=== PATIENT | male | born 1940 | race Caucasian/White ===

== ENCOUNTER → 2017-02-08 | Outpatient (CLI) | payer MEDICARE, OTHER | LOC: OD 08:33 | PROVIDERS: ATTEND Preventive Medicine Undersea and Hyperbaric Medicine | DX: L97.522 Non-pressure chronic ulcer of other part of left foot with fat layer exposed (principal) ==

== ENCOUNTER → 2017-03-15 | Outpatient (CLI) | payer MEDICARE, OTHER ==
--- NOTE | 2017-03-15 12:30 | RADIOLOGY REPORT (SQ) ---
EXAM DESCRIPTION: FOOT LEFT COMPLETE COMPLETED DATE/TIME: 03/15/2017 9:17 am REASON FOR STUDY: NON PRESSURE ULCER LT FOOT; FAT LAYER EXPOSED L97.522 NON-PRS CHRONIC ULCER OTH P RT LEFT FOOT W FAT LAYER COMPARISON: Foot films 05/09/2016, 07/12/2016, 07/26/2016, 08/10/2016, 09/12/2016, 02/08/2017 NUMBER OF VIEWS: Three views. TECHNIQUE: AP, lateral and oblique radiographic images acquired of the left foot. LIMITATIONS: Fiberglass boot artifact FINDINGS: MINERALIZATION: Normal. BONES: Old nonunited fracture distal left 5th metatarsal and the distal metaphysis. Demineralized 5t h toe phalanges. Stable bony resorption along the plantar aspect of 1st metatarsophalangeal joint adjacent to the ulce r. JOINTS: Fusion across the 1st MTP joint with K-wires unchanged. Advanced arthritis at the 1st TMT golden int with bony spurring. Advanced arthritis at the 2nd 3rd and 4th MTP joints with bony remodeling of the metatarsal heads. SOFT TISSUES: Plantar ulcer over the chest metatarsophalangeal joint region is not well seen. OTHER: No other significant finding. IMPRESSION: Stable appearance of the left foot compared to 02/08/2017. TECHNICAL DOCUMENTATION: JOB ID: [id number] [employer]- All Rights Reserved
== END ==
LOC: OD 08:18
PROVIDERS: ATTEND Preventive Medicine Undersea and Hyperbaric Medicine
DX: L97.522 Non-pressure chronic ulcer of other part of left foot with fat layer exposed (principal)

== ENCOUNTER → 2017-04-15 | Outpatient (CLI) | payer MEDICARE, OTHER ==
[2017-04-15 09:32] LABS: APPEARANCE,URINE CLEAR; BILIRUBIN,URINE NEGATIVE (NEGATIVE); GLUCOSE, URINE NEGATIVE (NEGATIVE); KETONES,URINE NEGATIVE (NEGATIVE); LEUKOCYTE ESTERASE,URINE NEGATIVE (NEGATIVE); NITRITE,URINE NEGATIVE (NEGATIVE); PROTEIN,URINE NEGATIVE (NEGATIVE); URINE SPECIFIC GRAVITY 1.006; UROBILINOGEN,URINE NEGATIVE mg/dL (<2.0)
--- NOTE | 2017-04-15 09:33 | RADIOLOGY REPORT (SQ) ---
EXAM DESCRIPTION: CHEST PA/LATERAL COMPLETED DATE/TIME: 04/15/2017 9:17 am REASON FOR STUDY: PRE OP COMPARISON: 08/16/2016 NUMBER OF VIEWS: Two view. TECHNIQUE: Frontal and lateral radiographic views of the chest acquired. LIMITATIONS: None. FINDINGS: LUNGS AND PLEURA: No opacities, masses or pneumothorax. No pleural effusion. MEDIASTINUM AND HILAR STRUCTURES: No masses or contour abnormalities. HEART AND VASCULATURE: Heart normal size. No evidence for failure. BONY STRUCTURES: No acute findings. HARDWARE: None. OTHER: No other significant finding. IMPRESSION: NO SIGNIFICANT RADIOGRAPHIC FINDING IN THE CHEST. TECHNICAL DOCUMENTATION: JOB ID: [id number] [employer]- All Rights Reserved
[2017-04-15 09:39] LABS: ABSOLUTE BASOPHILS # (AUTO) 0.1 10^3/uL (0.0-0.2); ABSOLUTE EOSINOPHILS # (AUTO) 0.2 10^3/uL (0.0-0.6); ABSOLUTE LYMPHOCYTES (AUTO) 1.4 10^3/uL (0.5-4.7); ABSOLUTE MONOCYTES (AUTO) 0.7 10^3/uL (0.1-1.4); ABSOLUTE NEUT (AUTO) 4.3 10^3/uL (1.7-8.2); BASOPHILS % (AUTO) 0.8 % (0-2); EOSINOPHILS % (AUTO) 3.5 % (0-6); HEMATOCRIT 37.2 % (37.9-51.0); HEMOGLOBIN 12.8 g/dL (13.5-17.0); HGB HCT DIFFERENCE 1.2; MEAN CORPUSCULAR HEMOGLOBIN 32.3 pg (27.0-33.4); MEAN CORPUSCULAR HGB CONC 34.3 g/dL (32.0-36.0); MEAN CORPUSCULAR VOLUME 94 fl (80-97); MONOCYTES % (AUTO) 10.4 % (3-13); RED BLOOD COUNT 3.95 10^6/uL (4.35-5.55); RED CELL DISTRIBUTION WIDTH 13.5 % (11.5-14.0); SEGMENTED NEUTROPHILS % (AUTO) 64.3 % (42-78); WHITE BLOOD COUNT 6.7 10^3/uL (4.0-10.5)
[2017-04-15 10:09] LABS: ANION GAP 9 (5-19); BLOOD UREA NITROGEN 11 mg/dL (7-20); CALCIUM 9.1 mg/dL (8.4-10.2); CARBON DIOXIDE 27 mmol/L (22-30); CHLORIDE 98 mmol/L (98-107); CREATININE RESULT 0.83 mg/dL (0.52-1.25); GLUCOSE 86 mg/dL (75-110); POTASSIUM 4.5 mmol/L (3.6-5.0); SODIUM 134.2 mmol/L (137-145)
--- NOTE | 2017-04-15 12:21 | EKG REPORT ---
SEVERITY:- OTHERWISE NORMAL ECG - SINUS RHYTHM BORDERLINE LEFT AXIS DEVIATION : Confirmed by: Jake Lopez 15-Apr-2017 12:19:55
== END ==
LOC: OD 07:57
PROVIDERS: ATTEND Orthopaedic Surgery
DX: Z01.810 Encounter for preprocedural cardiovascular examination (principal); Z01.812 Encounter for preprocedural laboratory examination; Z01.818 Encounter for other preprocedural examination; E11.9 Type 2 diabetes mellitus without complications
CPT/HCPCS: 36415; 71020; 80048; 81001; 83036; 85025; 93005; 93010

== ENCOUNTER 2017-05-13 09:12 | Inpatient (IN) | payer MEDICARE, OTHER ==
[~2017-05-13 09:12] MED LIST: BUPIVACAINE INJ/PF LIPOSOME/PF 266 MG/20 ML SDV IJ PRN; BUPIVACAINE INJ/PF LIPOSOME/PF 266 MG/20 ML SDV ONE; CEFAZOLIN INJ 1 GM VIAL IV PRN; IBUPROFEN 800 MG/NS 250 ML IV PRN; LACTATED RINGERS 1000 ML IV PRN; LANSOPRAZOLE 15 MG TAB.RAP.DR PO PRN; LIDOCAINE 0.5% INJ-PF (5 MG/ML) 50 ML SDV SUBCUT PRN; OXYCODONE HCL SR 10 MG TABLET PO PRN; SCOPOLAMINE HYDROBROMIDE 1.5 MG PATCH.TD72 TOP PRN; THROMBIN (BOVINE) 5000 UNIT EPITAXIS KIT ONE; THROMBIN (BOVINE) TOPICAL 20000 UNIT VIAL ONE; VANCOMYCIN HCL 1,000 MG in DEXTROSE 5%-WATER 250 ML IV SCH
[2017-05-13 10:23] LABS: PROTHROMBIN TIME 14.2 SEC (11.4-15.4)
[2017-05-13 10:24] LABS: PARTIAL THROMBOPLASTIN TIME 40.5 SEC (23.5-35.8)
[2017-05-13] MEDS ORDERED: PROPOFOL INJ 200 MG/20 ML VIAL IV ONE (10:48)
[2017-05-13] MEDS ORDERED: TRANEXAMIC ACID INJ/PF 1,000 MG/10 ML SDV IV ONE ×3 (10:48→17:00)
[2017-05-13] MEDS ORDERED: ONDANSETRON HCL INJ/PF 4 MG/2 ML SDV ONE (10:48)
[2017-05-13] MEDS ORDERED: MIDAZOLAM 2 MG/2 ML INJ ONE (10:48)
[2017-05-13] MEDS ORDERED: DIPHENHYDRAMINE HCL 50 MG/ML VIAL IV PRN ×2 (11:47→12:46)
[2017-05-13] MEDS ORDERED: MORPHINE SULFATE 10 MG/ML INJ IV PRN ×3 (11:47→12:46)
[2017-05-13] MEDS ORDERED: FENTANYL CITRATE INJ/PF 100 MCG/2 ML AMPUL IV PRN ×3 (11:47)
[2017-05-13] MEDS ORDERED: MEPERIDINE HCL/PF INJ 25 MG/1 ML DISP.SYRIN IV PRN (11:47)
[2017-05-13] MEDS ORDERED: VANCOMYCIN HCL INJ 1000 MG VIAL ONE (11:50)
[2017-05-13] MEDS ORDERED: ONDANSETRON 4 MG TAB.RAPDIS PO PRN ×2 (12:46→14:13)
[2017-05-13] MEDS ORDERED: RINGERS SOLUTION,LACTATED 1,000 ML IV PRN (12:46)
[2017-05-13] MEDS ORDERED: ZOLPIDEM TARTRATE 5 MG TABLET PO PRN (12:46)
[2017-05-13] MEDS ORDERED: ACETAMINOPHEN 325 MG TABLET PO PRN (12:46)
[2017-05-13] MEDS ORDERED: ONDANSETRON HCL INJ/PF 4 MG/2 ML SDV IV PRN (12:46)
[2017-05-13] MEDS ORDERED: OXYCODONE HCL IR 5 MG TABLET PO PRN (12:46)
[2017-05-13] MEDS ORDERED: (PENDING PHARMACY ID) (Ketotifen Fumarate [Refresh] 5 ML) OP PRN (12:46)
[2017-05-13] MEDS ORDERED: MAG HYDROX/AL HYDROX/SIMETH SUSP 30 ML UDCUP PO PRN (12:46)
[2017-05-13] MEDS ORDERED: MORPHINE SULFATE 10 MG/ML INJ IM PRN (12:46)
--- NOTE | 2017-05-13 12:46 | Operative Report ---
Operative Report DATE OF SURGERY: 05/13/17 PREOPERATIVE DIAGNOSIS: Left knee arthritis OPERATION: Knee arthroplasty left SURGEON: COLT MARK ANESTHESIA: Spinal TISSUE REMOVED OR ALTERED: Bone to pathology ESTIMATED BLOOD LOSS: 100 PROCEDURE: Implants used: Femur: Bryson triathlon #8 CR femur Tibia: 7 tibia Tibial liner: 9 mm CS insert Patella: 38 mm oval patella Procedure with the patient supine on the operating table the left the limb is prepped and draped in a sterile fashion. The limb was elevated for exsanguination and the tourniquet inflated to 280 torr. A standard midline median parapatellar approach the knee is taken. Access is gained to the femoral canal through the intercondylar notch. Intramedullary alignment instrumentation used to resect 10 mm of distal femur in 5 of valgus. Sizing guide indicated a size 8 femur. Appropriate cutting jig is then used to fashion anterior posterior and chamfer cuts. A trial reduction femurs performed and this is judged to be adequate. Attention was next turned to the tibia. Using an extra medullary alignment system 13 millimeters was resected off the lateral tibial plateau for medial bone loss. This is sized to a size 7 tibia. A trial reduction was now performed with a 8 femur and a 7 tibia using a 9 millimeters spacer. It is full extension and central patellofemoral tracking. The articular surface the patella was next resected using an oscillating saw. All trial implants were removed. Polymethylmethacrylate is mixed and used to cement the above implants in place. On adequate curing the cement excess cement was removed the tourniquet was deflated hemostasis obtained the wound is then closed in layers using interrupted Vicryl followed by brendan. A sterile compressive dressing was applied and the patient returned to recovery room in satisfactory condition.
[2017-05-13] MEDS ORDERED: DEXTROSE 40% GEL 15 GM TUBE X 2 PO PRN (13:41)
[2017-05-13] MEDS ORDERED: DEXTROSE 50%-WATER SYRINGE 25 GM/50 ML DOSE IV PRN (13:41)
[2017-05-13] MEDS ORDERED: DEXTROSE 50%-WATER SYRINGE 12.5 GM/25 ML DOSE IV PRN (13:41)
[2017-05-13] MEDS ORDERED: DEXTROSE 40% GEL 15 GM TUBE PO PRN (13:41)
[2017-05-13] MEDS ORDERED: GLUCAGON,HUMAN RECOMB 1 MG INJ IM PRN (13:41)
[2017-05-13] MEDS ORDERED: POLYVINYL ALCOHOL 1.4% OPH SOLN 15 ML OU PRN (14:31)
--- NOTE | 2017-05-13 14:42 | RADIOLOGY REPORT (SQ) ---
EXAM DESCRIPTION: KNEE LEFT 2 VIEWS COMPLETED DATE/TIME: 05/13/2017 2:15 pm REASON FOR STUDY: Post OP -Long Cassette in PACU M17.12 UNILATERAL PRIMARY OSTEOARTHRITIS, LEFT KNE E COMPARISON: None. NUMBER OF VIEWS: Two view(s). TECHNIQUE: Digital radiographic images of the left knee post-procedure. LIMITATIONS: None. FINDINGS: BONES: No worrisome or unexpected findings post-procedure. DEVICE: Total knee arthroplasty. SOFT TISSUES: No worrisome findings. Expected postoperative soft tissue changes. IMPRESSION: SATISFACTORY POSTOPERATIVE LEFT KNEE. TECHNICAL DOCUMENTATION: JOB ID: [id number] [employer]- All Rights Reserved
[2017-05-13] MEDS: MORPHINE SULFATE 10 MG/ML INJ IV PRN ×2 (17:17→21:00)
[2017-05-13] MEDS: SENNOSIDES/DOCUSATE 8.6-50 MG 1 EACH TABLET PO SCH (17:32)
[2017-05-13] MEDS ORDERED: IBUPROFEN 800 MG in NORMAL SALINE 250 ML IV SCH (18:00)
--- NOTE | 2017-05-13 19:22 | EKG REPORT ---
SEVERITY:- ABNORMAL ECG - ATRIAL FIBRILLATION BORDERLINE LEFT AXIS DEVIATION : Confirmed by: Carlitos Ferreira MD 13-May-2017 19:21:53
[2017-05-13] MEDS ORDERED: OXYCODONE HCL SR 10 MG TABLET PO SCH (22:00)
[2017-05-13] MEDS ORDERED: INSULIN LISPRO 100 UNIT/ML 3 ML VIAL SUBCUT SCH (22:00)
[2017-05-13] MEDS: GABAPENTIN 400 MG CAPSULE PO SCH (22:10)
[2017-05-13] MEDS: IBUPROFEN 800 MG in NORMAL SALINE 250 ML IV SCH (22:11)
[2017-05-13] MEDS: DABIGATRAN ETEXILATE 150 MG CAPSULE PO SCH (22:12)
[2017-05-14] MEDS ORDERED: VANCOMYCIN HCL INJ 1000 MG VIAL ONE (00:54)
[2017-05-14] MEDS ORDERED: VANCOMYCIN HCL 1,000 MG in DEXTROSE 5%-WATER 250 ML IV ONE (01:00)
[2017-05-14 06:05] LABS: HEMATOCRIT 34.6 % (37.9-51.0); HEMOGLOBIN 12.2 g/dL (13.5-17.0); MEAN CORPUSCULAR HEMOGLOBIN 34.3 pg (27.0-33.4); MEAN CORPUSCULAR HGB CONC 35.3 g/dL (32.0-36.0); MEAN CORPUSCULAR VOLUME 97 fl (80-97); RED BLOOD COUNT 3.56 10^6/uL (4.35-5.55); RED CELL DISTRIBUTION WIDTH 13.4 % (11.5-14.0); WHITE BLOOD COUNT 9.4 10^3/uL (4.0-10.5)
[2017-05-14 06:19] LABS: ANION GAP 11 (5-19); BLOOD UREA NITROGEN 15 mg/dL (7-20); CARBON DIOXIDE 26 mmol/L (22-30); CHLORIDE 95 mmol/L (98-107); CREATININE RESULT 0.82 mg/dL (0.52-1.25); GLUCOSE 139 mg/dL (75-110); POTASSIUM 4.6 mmol/L (3.6-5.0); SODIUM 131.6 mmol/L (137-145)
[2017-05-14] MEDS: IBUPROFEN 800 MG in NORMAL SALINE 250 ML IV SCH ×3 (06:36→22:41)
[2017-05-14] MEDS: GABAPENTIN 400 MG CAPSULE PO SCH ×3 (06:39→22:42)
[2017-05-14] MEDS: LANSOPRAZOLE 30 MG TAB.RAP.DR PO SCH (06:40)
--- NOTE | 2017-05-14 07:11 | PDOC PROGRESS REPORT ---
Subjective Progress Note for:: 05/14/17 Subjective:: Patient agitated and confused. The patient recognizes his own confusion. Physical Exam Vital Signs: Temp Pulse Resp BP Pulse Ox 36.5 C 60 16 141/55 H 91 L 05/14/17 03:32 05/14/17 03:32 05/14/17 03:32 05/14/17 03:32 05/14/17 03:32 Intake & Output 05/13/17 05/14/17 05/15/17 06:59 06:59 06:59 Intake Total 2358 Output Total 1125 Balance 1233 Weight 96.62 kg General appearance: PRESENT: disheveled, mild distress Head exam: PRESENT: normocephalic Respiratory exam: PRESENT: unlabored Cardiovascular exam: PRESENT: bradycardia, irregular rhythm Pulses: PRESENT: +1 pedal pulses bilateral Vascular exam: PRESENT: normal capillary refill GI/Abdominal exam: PRESENT: soft Rectal exam: PRESENT: deferred Extremities exam: PRESENT: other - Left knee picot dressing is clean dry and intact. Neurological exam: PRESENT: altered, awake. ABSENT: motor sensory deficit Psychiatric exam: PRESENT: agitated Skin exam: PRESENT: dry, intact, warm. ABSENT: cyanosis, rash Results Laboratory Results: 05/14/17 05:00 05/14/17 05:00 05/13/17 05/13/17 05/14/17 09:57 09:57 05:00 WBC 9.4 RBC 3.56 L Hgb 12.2 L Hct 34.6 L MCV 97 MCH 34.3 H MCHC 35.3 RDW 13.4 Plt Count 193 Sodium Potassium Chloride Carbon Dioxide Anion Gap BUN Creatinine Est GFR ( Amer) Est GFR (Non-Af Amer) Glucose 111 H Calcium Blood Type A NEGATIVE Antibody Screen NEGATIVE 05/14/17 05:00 WBC RBC Hgb Hct MCV MCH MCHC RDW Plt Count Sodium 131.6 L Potassium 4.6 Chloride 95 L Carbon Dioxide 26 Anion Gap 11 BUN 15 Creatinine 0.82 Est GFR ( Amer) > 60 Est GFR (Non-Af Amer) > 60 Glucose 139 H Calcium 9.0 Blood Type Antibody Screen Impressions: Knee X-Ray 05/13/17 12:47 IMPRESSION: SATISFACTORY POSTOPERATIVE LEFT KNEE. Status: Imported from PACS Assessment & Plan - Diagnosis (1) Arthritis of knee, left Is this a current diagnosis for this admission?: YesPlan: 76-year-old white male postop day 1 from a left knee arthroplasty with postoperative confusion and agitation which was presumably related to pharmaceutical effects and metabolic encephalopathy. Both morphine and OxyContin have been discontinued. The patient also has had decreased urine output but both BUN and creatinine remained on elevated. The for ongoing physical therapy today with anticipated discharge either home or to a senior care facility depending on his functional recovery - Time Time Spent with patient: 15-24 minutes Anticipated discharge: Other Within: Other
[2017-05-14] MEDS: EZETIMIBE 10 MG TABLET PO SCH (09:29)
[2017-05-14] MEDS: GLIPIZIDE XL 5 MG TAB.ER.24 PO SCH (09:29)
[2017-05-14] MEDS: LISINOPRIL 10 MG TABLET PO SCH (09:30)
[2017-05-14] MEDS: PRENATAL VITAMIN W-O CA NO5/FE FUMARATE/FA CAPSULE PO SCH (09:31)
[2017-05-14] MEDS: SITAGLIPTIN PHOSPHATE 50 MG TABLET PO SCH (09:32)
[2017-05-14] MEDS: SENNOSIDES/DOCUSATE 8.6-50 MG 1 EACH TABLET PO SCH ×2 (09:34→17:07)
[2017-05-14] MEDS: DABIGATRAN ETEXILATE 150 MG CAPSULE PO SCH ×2 (10:26→22:42)
[2017-05-14] MEDS: METOPROLOL SUCCINATE 50 MG TAB.SR.24H PO SCH (10:26)
[2017-05-14] MEDS: INSULIN LISPRO 100 UNIT/ML 3 ML VIAL SUBCUT PRN ×2 (12:54→17:05)
[2017-05-15] MEDS: LANSOPRAZOLE 30 MG TAB.RAP.DR PO SCH (06:42)
[2017-05-15] MEDS: GABAPENTIN 400 MG CAPSULE PO SCH ×3 (06:43→21:03)
[2017-05-15] MEDS: IBUPROFEN 800 MG in NORMAL SALINE 250 ML IV SCH ×2 (06:43→13:21)
[2017-05-15 07:47] LABS: HEMATOCRIT 32.4 % (37.9-51.0); HEMOGLOBIN 11.5 g/dL (13.5-17.0); HGB HCT DIFFERENCE 2.1; MEAN CORPUSCULAR HEMOGLOBIN 34.3 pg (27.0-33.4); MEAN CORPUSCULAR HGB CONC 35.4 g/dL (32.0-36.0); MEAN CORPUSCULAR VOLUME 97 fl (80-97); RED BLOOD COUNT 3.34 10^6/uL (4.35-5.55); WHITE BLOOD COUNT 12.3 10^3/uL (4.0-10.5)
[2017-05-15] MEDS: GLIPIZIDE XL 5 MG TAB.ER.24 PO SCH (08:45)
[2017-05-15] MEDS: PRENATAL VITAMIN W-O CA NO5/FE FUMARATE/FA CAPSULE PO SCH (10:26)
[2017-05-15] MEDS: LISINOPRIL 10 MG TABLET PO SCH (10:26)
[2017-05-15] MEDS: EZETIMIBE 10 MG TABLET PO SCH (10:26)
[2017-05-15] MEDS: SENNOSIDES/DOCUSATE 8.6-50 MG 1 EACH TABLET PO SCH ×2 (10:26→17:46)
[2017-05-15] MEDS: SITAGLIPTIN PHOSPHATE 50 MG TABLET PO SCH (10:26)
[2017-05-15] MEDS: METOPROLOL SUCCINATE 50 MG TAB.SR.24H PO SCH (10:26)
[2017-05-15] MEDS: DABIGATRAN ETEXILATE 150 MG CAPSULE PO SCH ×2 (10:26→21:01)
[2017-05-15] MEDS: INSULIN LISPRO 100 UNIT/ML 3 ML VIAL SUBCUT PRN (12:27)
[2017-05-15] MEDS ORDERED: HALOPERIDOL LACTATE INJ 5 MG/1 ML VIAL IV PRN (22:21)
[2017-05-16] MEDS: GABAPENTIN 400 MG CAPSULE PO SCH ×3 (05:06→21:56)
[2017-05-16] MEDS: LANSOPRAZOLE 30 MG TAB.RAP.DR PO SCH (05:06)
[2017-05-16 05:56] LABS: HEMATOCRIT 31.4 % (37.9-51.0); HGB HCT DIFFERENCE 1.6; MEAN CORPUSCULAR HEMOGLOBIN 33.8 pg (27.0-33.4); MEAN CORPUSCULAR VOLUME 97 fl (80-97); RED BLOOD COUNT 3.26 10^6/uL (4.35-5.55); RED CELL DISTRIBUTION WIDTH 13.3 % (11.5-14.0); WHITE BLOOD COUNT 12.1 10^3/uL (4.0-10.5)
[2017-05-16] MEDS ORDERED: TRAMADOL HCL 50 MG TABLET PO PRN (06:52)
--- NOTE | 2017-05-16 07:09 | PDOC PROGRESS REPORT ---
Subjective Progress Note for:: 05/16/17 Subjective:: Altered mental status last night leading to the need to institute Haldol for behavior control Physical Exam Vital Signs: Temp Pulse Resp BP Pulse Ox 37.9 C 79 20 135/79 H 95 05/16/17 04:17 05/16/17 04:17 05/16/17 04:17 05/16/17 04:17 05/16/17 04:17 Intake & Output 05/15/17 05/16/17 05/17/17 06:59 06:59 06:59 Intake Total 1696 1095 Output Total 1135 1310 Balance 561 -215 Weight 102.6 kg General appearance: PRESENT: mild distress Head exam: PRESENT: normocephalic Respiratory exam: PRESENT: unlabored Pulses: PRESENT: +1 pedal pulses bilateral Vascular exam: PRESENT: normal capillary refill GI/Abdominal exam: PRESENT: soft Rectal exam: PRESENT: deferred Extremities exam: PRESENT: other - Left knee picot dressing remains unchanged Neurological exam: PRESENT: alert Psychiatric exam: PRESENT: agitated Skin exam: PRESENT: dry, intact, warm. ABSENT: cyanosis, rash Results Laboratory Results: 05/16/17 05:04 05/14/17 05:00 05/15/17 05/16/17 04:26 05:04 WBC 12.3 H 12.1 H RBC 3.34 L 3.26 L Hgb 11.5 L 11.0 L Hct 32.4 L 31.4 L MCV 97 97 MCH 34.3 H 33.8 H MCHC 35.4 35.0 RDW 13.0 13.3 Plt Count 158 169 Impressions: Knee X-Ray 05/13/17 12:47 IMPRESSION: SATISFACTORY POSTOPERATIVE LEFT KNEE. Status: Imported from PACS Assessment & Plan - Diagnosis (1) Arthritis of knee, left Is this a current diagnosis for this admission?: Yes Plan: 76-year-old white male status post left knee arthroplasty with ongoing mental status changes. Medications have again been altered. Oxycodone and Ambien have been discontinued. Tramadol has been inserted as analgesic. Haldol has been inserted for behavioral control. Limited progress with physical therapy presumably because of limited cooperation. Anticipate the need for intermediate facility placement. - Time Time Spent with patient: 15-24 minutes Anticipated discharge: SNF Within: Other
[2017-05-16] MEDS: PRENATAL VITAMIN W-O CA NO5/FE FUMARATE/FA CAPSULE PO SCH (09:56)
[2017-05-16] MEDS: METOPROLOL SUCCINATE 50 MG TAB.SR.24H PO SCH (09:56)
[2017-05-16] MEDS: LISINOPRIL 10 MG TABLET PO SCH (09:59)
[2017-05-16] MEDS: SITAGLIPTIN PHOSPHATE 50 MG TABLET PO SCH (09:59)
[2017-05-16] MEDS: GLIPIZIDE XL 5 MG TAB.ER.24 PO SCH (10:00)
[2017-05-16] MEDS: SENNOSIDES/DOCUSATE 8.6-50 MG 1 EACH TABLET PO SCH ×2 (10:01→17:08)
[2017-05-16] MEDS: EZETIMIBE 10 MG TABLET PO SCH (10:02)
[2017-05-16] MEDS: DABIGATRAN ETEXILATE 150 MG CAPSULE PO SCH ×2 (10:03→21:53)
[2017-05-16 14:14] LABS: APPEARANCE,URINE CLEAR; BILIRUBIN,URINE NEGATIVE (NEGATIVE); GLUCOSE, URINE NEGATIVE (NEGATIVE); KETONES,URINE TRACE mg/dL (NEGATIVE); LEUKOCYTE ESTERASE,URINE NEGATIVE (NEGATIVE); NITRITE,URINE NEGATIVE (NEGATIVE); PROTEIN,URINE 30 mg/dL (NEGATIVE); URINE SPECIFIC GRAVITY 1.011; UROBILINOGEN,URINE NEGATIVE mg/dL (<2.0)
[2017-05-16] MEDS ORDERED: ONDANSETRON HCL INJ/PF 4 MG/2 ML SDV IV PRN (15:00)
[2017-05-16] MEDS: INSULIN LISPRO 100 UNIT/ML 3 ML VIAL SUBCUT PRN (21:50)
[2017-05-17] MEDS: GABAPENTIN 400 MG CAPSULE PO SCH ×2 (06:12→13:45)
[2017-05-17] MEDS: LANSOPRAZOLE 30 MG TAB.RAP.DR PO SCH (06:12)
--- NOTE | 2017-05-17 06:41 | PDOC DISCHARGE SUMMARY ---
General - Admit/Disc Date/PCP Admission Date/Primary Care Provider: 05/13/17 19:38 AZAEL SNELL MD Discharge Date: 05/17/17 - Discharge Diagnosis (1) Arthritis of knee, left Is this a current diagnosis for this admission?: Yes - Additional Information Resuscitation Status: Full Code Discharge Diet: As Tolerated, Regular Discharge Activity: Balance Activity w/Rest, No Driving, No tub bath Home Medications: Dabigatran Etexilate Mesylate [Pradaxa 150 mg Capsule] 150 mg PO Q12 04/16/14 Ezetimibe [Zetia 10 mg Tablet] 10 mg PO DAILY 04/16/14 Gabapentin [Neurontin 400 mg Capsule] 400 mg PO TID 04/16/14 Glipizide [Glipizide Xl] 5 mg PO DAILY 04/16/14 Lisinopril [Prinivil 40 mg Tablet] 40 mg PO DAILY 04/16/14 Multivitamin [Tab-A-Liseth] 1 each PO DAILY 04/16/14 Metoprolol Succinate [Toprol Xl 50 mg Tab.sr] 100 mg PO DAILY 04/22/14 Acetaminophen 2 tab PO QID 08/10/16 Ketotifen Fumarate [Refresh] 5 ml OP QID PRN 08/10/16 Sitagliptin Phosphate [Januvia 50 mg Tablet] 100 mg PO DAILY 08/10/16 Tramadol HCl [Ultram 50 mg Tablet] 50 mg PO Q6HP PRN tablet 05/17/17 History of Present Illness History of Present Illness: HAYDEE KHAN is a 76 year old male with progressive left knee pain and functional disability secondary osteoarthritis. Patient is admitted for elective left knee arthroplasty. Hospital Course Hospital Course: Patient is admitted through the operating room where he undergoes uncomplicated left knee arthroplasty. Is returned to the floor in satisfactory condition. He gradually developed mental status changes which are thought to be metabolic encephalopathy. All opioids and Ambien are discontinued. Tramadol was instituted for pain control. Mental status clears. The patient makes excellent progress with physical therapy and subsequently for discharge home with home health nursing Physical Exam Vital Signs: Temp Pulse Resp BP Pulse Ox 36.9 C 66 18 134/57 H 96 05/17/17 00:41 05/17/17 02:00 05/17/17 00:41 05/17/17 00:41 05/17/17 00:41 Intake & Output 05/15/17 05/16/17 05/17/17 06:59 06:59 06:59 Intake Total 1696 1095 570 Output Total 1135 1310 1425 Balance 568 -158 -302 Weight 102.6 kg General appearance: PRESENT: no acute distress Head exam: PRESENT: normocephalic Eye exam: PRESENT: EOMI Respiratory exam: PRESENT: unlabored Pulses: PRESENT: +1 pedal pulses bilateral Vascular exam: PRESENT: normal capillary refill GI/Abdominal exam: PRESENT: soft Rectal exam: PRESENT: deferred Extremities exam: PRESENT: other - Left lower extremity picot dressing is clean dry and intact. There is minimal pedal edema. Distal neurovascular examination is intact. Neurological exam: PRESENT: alert, awake, oriented to person, oriented to place , oriented to time, oriented to situation. ABSENT: motor sensory deficit Psychiatric exam: PRESENT: appropriate affect, normal mood. ABSENT: homicidal ideation, suicidal ideation Skin exam: PRESENT: dry, intact, warm. ABSENT: cyanosis, rash Results Laboratory Results: 05/16/17 05:04 05/14/17 05:00 05/16/17 01:38 Urine Color YELLOW Urine Appearance CLEAR Urine pH 6.0 Ur Specific [place] 1.011 Urine Protein 30 H Urine Glucose (UA) NEGATIVE Urine Ketones TRACE H Urine Blood MODERATE H Urine Nitrite NEGATIVE Ur Leukocyte Esterase NEGATIVE Urine WBC (Auto) 6 Urine RBC (Auto) 9 Impressions: Knee X-Ray 05/13/17 12:47 IMPRESSION: SATISFACTORY POSTOPERATIVE LEFT KNEE. Status: Imported from PACS Plan Discharge Plan: Patient to be discharged home with home health nursing, home health physical therapy, wheeled walker, bedside commode. Visiting nurse service to change left knee picot dressing on postop day 7 and replaced with an OpSite. Follow- up will be with Dr. Gaffney and [facility] for surgery in 2 weeks for staple removal.
[2017-05-17] MEDS: GLIPIZIDE XL 5 MG TAB.ER.24 PO SCH (08:56)
[2017-05-17] MEDS: DABIGATRAN ETEXILATE 150 MG CAPSULE PO SCH (08:56)
[2017-05-17] MEDS: LISINOPRIL 10 MG TABLET PO SCH (08:57)
[2017-05-17] MEDS: METOPROLOL SUCCINATE 50 MG TAB.SR.24H PO SCH (08:59)
[2017-05-17] MEDS: EZETIMIBE 10 MG TABLET PO SCH (08:59)
[2017-05-17] MEDS: SITAGLIPTIN PHOSPHATE 50 MG TABLET PO SCH (09:00)
[2017-05-17] MEDS: PRENATAL VITAMIN W-O CA NO5/FE FUMARATE/FA CAPSULE PO SCH (09:00)
[2017-05-17] MEDS: SENNOSIDES/DOCUSATE 8.6-50 MG 1 EACH TABLET PO SCH (09:00)
[2017-05-17] MEDS ORDERED: NYSTATIN/DEXAMETH/DIPHEN SUSP 120 ML PO SCH (10:00)
[2017-05-17 11:55] VITALS: BP 131/60
== END 2017-05-17 13:45 | disposition home health service (06) | DRG 469 ==
LOC: UNDOADMIN 09:12 → INOR 09:12 → 3S 14:51 → 3W 18:22 → 3S 19:38 → 3W 19:38
PROVIDERS: ADMIT Orthopaedic Surgery; ATTEND Orthopaedic Surgery
PROC: 0SRD0J9 Replacement of Left Knee Joint with Synthetic Substitute, Cemented, Open Approach (ICD-10-PCS; principal; 2017-05-13 11:30)
DX: M17.12 Unilateral primary osteoarthritis, left knee (principal); G92 Toxic encephalopathy; E78.5 Hyperlipidemia, unspecified; I48.0 Paroxysmal atrial fibrillation; E11.319 Type 2 diabetes mellitus with unspecified diabetic retinopathy without macular edema; E11.40 Type 2 diabetes mellitus with diabetic neuropathy, unspecified; G25.81 Restless legs syndrome; T40.2X5A Adverse effect of other opioids, initial encounter; Y92.230 Patient room in hospital as the place of occurrence of the external cause
CPT/HCPCS: 01402; 36415; 80048; 81001; 82947; 82962; 85027; 85610; 85730; 86850; 86900; 86901; 88305; 88311; 93005; 93010; 94799; C2625; C9290; G8978-GP; G8979-GP; G8987-GO; G8988-GO; J0690; J1630; J1741; J1815; J2250; J2270; J2405; J2704; J3370; J3490; J7050; J7060

== ENCOUNTER → 2018-08-10 | Outpatient (CLI) | payer MEDICARE, OTHER ==
--- NOTE | 2018-08-11 11:06 | RADIOLOGY REPORT (SQ) ---
EXAM DESCRIPTION: PET CT SKULL/THIGH COMPLETED DATE/TIME: 08/10/2018 9:44 pm REASON FOR STUDY: LOCALIZED SWELLING, MASS AND LUMP OF NECK R22.1 LOCALIZED SWELLING, MASS AND LUMP , NECK COMPARISON: None. RADIONUCLIDE AND DOSE: 10.4 mCi F18 FDG The route of agent administration: Intravenous FASTING BLOOD SUGAR: 88 mg/dl CONTRAST TYPE AND DOSE: No CT contrast given. TECHNIQUE: Blood glucose level was verified. Above dose of FDG was injected intravenously. 2-D seg mented attenuation correction images were obtained from the base of the skull to the midthighs. Nonc ontrast CT images were obtained for attenuation correction and fusion with emission images. CT image s were performed without oral or intravenous contrast and are not sensitive for parenchymal lesions. A series of overlapping emission PET images were obtained. Images reviewed and manipulated at [facility] work station by the radiologist. Images stored on PACS. LIMITATIONS: None. FINDINGS: HEAD AND NECK: 3 enlarged lymph nodes are present along the left neck as follows: 2.7 x 1.7 cm level 2 B lymph node inferior aspect of the left parotid gland axial image 31 with SUV 7 .5 2.2 x 1.6 cm left level 2 B lymph node axial image 34, SUV 7.1 2.5 x 2 cm level 3 lymph node left carotid space axial image 43, SUV 6.4 CHEST: No areas of abnormal metabolic activity in the chest. ABDOMEN AND PELVIS: No areas of abnormal metabolic activity in the abdomen or pelvis. Expected physi ologic activity is present in the genitourinary system and bowel. PROXIMAL LOWER EXTREMITIES: No areas of abnormal metabolic activity in the soft tissues of the lower extremities. BONES: There is a small bandlike focus of increased uptake upper endplate of L5 adjacent to the L4-5 disc space probably a Schmorl's node with SUV of 4.[address] FINDINGS: Spotty coronary artery calcifications. Clips post cholecystectomy. OTHER: Liver background SUV 1.9. Blood pool background SUV 1.6 IMPRESSION: Hypermetabolic left neck lymph nodes as above. These could be due to primary lymphoprol iferative process or these could be involved with upper aerodigestive tract malignancy, with primary not identified by PET-CT. TECHNICAL DOCUMENTATION: JOB ID: [id number] [employer]- All Rights Reserved Reading location - IP/workstation name: [email or web address]
== END ==
LOC: RAD 18:16
PROVIDERS: ATTEND Otolaryngology
DX: C07 Malignant neoplasm of parotid gland (principal)
CPT/HCPCS: 78815; A9552

== ENCOUNTER 2018-11-04 05:48 | Day surgery (SDC) | payer MEDICARE, OTHER ==
[~2018-11-04 05:48] MED LIST changes: -BUPIVACAINE INJ/PF LIPOSOME/PF 266 MG/20 ML SDV IJ PRN; -BUPIVACAINE INJ/PF LIPOSOME/PF 266 MG/20 ML SDV ONE; +CEFAZOLIN 1 GM/D5W RTU 1 GM/50 ML RTUPB IV ONE; +CEFAZOLIN 1 GM/D5W RTU 1 GM/50 ML RTUPB IV PRN; -CEFAZOLIN INJ 1 GM VIAL IV PRN; +DEXTROSE 5%-1/2 NORMAL SALINE 1,000 ML IV PRN; +DIAZEPAM 5 MG TABLET ONE; +DIAZEPAM 5 MG TABLET PO PRN; -IBUPROFEN 800 MG/NS 250 ML IV PRN; -LACTATED RINGERS 1000 ML IV PRN; -LANSOPRAZOLE 15 MG TAB.RAP.DR PO PRN; -LIDOCAINE 0.5% INJ-PF (5 MG/ML) 50 ML SDV SUBCUT PRN; -OXYCODONE HCL SR 10 MG TABLET PO PRN; +OXYCODONE-ACETAMINOPHEN 5-325 MG TABLET ONE; +OXYCODONE-ACETAMINOPHEN 5-325 MG TABLET PO PRN; -SCOPOLAMINE HYDROBROMIDE 1.5 MG PATCH.TD72 TOP PRN; -THROMBIN (BOVINE) 5000 UNIT EPITAXIS KIT ONE; -THROMBIN (BOVINE) TOPICAL 20000 UNIT VIAL ONE; -VANCOMYCIN HCL 1,000 MG in DEXTROSE 5%-WATER 250 ML IV SCH
[2018-11-04] MEDS ORDERED: BACITRACIN INJ 50,000 UNIT VIAL ONE (07:09)
[2018-11-04] MEDS ORDERED: LIDOCAINE 0.5% INJ-PF (5 MG/ML) 50 ML SDV ONE (07:09)
[2018-11-04] MEDS ORDERED: MIDAZOLAM 2 MG/2 ML INJ ONE (07:28)
[2018-11-04] MEDS ORDERED: FENTANYL CITRATE INJ/PF 100 MCG/2 ML AMPUL ONE (07:29)
[2018-11-04 07:30] LABS: ANION GAP 8 (5-19); BLOOD UREA NITROGEN 13 mg/dL (7-20); CALCIUM 9.1 mg/dL (8.4-10.2); CARBON DIOXIDE 28 mmol/L (22-30); CHLORIDE 100 mmol/L (98-107); GLUCOSE 117 mg/dL (75-110); POTASSIUM 4.5 mmol/L (3.6-5.0); SODIUM 136.4 mmol/L (137-145)
[2018-11-04 07:33] LABS: HEMATOCRIT 35.7 % (37.9-51.0); HEMOGLOBIN 12.7 g/dL (13.5-17.0); MEAN CORPUSCULAR HGB CONC 35.6 g/dL (32.0-36.0); MEAN CORPUSCULAR VOLUME 93 fl (80-97); PLATELET COUNT 206 10^3/uL (150-450); RED BLOOD COUNT 3.85 10^6/uL (4.35-5.55); RED CELL DISTRIBUTION WIDTH 12.9 % (11.5-14.0); WHITE BLOOD COUNT 6.3 10^3/uL (4.0-10.5)
--- NOTE | 2018-11-04 09:31 | Discharge Summary ---
Discharge Summary (SDC) - Discharge Final Diagnosis: #1 [place] cell cancer. 2. Diabetes mellitus. 3. Hypertension. Date of Surgery: 11/04/18 Discharge Date: 11/04/18 Condition: Good Treatment or Instructions: Discharge home he is scratch that. Diet , as tolerated, when fully awake advance as tolerated. Activities within moderation encouraged. Follow up in my office by appointment in about [1 week]. Call for appointment. Leave wounds [covered], [keep clean and dry, until office visit in 1 week]. Hold of on school/work [until evaluation in office]. Meds per med rec. Percocet. May shower [in 48 hrs], [try to keep operated area as dry as possible]. Prescriptions: Oxycodone HCl/Acetaminophen [Percocet 5-325 mg Tablet] 1 tab PO ASDIR PRN #15 tab PRN Reason: Referrals: IKER LLOYD DO [Primary Care Provider] - Discharge Diet: As Tolerated Respiratory Treatments at Home: Deep Breathing/Coughing Discharge Activity: Activity As Tolerated Report the Following to Your Physician Immediately: Shortness of Breath
--- NOTE | 2018-11-04 09:33 | Operative Report ---
Operative Report DATE OF SURGERY: 11/04/18 PREOPERATIVE DIAGNOSIS: #1 [place] cell cancer. 2. Diabetes mellitus. 3. Hyp ertension. POSTOPERATIVE DIAGNOSIS: #1 [place] cell cancer. 2. Diabetes mellitus. 3. Hypertension. OPERATION: 1. Ultrasound evaluation of the right internal jugular vein. 2. Port-A-Cath insertion via real-time access in the right internal jugular vein. 3. Angiogram and interpretation. SURGEON: ANKUSH MADRIGAL ONCOLOGY CONSULTANT: None. ANESTHESIA: Moderate Sedation TISSUE REMOVED OR ALTERED: Not applicable. COMPLICATIONS: None. ESTIMATED BLOOD LOSS: 5 mL. INTRAOPERATIVE FINDINGS: Of a satisfactory, fairly large right internal jugular vein, estimated to be about 1.5 cm in diameter. Satisfactory access. Easy egress of blood and ingress of heparinized solution through is the single lumen. Angiogram demonstrates smooth flow of contrast through the catheter, lower superior vena cava, right atrium ventricle and pulmonary outflow tract. Final x-ray shows the catheter in good position no obvious complication. PROCEDURE: After obtaining informed consent, the patient was taken to the [employer] and positioned supine. The [right] neck and chest were prepared with chlorhexidine and draped out with sterile linen. After the " universal timeout", in which it was verified that the patient continued to receive antibiotic, the procedure commenced. A steriley sheathed ultrasound probe was used to evaluate the [right] internal jugular vein. Local anesthesia was infiltrated adjacent to the probe. Access into the [right] internal jugular vein was obtained using a micropuncture needle, followed by micropuncture wire and then a micropuncture catheter. This was followed by introduction of a 0.035 guidewire the tip of which was placed down into the inferior vena cava . The port sites was marked , locally anesthetized and incision made. Dissection now proceeded to the deep subcutaneous subcutaneous tissues so that a pocket for the port was made. Meticulous hemostasis was secured and the catheter was tunneled between the 2 in cisions. Proximally, the catheter was now positioned using a peel-away sheath. Distally the catheter was tailored to an appropriate length and then mated to the port using the contained fixating device. The port was now placed in the pocket and the catheter optimally positioned. The port was accessed with a Villegas needle and an angiogram done under digital subtraction. The findings as dictated. With adequate and satisfactory positioning, both lumens of the chamber were irrigated with heparinized solution. The wounds were now closed using interrupted 3-0 PDS to the subcutaneous tissues and a continuous subcuticular suture of 4-0 Monocryl to the skin. These are reinforced with Steri-Strips over benzoin and then dressings applied. Time: 0.7 minute. Dose: 6.07 m Gy Contrast: 5 Mls. Isovue 300. Copies of the dictated operative report for Dr. Ankush Diana MD.
--- NOTE | 2018-11-04 12:20 | RADIOLOGY REPORT (SQ) ---
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 FLUOROSCOPY TIME: 0.7 minutes 10 images saved to PACS. TECHNIQUE: Intra-operative images acquired during surgical procedure to evaluate progress. NUMBER OF IMAGES: 10 images saved to PACs LIMITATIONS: None. FINDINGS: Intraoperative fluoroscopic images obtained to evaluate surgical progress. Final image de monstrates right-sided internal jugular based chest port with catheter tip at cavoatrial junction. P lease see operative report for detailed description of procedure. IMPRESSION: IMAGE(S) OBTAINED DURING PROCEDURE. COMMENT: Quality ID [id number]: Final reports for procedures using fluoroscopy that document radiation exp osure indices, or exposure time and number of fluorographic images (if radiation exposure indices are not available) Please consult full operative report of the attending physician for description of the procedure. TECHNICAL DOCUMENTATION: JOB ID: [id number] [employer]- All Rights Reserved Reading location - IP/workstation name: [email or web address]
[2018-11-04 14:10] VITALS: BP 119/70
== END 2018-11-04 10:35 | disposition home or self-care (01) ==
LOC: CCL 05:48
PROVIDERS: ATTEND Surgery
DX: C4A.30 Merkel cell carcinoma of unspecified part of face (principal); C4A.4 Merkel cell carcinoma of scalp and neck; E11.9 Type 2 diabetes mellitus without complications; I10 Essential (primary) hypertension; I48.91 Unspecified atrial fibrillation; M79.2 Neuralgia and neuritis, unspecified; H91.90 Unspecified hearing loss, unspecified ear; Z88.8 Allergy status to other drugs, medicaments and biological substances; Z87.891 Personal history of nicotine dependence; Z79.84 Long term (current) use of oral hypoglycemic drugs; Z79.899 Other long term (current) drug therapy; Z01.818 Encounter for other preprocedural examination
CPT/HCPCS: 36415; 82962; 85027; 80048; 36561; 76937; 77001; C1752; C1788; Q9967; J2250; J3490 ×2; J0690; A9270 ×2; J3010; J1644

== ENCOUNTER → 2019-01-23 | Outpatient (CLI) | payer MEDICARE, OTHER ==
--- NOTE | 2019-01-23 09:17 | RADIOLOGY REPORT (SQ) ---
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 Images reviewed with lung, soft tissue and bone windows. Reconstructed coronal and sagittal MPR and MIP images reviewed. All images stored on PACS. All CT scanners at this facility use dose modulation, iterative reconstruction, and/or weight based d osing when appropriate to reduce radiation dose to as low as reasonably achievable (ALARA). [facility]: Dose Right [facility]: CareDose [facility]: Dose Right [facility]: Teradose 4D [facility]: [employer] CONTRAST TYPE AND DOSE: contrast/concentration: Isovue 350.00 mg/ml; Total Contrast Delivered: 80.0 ml; Total Saline Delivered: 47.0 ml RENAL FUNCTION: Creatinine 0.9 RADIATION DOSE: . LIMITATIONS: None. FINDINGS: LUNGS AND PLEURA: There is airspace disease in the left base new from prior PET. This cou ld represent atelectasis or pneumonia. HILAR AND MEDIASTINAL STRUCTURES: No identified masses or abnormal nodes. HEART AND VASCULAR STRUCTURES: No aneurysm or dissection. No central pulmonary emboli. No pericardi al effusion. HARDWARE: [place] is in place. UPPER ABDOMEN: No significant findings. Limited exam. THYROID AND OTHER SOFT TISSUES: Thyroid gland is unremarkable. There is a 11.5 mm lymph node posteri or to the left jugular vein best demonstrated on image 7 of series 3. This is significantly decrease d in size since prior PET. Smaller cervical nodes are noted. BONES: Degenerative changes only. OTHER: No other significant finding. IMPRESSION: 1. No evidence of metastatic disease in the chest. Small lymph nodes in the lower neck are demonstrated. 2. New left lower lobe infiltrate consistent with atelectasis or pneumonia when compared to prior PE T-CT. TECHNICAL DOCUMENTATION: JOB ID: [id number] Quality ID # [id number]: Final reports with documentation of one or more dose reduction techniques (e.g., Au tomated exposure control, adjustment of the mA and/or kV according to patient size, use of iterative reconstruction technique) 2010 [employer]- All Rights Reserved Reading location - IP/workstation name: [email or web address]
--- NOTE | 2019-01-23 09:21 | RADIOLOGY REPORT (SQ) ---
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 Reconstructed coronal and sagittal MPR images reviewed. All images stored on PACS. All CT scanners at this facility use dose modulation, iterative reconstruction, and/or weight based d osing when appropriate to reduce radiation dose to as low as reasonably achievable (ALARA). [facility]: Dose Right [facility]: CareDose [facility]: Dose Right [facility]: Teradose 4D [facility]: CloudCheckr CONTRAST TYPE AND DOSE: 80 mL Omnipaque 350- low osmolar. RENAL FUNCTION: Creatinine 0.9 RADIATION DOSE: . LIMITATIONS: Images through or foreign extra limited by artifact caused by dental prostheses. FINDINGS: SKULL BASE: Intact. MAJOR SALIVARY GLANDS: No solid or cystic masses. No inflammatory changes. LYMPHADENOPATHY: Small bilateral cervical lymph nodes are identified. The largest is measured at 13. 2 mm. This is significantly decreased in size from prior PET-CT. At that time the same node measure d 2.5 cm. Smaller 7-8 mm nodes are demonstrated bilaterally not significantly changed from prior PET -CT. MUCOSAL MASSES OR ASYMMETRY: No mucosal masses or asymmetry. LARYNX/CORDS: No abnormal findings. VASCULAR STRUCTURES: The major vessels are patent. LUNG APICES: Clear. BONES: Intact. THYROID: Normal size. No masses. PARANASAL SINUSES: There is ethmoid air cell disease. OTHER: No other significant finding. IMPRESSION: Small scattered cervical lymph nodes. The largest is measured 13.2 mm along the left ne urovascular bundle. This is significantly decreased from prior PET-CT. TECHNICAL DOCUMENTATION: JOB ID: [id number] Quality ID # [id number]: Final reports with documentation of one or more dose reduction techniques (e.g., Au tomated exposure control, adjustment of the mA and/or kV according to patient size, use of iterative reconstruction technique) 2010 [employer]- All Rights Reserved Reading location - IP/workstation name: [email or web address]
== END ==
LOC: RAD 08:04
PROVIDERS: ATTEND Physician Assistant Medical
DX: C4A.30 Merkel cell carcinoma of unspecified part of face (principal)
CPT/HCPCS: 70491; 71260; 82565

== ENCOUNTER → 2019-05-19 | Outpatient (CLI) | payer MEDICARE, OTHER ==
--- NOTE | 2019-05-19 09:46 | RADIOLOGY REPORT (SQ) ---
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 Images reviewed with lung, soft tissue and bone windows. Reconstructed coronal and sagittal MPR and MIP images reviewed. All images stored on PACS. All CT scanners at this facility use dose modulation, iterative reconstruction, and/or weight based d osing when appropriate to reduce radiation dose to as low as reasonably achievable (ALARA). [facility]: Dose Right [facility]: CareDose [facility]: Dose Right [facility]: Teradose 4D [facility]: Pro[employer]us CONTRAST TYPE AND DOSE: contrast/concentration: Isovue 350.00 mg/ml; Total Contrast Delivered: 80.0 ml; Total Saline Delivered: 55.0 ml RENAL FUNCTION: BUN 14, creatinine 0.9 RADIATION DOSE: . LIMITATIONS: None. FINDINGS: LUNGS AND PLEURA: No opacities, nodules, masses. No pneumothorax. No effusions. Previous ly described left lower lobe pneumonia has resolved. HILAR AND MEDIASTINAL STRUCTURES: Small mediastinal nodes remain. None are pathologic based on size criteria. HEART AND VASCULAR STRUCTURES: No aneurysm or dissection. No central pulmonary emboli. No pericardi al effusion. HARDWARE: [id number] is in place on the right. UPPER ABDOMEN: No significant findings. Limited exam. THYROID AND OTHER SOFT TISSUES: Thyroid gland is unremarkable. There are small bilateral axillary no court. BONES: No significant finding. OTHER: No other significant finding. IMPRESSION: No evidence of metastatic disease in the chest. Small nonspecific mediastinal and axill emili nodes. TECHNICAL DOCUMENTATION: JOB ID: [id number] Quality ID # 436: Final reports with documentation of one or more dose reduction techniques (e.g., Au tomated exposure control, adjustment of the mA and/or kV according to patient size, use of iterative reconstruction technique) 2010 [employer]- All Rights Reserved Reading location - IP/workstation name: [email or web address]
--- NOTE | 2019-05-19 10:07 | RADIOLOGY REPORT (SQ) ---
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 Reconstructed coronal and sagittal MPR images reviewed. All images stored on PACS. All CT scanners at this facility use dose modulation, iterative reconstruction, and/or weight based d osing when appropriate to reduce radiation dose to as low as reasonably achievable (ALARA). [facility]: Dose Right [facility]: CareDose [facility]: Dose Right [facility]: Teradose 4D [facility]: DataXu CONTRAST TYPE AND DOSE: 80 mL Omnipaque 350 RENAL FUNCTION: BUN 14, creatinine 0.9 RADIATION DOSE: . LIMITATIONS: None. FINDINGS: SKULL BASE: Intact. MAJOR SALIVARY GLANDS: No solid or cystic masses. No inflammatory changes. LYMPHADENOPATHY: Small cervical nodes are again identified. The largest measures 9.4 mm in diameter compared to 13.2 mm on prior study. MUCOSAL MASSES OR ASYMMETRY: No mucosal masses or asymmetry. LARYNX/CORDS: No abnormal findings. VASCULAR STRUCTURES: The major vessels are patent. LUNG APICES: Clear. BONES: Intact. THYROID: Normal size. No masses. PARANASAL SINUSES: Clear. OTHER: No other significant finding. IMPRESSION: Persistent cervical adenopathy not significantly changed from prior study. Largest node previously measured 13.2 mm. It now measures 9.4 mm. This is best demonstrated on series 3, image 16. TECHNICAL DOCUMENTATION: JOB ID: [id number] Quality ID # 436: Final reports with documentation of one or more dose reduction techniques (e.g., Au tomated exposure control, adjustment of the mA and/or kV according to patient size, use of iterative reconstruction technique) 2010 [employer] All Rights Reserved Reading location - IP/workstation name: [email or web address]
== END ==
LOC: RAD 08:51
PROVIDERS: ATTEND Physician Assistant Medical
DX: C4A.30 Merkel cell carcinoma of unspecified part of face (principal)
CPT/HCPCS: 70491; 71260

== ENCOUNTER → 2019-10-06 | Outpatient (CLI) | payer MEDICARE, OTHER ==
--- NOTE | 2019-10-06 09:21 | RADIOLOGY REPORT (SQ) ---
EXAM DESCRIPTION: CT CHEST WITH; CT SOFT TISSUE NECK WITH COMPLETED DATE/TIME: 10/06/2019 7:16 am; 10/06/2019 7:15 am REASON FOR STUDY: LINO CELL CARCINOMA (C4A.30) C4A.30 LINO CELL CARCINOMA OF UNSPECIFIED PART O F FACE. Currently receiving chemotherapy. COMPARISON: None. CT soft tissue neck and CT chest 05/19/2019. CT soft tissue neck and CT chest 01/23/2019. PET CT, /07/2010. TECHNIQUE: Post IV contrasted scanning from skull base through diaphragm to include the soft tissues of the neck and lungs with review of bone, soft tissue and lung windows. Reconstructed coronal and sagittal MPR images reviewed. All images stored on PACS. All CT scanners at this facility use dose modulation, iterative reconstruction, and/or weight based d osing when appropriate to reduce radiation dose to as low as reasonably achievable (ALARA). [facility]: Dose Right [facility]: CareDose [facility]: Dose Right [facility]: Teradose 4D [facility]: [employer] CONTRAST TYPE AND DOSE: contrast/concentration: Isovue 350.00 mg/ml; Total Contrast Delivered: 80.0 ml; Total Saline Delivered: 55.0 ml RENAL FUNCTION: GFR > 60. RADIATION DOSE: 15.77 mgy, 18.11 mGy LIMITATIONS: None. FINDINGS: Soft tissue neck: SKULL BASE: Intact. MAJOR SALIVARY GLANDS: Asymmetric atrophy of the left parotid gland probably postradiation change, si milar in appearance to previous examination. LYMPHADENOPATHY: There is a new necrotic lymph node in the right neck measuring 1.[address] to the [address] ernocleidomastoid muscle at the level of the hyoid bone (image 58). No left cervical adenopathy. Sm all right supraclavicular lymph nodes are stable. MUCOSAL MASSES OR ASYMMETRY: No mucosal masses or asymmetry. LARYNX/CORDS: No abnormal findings. VASCULAR STRUCTURES: Retropharyngeal course of the right internal carotid artery is noted. There is calcification at the bifurcation of the internal and external carotid arteries bilaterally. BONES: Postoperative changes of prior laminectomy and fusion at C1-C4, stable. No evidence of hardwa re fracture, loosening or subsidence. No suspicious bone lesions. Multilevel spondylosis and degene rative disc disease. THYROID: Normal size. No masses. PARANASAL SINUSES: Clear. Chest: LUNGS AND PLEURA: The trachea has normal caliber and appearance. No bronchial wall thickening or bro nchiectasis. There is a new tree-in-bud and ground-glass nodularity with a focal discrete nodular op acity in the left lower lobe measuring 1.8 cm (image 89). The right lung remains clear. No pleural effusion or pneumothorax. HILAR AND MEDIASTINAL STRUCTURES: Moderately prominent upper mediastinal lymph node adjacent to the r ight trachea measures 1.9 x 1.4 cm, slightly increased from previous of 1.3 x 1.2 cm. No other media stinal or hilar adenopathy. No mediastinal mass or fluid. HEART AND VASCULAR STRUCTURES: No aneurysm or dissection. No central pulmonary emboli. No pericardi al effusion. HARDWARE: A right MediPort catheter with tip in the mid SVC is unchanged. UPPER ABDOMEN: Nodular contour of the liver suggestive of underlying hepatic cirrhosis. Spleen has n ormal size. Postcholecystectomy. THYROID AND OTHER SOFT TISSUES: No masses. No adenopathy. BONES: Spondylosis and degenerative disc disease in the thoracic spine. No suspicious bone lesions. OTHER: No other significant finding. IMPRESSION: 1. New ground-glass and solid nodularity in the left lower lobe suspicious for pneumonia. A follow-u p CT of the chest in 3 months is recommended to confirm resolution of the more nodular component. 2. New enlarged and necrotic right cervical lymph node at level IIb. No left cervical adenopathy. S lightly increased size of an upper mediastinal lymph node. These are indeterminate. Attention on fo llow-up recommended. 3. Nodular contour of the liver suggestive of underlying hepatic cirrhosis. Clinical correlation is recommended. 4. Asymmetric atrophy of the left parotid gland likely postradiation change. 5. Postoperative changes of the cervical spine are stable. No evidence of hardware complication. TECHNICAL DOCUMENTATION: JOB ID: [id number] Quality ID # 436: Final reports with documentation of one or more dose reduction techniques (e.g., Au tomated exposure control, adjustment of the mA and/or kV according to patient size, use of iterative reconstruction technique) 2010 [employer]- All Rights Reserved COMPARISON: See above TECHNIQUE: See above CONTRAST TYPE AND DOSE: See above RENAL FUNCTION: See above Reading location - IP/workstation name: [email or web address]
== END ==
LOC: RAD 07:31
PROVIDERS: ATTEND Internal Medicine Hematology & Oncology
DX: C4A.30 Merkel cell carcinoma of unspecified part of face (principal)
CPT/HCPCS: 70491; 71260; 82565

== ENCOUNTER 2019-10-15 21:28 | Inpatient (IN) | payer MEDICARE, OTHER ==
--- NOTE | 2019-10-15 23:32 | EKG REPORT ---
SEVERITY:- ABNORMAL ECG - SINUS RHYTHM LAD, CONSIDER LEFT ANTERIOR FASCICULAR BLOCK : Confirmed by: Shey Connolly MD 15-Oct-2019 23:32:11
--- NOTE | 2019-10-16 03:01 | ER Document Report ---
ED General - General Chief Complaint: General Weakness Stated Complaint: WEAKNESS Time Seen by Provider: 10/16/19 01:50 Primary Care Provider: FERNANDO AYALA MD [Primary Care Provider] - Follow up as needed TRAVEL OUTSIDE OF THE [place] IN LAST 30 DAYS: No - HPI Notes: Mr. Gordon is a 79-year-old male type II diabetic with a chief complaint of generalized weakness of 3 days duration which is intermittent and is been much worse since about 330 this afternoon. Patient says he normally walks with a cane but since this afternoon he is felt that he did not have enough strength to stand without assistance. Family also said that he seemed to be mildly disoriented at one point if they notice his blood sugar was low in the mid 60s. He had eaten supper normally but continued not to feel well. Patient is on an oral agent for his diabetes. He denies any recent change in dosage. Patient has had a cough productive of yellow sputum and was started on Augmentin several days ago by primary care doctor. He denies dyspnea or chest pain. He denies hemoptysis. Patient says he has had some loose stools intermittently since he has been on antibiotic but has had only one stool today. No nausea vomiting. Patient has a longstanding ulceration of the plantar surface of his left foot and regularly seen at the wound care clinic about once a week. His addresses this for him and they note minimal amount of drainage. says she thinks that the swelling over the dorsum of his right foot is increased slightly and she also notes some redness to this area. Patient is a non-smoker. His only known allergy is atorvastatin. - Related Data Allergies/Adverse Reactions: atorvastatin calcium [From Lipitor] Allergy (Mild, Verified 01/23/16 20:33) Hives Past Medical History - General Information source: Patient, Relative - Social History Smoking Status: Former Smoker Family History: Reviewed & Not Pertinent Patient has suicidal ideation: No Patient has homicidal ideation: No - Past Medical History Cardiac Medical History: Reports: Hx Atrial Fibrillation, Hx Hypercholesterolemia Denies: Hx Congestive Heart Failure, Hx Coronary Artery Disease, Hx Heart Attack, Hx Hypertension, Hx Peripheral Vascular Disease, Hx Heart Murmur Pulmonary Medical History: Denies: Hx Asthma, Hx Bronchitis, Hx COPD, Hx Pneumonia, Hx Tuberculosis Neurological Medical History: Reports: Hx Cerebrovascular Accident. Denies: Hx Seizures, Hx Parkinson's Disease Endocrine Medical History: Reports: Hx Diabetes Mellitus Type 2. 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 Denies: Hx Appendectomy, Hx Bowel Surgery, Hx Colostomy, Hx Coronary Artery Bypass Graft, Hx Gastric Bypass Surgery, Hx Herniorrhaphy, Hx Open Heart Surgery, Hx Pacemaker, Hx Tonsillectomy - Immunizations Hx Diphtheria, Pertussis, Tetanus Vaccination: No Hx Pneumococcal Vaccination: 09/30/12 Review of Systems - Review of Systems Notes: Constitutional: Negative for fever. HENT: Negative for sore throat. Eyes: Negative for visual changes. Cardiovascular: Negative for chest pain. Respiratory: As per HPI. Gastrointestinal: As per HPI. Genitourinary: Negative for dysuria. Musculoskeletal: Negative for back pain. Skin: Negative for rash. Neurological: Negative for headaches, focal weakness or numbness. 10 point ROS negative except as marked above and in HPI. Physical Exam - Vital signs Vitals: Temp Resp BP Pulse Ox 97.7 F 16 119/59 L 99 10/15/19 21:38 10/15/19 21:38 10/15/19 21:38 10/15/19 21:38 - Notes Notes: GENERAL: Frail elderly man appearing in no acute distress. SKIN: Good turgor no rashes. HEAD: Normocephalic atraumatic. EYES: PERRLA. EOMI. Conjunctivae and sclerae clear. EARS: CANALS AND TMS CLEAR. NOSE: CLEAR. MOUTH: Moist mucosa. Edentulous. No stridor or edema. No drooling. NECK: Supple. No masses or thyromegaly. No adenopathy. Carotids 2+ without bruits. No JVD. BACK: Symmetrical without tenderness. CHEST: Respirations unlabored. Breath sounds clear and symmetrical. HEART: Regular rhythm. No murmur gallop or rub. ABDOMEN: Soft nontender without masses, organomegaly or rebound. Bowel sounds normally active. No bruits. GENITALIA: Deferred. EXTREMITIES: Chronic degenerative changes of inner phalangeal joints of both hands. 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 Patient has a 2.5 cm shallow ulceration over the plantar surface of the ball of the foot on the left with very minimal yellow drainage and overall the wound appears quite clean. Minimal redness with trace edema over left foot dorsal aspect. No calf tenderness. Cap refill less than 1.5 seconds. Dorsalis pedis and posterior tibial pulses 2+ and symmetrical. NEUROLOGICAL: GCS 15. Alert and oriented x3. Fluent speech. Cranial nerves II through XII intact. Sensorimotor and cerebellar normal. Normal tone. PSYCHIATRIC: Appropriate affect. Course - Vital Signs Vital signs: Temp Pulse Resp BP Pulse Ox 97.7 F 17 128/55 H 100 10/15/19 21:38 10/16/19 04:00 10/16/19 03:01 10/16/19 04:00 - Laboratory Result Diagrams: 10/16/19 03:15 10/16/19 03:15 Laboratory results interpreted by me: 10/15/19 10/15/19 10/16/19 21:35 22:28 03:15 RBC 3.44 L Hgb 11.2 L Hct 31.8 L Eos % (Auto) 11.8 H Absolute Eos (auto) 0.8 H Sodium Chloride Glucose POC Glucose 62 L 67 L Total Protein Albumin 10/16/19 10/16/19 03:15 03:23 RBC Hgb Hct Eos % (Auto) Absolute Eos (auto) Sodium 128.9 L Chloride 93 L Glucose 67 L POC Glucose 64 L Total Protein 5.7 L Albumin 2.9 L - EKG Interpretation by Me Additional EKG results interpreted by me: 10/16/19 03:06 Twelve-lead EKG from 10/15/2019 at 2149 hrs. reviewed contemporaneously by me shows normal sinus rhythm with rate of 61 and a left axis deviation with a QRS of -46 degrees. There are no acute ST or T wave changes. Discharge - Discharge Clinical Impression: Hypoglycemia, Hyponatremia Diabetic ulcer of left foot Qualifiers: Diabetic foot ulcer location: other Diabetes mellitus type: type 2 Non-pressure ulcer stage: with other severity Qualified Code(s): E11.621 - Type 2 diabetes mellitus with foot ulcer; L97.528 - Non-pressure chronic ulcer of other part of left foot with other specified severity Pneumonia Qualifiers: Pneumonia type: due to unspecified organism Condition: Fair Disposition: ADMITTED INPATIENT Admitting Provider: Elder (Hospitalist) Unit Admitted: Telemetry Referrals: FERNANDO AYALA MD [Primary Care Provider] - Follow up as needed
[2019-10-16 03:50] LABS: APPEARANCE,URINE CLEAR; BILIRUBIN,URINE NEGATIVE (NEGATIVE); COLOR,URINE YELLOW; GLUCOSE, URINE NEGATIVE (NEGATIVE); KETONES,URINE NEGATIVE (NEGATIVE); PROTEIN,URINE NEGATIVE (NEGATIVE); URINE SPECIFIC GRAVITY 1.015; UROBILINOGEN,URINE NEGATIVE mg/dL (<2.0)
[2019-10-16 03:56] LABS: ABSOLUTE MONOCYTES (AUTO) 0.5 10^3/uL (0.1-1.4); TOTAL CELLS COUNTED % (AUTO) 100 %; WHITE BLOOD COUNT 7.1 10^3/uL (4.0-10.5)
[2019-10-16 04:04] LABS: ABSOLUTE EOSINOPHILS # (AUTO) 0.8 10^3/uL (0.0-0.6); ABSOLUTE LYMPHOCYTES (AUTO) 1.4 10^3/uL (0.5-4.7); ABSOLUTE NEUT (AUTO) 4.3 10^3/uL (1.7-8.2); BASOPHILS % (AUTO) 0.7 % (0-2); EOSINOPHILS % (AUTO) 11.8 % (0-6); HEMATOCRIT 31.8 % (37.9-51.0); HEMOGLOBIN 11.2 g/dL (13.5-17.0); LYMPHOCYTES % (AUTO) 19.2 % (13-45); MEAN CORPUSCULAR HEMOGLOBIN 32.5 pg (27.0-33.4); MEAN CORPUSCULAR HGB CONC 35.2 g/dL (32.0-36.0); MEAN CORPUSCULAR VOLUME 92 fl (80-97); MONOCYTES % (AUTO) 7.3 % (3-13); PLATELET COUNT 234 10^3/uL (150-450); RED BLOOD COUNT 3.44 10^6/uL (4.35-5.55); RED CELL DISTRIBUTION WIDTH 13.1 % (11.5-14.0)
[2019-10-16 04:15] LABS: ALBUMIN 2.9 g/dL (3.5-5.0); ALKALINE PHOSPHATASE 83 U/L (38-126); ANION GAP 7 (5-19); ASPARTATE AMINO TRANSFERASE 26 U/L (17-59); BILIRUBIN,DIRECT 0.3 mg/dL (0.0-0.4); BILIRUBIN,TOTAL 0.6 mg/dL (0.2-1.3); BLOOD UREA NITROGEN 20 mg/dL (7-20); CALCIUM 8.4 mg/dL (8.4-10.2); CARBON DIOXIDE 29 mmol/L (22-30); CHLORIDE 93 mmol/L (98-107); POTASSIUM 4.5 mmol/L (3.6-5.0); TOTAL PROTEIN 5.7 g/dL (6.3-8.2)
[2019-10-16 04:19] LABS: GLUCOSE 67 mg/dL (75-110)
[2019-10-16] MEDS ORDERED: DEXTROSE 50%-WATER 25 GM/50 ML DISP.SYRIN IV ONE (05:07)
[2019-10-16] MEDS ORDERED: DEXTROSE 5%-NORMAL SALINE 1,000 ML IV ONE (05:08)
[2019-10-16] MEDS ORDERED: VANCOMYCIN HCL INJ 1000 MG VIAL IV ONE (05:12)
[2019-10-16] MEDS ORDERED: PIPERACILLIN/TAZOBACTAM 3.375 GM VIAL IV ONE (05:12)
[2019-10-16] MEDS ORDERED: GLUCAGON,HUMAN RECOMB 1 MG INJ IM PRN (05:17)
[2019-10-16] MEDS ORDERED: IPRATROPIUM/ALBUTEROL 0.5-2.5 MG/3 ML AMPUL NEB PRN (05:17)
[2019-10-16] MEDS ORDERED: MAGNESIUM HYDROXIDE SUSP 30 ML UDCUP PO PRN (05:17)
[2019-10-16] MEDS ORDERED: DEXTROSE 50%-WATER 25 GM/50 ML DISP.SYRIN IV PRN ×2 (05:17)
[2019-10-16] MEDS ORDERED: ACETAMINOPHEN 325 MG TABLET PO PRN (05:17)
[2019-10-16] MEDS ORDERED: DEXTROSE 40% GEL 15 GM TUBE PO PRN ×2 (05:17)
[2019-10-16] MEDS ORDERED: MAG HYDROX/AL HYDROX/SIMETH SUSP 30 ML UDCUP PO PRN (05:17)
[2019-10-16] MEDS ORDERED: VANCOMYCIN HCL 0 MG in DEXTROSE 5%-WATER 250 ML IV NR (05:30)
--- NOTE | 2019-10-16 05:55 | RADIOLOGY REPORT (SQ) ---
Chest single view on 10/16/2019 at 4:46 AM CLINICAL INDICATION: Cough COMPARISON: 04/15/2017 FINDINGS: Right IJ Port-A-Cath tip is in the SVC. Vascular calcification is noted in the aorta. The lungs are clear. Cardiac, hilar and mediastinal contours are within normal limits. Pulmonary vascularity is within normal limits. IMPRESSION: No acute disease.
--- NOTE | 2019-10-16 06:06 | PDOC H&P ---
History of Present Illness Admission Date/PCP: 10/16/19 05:30 FERNANDO AYALA MD Patient complains of: Left foot ulcer History of Present Illness: HAYDEE KHAN is a 79 year old male with a past medical history of atrial fibrillation on Pradaxa, diabetes, diabetic neuropathy, diabetic foot ulcer requiring digit amputation on the right foot. He presents with 3 or 4 weeks of draining plantar surface ulcer on the left for which she has seen Dr. Quintero but ulcer remains. Today he became disoriented, weak and unable to ambulate with a cane. This prompting evaluation the emergency room where he is found to have hypoglycemia in the 60s. He is started on dextrose, vancomycin, Zosyn and referred to the hospitalist for admission. He denies recent antibiotic use and is otherwise felt well. 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 Denies: Leukemia GI Medical History: Denies: Crohn's Disease, Gastroesophageal Reflux Disease, Hepatitis, Hiatal Hernia Musculoskeltal Medical History: Reports: Other - Diabetic foot ulcer Denies: Arthritis, Fibromyalgia Psychiatric Medical History: Denies: Dementia Hematology: Denies: Anemia, Hemophilia, Sickle Cell Disease Infectious Medical History: Denies: HIV Past Surgical History Past Surgical History: Reports: Cholecystectomy, Orthopedic Surgery - RLE Denies: Appendectomy, Colostomy, Coronary Artery Bypass Graft, Gastric Bypass Surgery, Herniorrhaphy, Pacemaker, Tonsillectomy Social History Information Source: Patient Lives with: Family Smoking Status: Former Smoker Frequency of Alcohol Use: Occasional Hx Recreational Drug Use: No Drugs: None Hx Prescription Drug Abuse: No Family History Family History: DM, Hypertension Parental Family History Reviewed: Yes Children Family History Reviewed: Yes Sibling(s) Family History Reviewed.: Yes Medication/Allergy Home Medications: Dabigatran Etexilate Mesylate [Pradaxa 150 mg Capsule] 150 mg PO Q12 04/16/14 Ezetimibe [Zetia 10 mg Tablet] 10 mg PO DAILY 04/16/14 Gabapentin [Neurontin 400 mg Capsule] 400 mg PO TID 04/16/14 Glipizide [Glipizide Xl] 5 mg PO DAILY 04/16/14 Lisinopril [Prinivil 40 mg Tablet] 40 mg PO DAILY 04/16/14 Multivitamin [Tab-A-Liseth] 1 each PO DAILY 04/16/14 Metoprolol Succinate [Toprol Xl 50 mg Tab.sr] 100 mg PO DAILY 04/22/14 Acetaminophen 2 tab PO QID 08/10/16 Ketotifen Fumarate [Refresh] 5 ml OP QID PRN 08/10/16 Sitagliptin Phosphate [Januvia 50 mg Tablet] 100 mg PO DAILY 08/10/16 Allergies/Adverse Reactions: atorvastatin calcium [From Lipitor] Allergy (Mild, Verified 01/23/16 20:33) Hives Review of Systems Constitutional: ABSENT: chills, fever(s), headache(s), weight gain, weight loss Eyes: ABSENT: visual disturbances Ears: ABSENT: hearing changes Cardiovascular: ABSENT: chest pain, dyspnea on exertion, edema, orthropnea, palpitations Respiratory: ABSENT: cough, hemoptysis Gastrointestinal: ABSENT: abdominal pain, constipation, diarrhea, hematemesis, hematochezia, nausea, vomiting Genitourinary: ABSENT: dysuria, hematuria Musculoskeletal: ABSENT: joint swelling Integumentary: ABSENT: rash, wounds Neurological: ABSENT: abnormal gait, abnormal speech, confusion, dizziness, focal weakness, syncope Psychiatric: ABSENT: anxiety, depression, homidical ideation, suicidal ideation Endocrine: ABSENT: cold intolerance, heat intolerance, polydipsia, polyuria Hematologic/Lymphatic: ABSENT: easy bleeding, easy bruising Physical Exam Vital Signs: Temp Pulse Resp BP Pulse Ox 97.7 F 17 128/55 H 100 10/15/19 21:38 10/16/19 04:00 10/16/19 03:01 10/16/19 04:00 Intake & Output 10/14/19 10/15/19 10/16/19 11:59 11:59 11:59 Weight 91.7 kg General appearance: PRESENT: no acute distress, well-developed, well-nourished Head exam: PRESENT: atraumatic, normocephalic Eye exam: PRESENT: conjunctiva pink, EOMI, PERRLA. ABSENT: scleral icterus Ear exam: PRESENT: normal external ear exam Mouth exam: PRESENT: moist, tongue midline Neck exam: ABSENT: carotid bruit, JVD, lymphadenopathy, thyromegaly Respiratory exam: PRESENT: clear to auscultation jamila. ABSENT: rales, rhonchi, wheezes Cardiovascular exam: PRESENT: RRR. ABSENT: diastolic murmur, rubs, systolic murmur Pulses: PRESENT: normal dorsalis pedis pul Vascular exam: PRESENT: normal capillary refill GI/Abdominal exam: PRESENT: normal bowel sounds, soft. ABSENT: distended, guarding, mass, organolmegaly, rebound, tenderness Rectal exam: PRESENT: deferred Extremities exam: PRESENT: full ROM, pedal edema, +1 edema, other - 2.5 cm ulcer with serous drainage of the left plantar surface.. ABSENT: calf tenderness, clubbing Neurological exam: PRESENT: alert, awake, oriented to person, oriented to place, oriented to time, oriented to situation, CN II-XII grossly intact. ABSENT: motor sensory deficit Psychiatric exam: PRESENT: appropriate affect, normal mood. ABSENT: homicidal ideation, suicidal ideation Skin exam: PRESENT: dry, warm, other - 2.5 cm ulcer with serous drainage of the left plantar surface.. ABSENT: cyanosis, rash Results Laboratory Results: 10/16/19 03:15 10/16/19 03:15 10/16/19 10/16/19 10/16/19 03:15 03:15 03:15 WBC 7.1 RBC 3.44 L Hgb 11.2 L Hct 31.8 L MCV 92 MCH 32.5 MCHC 35.2 RDW 13.1 Plt Count 234 Seg Neutrophils % 61.0 Sodium 128.9 L Potassium 4.5 Chloride 93 L Carbon Dioxide 29 Anion Gap 7 BUN 20 Creatinine 0.85 Est GFR ( Amer) > 60 Glucose 67 L Lactic Acid 1.3 Calcium 8.4 Total Bilirubin 0.6 AST 26 Alkaline Phosphatase 83 Total Protein 5.7 L Albumin 2.9 L Urine Color Urine Appearance Urine pH Ur Specific [place] Urine Protein Urine Glucose (UA) Urine Ketones Urine Blood Urine RBC (Auto) 10/16/19 03:15 WBC RBC Hgb Hct MCV MCH MCHC RDW Plt Count Seg Neutrophils % Sodium Potassium Chloride Carbon Dioxide Anion Gap BUN Creatinine Est GFR ( Amer) Glucose Lactic Acid Calcium Total Bilirubin AST Alkaline Phosphatase Total Protein Albumin Urine Color YELLOW Urine Appearance CLEAR Urine pH 5.0 Ur Specific [place] 1.015 Urine Protein NEGATIVE Urine Glucose (UA) NEGATIVE Urine Ketones NEGATIVE Urine Blood NEGATIVE Urine RBC (Auto) 0 10/16/19 03:15 Troponin I < 0.012 Impressions: Chest X-Ray 10/16/19 02:54 IMPRESSION: No acute disease. Assessment and Plan - Diagnosis (1) Diabetic ulcer of left foot Qualifiers: Diabetic foot ulcer location: other Diabetes mellitus type: type 2 Non- pressure ulcer stage: with other severity Qualified Code(s): E11.621 - Type 2 diabetes mellitus with foot ulcer; L97.528 - Non-pressure chronic ulcer of other part of left foot with other specified severity Is this a current diagnosis for this admission?: Yes Plan: Empiric antibiotics vancomycin and cefepime. Follow-up surgical consult, wound culture and CBC (2) Hypoglycemia Is this a current diagnosis for this admission?: Yes Plan: Secondary to #1, IV dextrose, hold oral p.o. diabetic medications for Humalog sliding scale as needed (3) Hyponatremia Is this a current diagnosis for this admission?: Yes Plan: Near patient's baseline, appears prerenal, trial normal saline. Follow-up chemistry - Time Time Spent with patient: 25-34 minutes - Inpatient Certification Medical Necessity: Need Close Monitoring Due to Risk of Patient Decompensation
--- NOTE | 2019-10-16 06:10 | RADIOLOGY REPORT (SQ) ---
EXAM DESCRIPTION: XR FOOT 3 OR MORE VIEWS COMPLETED DATE/TME: 10/16/2019 02:53 CLINICAL HISTORY: 79 years Male, cellulitis COMPARISON: March 15, 2017. Findings: Tri pin fixation of the left first metatarsophalangeal joint. Second partial Tri pin at the distal left first metatarsus. Deformity/hypoplasia of the left fourth and fifth toes includes chronic erosion. Bony demineralization. Mild deformity of the left second distal metatarsal diametaphysis and left second and third metatarsal heads may indicate chronic osteonecrosis. 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 Partial fusion and deformity of the left second and third proximal interphalangeal joints. Consider MRI surveillance. Swelling. Atherosclerotic vascular disease. Bones, joints, and soft tissues of the LEFT XR FOOT 3 VIEWS appear otherwise unremarkable. IMPRESSION: Swelling/cellulitis of the left foot. Bony demineralization with interval worsening. Else, multifocal deformities of the left forefoot without suspicious interval changes relative to prior radiographs from February 2017. Consider MRI surveillance.
--- NOTE | 2019-10-16 06:40 | PDOC CONSULTATION ---
Consultation Consult Date: 10/16/19 Provider Consulted: GERONIMO ALVES Consult reason:: Left foot plantar ulcer History of Present Illness Admission Date/PCP: 10/16/19 05:30 FERNANDO AYALA MD History of Present Illness: HAYDEE KHAN is a 79 year old male, with type 2 diabetes, atrial fibrillat ion on Pradaxa, s/p recent cervical spine surgery for trauma, who presents to the emergency room with a chronic draining left foot plantar ulcer. According to the patient, he has been seen by a local dynamometer repairer because of the ulcer. However, yesterday evening the patient was unable to stand on his left foot and had difficulty ambulating. He was brought to the emergency room by his with the above complaint. No fever, chills, or systemic symptoms. 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 Denies: Leukemia GI Medical History: Denies: Crohn's Disease, Gastroesophageal Reflux Disease, Hepatitis, Hiatal Hernia Musculoskeltal Medical History: Reports: Other - Diabetic foot ulcer Denies: Arthritis, Fibromyalgia Psychiatric Medical History: Denies: Dementia Hematology: Denies: Anemia, Hemophilia, Sickle Cell Disease Infectious Medical History: Denies: HIV Past Surgical History Past Surgical History: Reports: Cholecystectomy, Orthopedic Surgery - RLE Denies: Appendectomy, Colostomy, Coronary Artery Bypass Graft, Gastric Bypass Surgery, Herniorrhaphy, Pacemaker, Tonsillectomy Social History Lives with: Family Smoking Status: Former Smoker Frequency of Alcohol Use: Occasional Hx Recreational Drug Use: No Drugs: None Hx Prescription Drug Abuse: No Family History Family History: DM, Hypertension Parental Family History Reviewed: No Children Family History Reviewed: No Sibling(s) Family History Reviewed.: No Medication/Allergy Home Medications: Dabigatran Etexilate Mesylate [Pradaxa 150 mg Capsule] 150 mg PO Q12 04/16/14 Ezetimibe [Zetia 10 mg Tablet] 10 mg PO DAILY 04/16/14 Gabapentin [Neurontin 400 mg Capsule] 400 mg PO TID 04/16/14 Glipizide [Glipizide Xl] 5 mg PO DAILY 04/16/14 Lisinopril [Prinivil 40 mg Tablet] 40 mg PO DAILY 04/16/14 Multivitamin [Tab-A-Liseth] 1 each PO DAILY 04/16/14 Metoprolol Succinate [Toprol Xl 50 mg Tab.sr] 100 mg PO DAILY 04/22/14 Acetaminophen 2 tab PO QID 08/10/16 Ketotifen Fumarate [Refresh] 5 ml OP QID PRN 08/10/16 Sitagliptin Phosphate [Januvia 50 mg Tablet] 100 mg PO DAILY 08/10/16 Allergies/Adverse Reactions: atorvastatin calcium [From Lipitor] Allergy (Mild, Verified 01/23/16 20:33) Hives Physical Exam Vital Signs: Temp Pulse Resp BP Pulse Ox 97.7 F 19 131/59 H 98 10/16/19 06:09 10/16/19 06:09 10/16/19 06:09 10/16/19 06:09 Intake & Output 10/14/19 10/15/19 10/16/19 06:59 06:59 06:59 Weight 91.7 kg General appearance: PRESENT: no acute distress, cooperative, thin Head exam: PRESENT: atraumatic Eye exam: PRESENT: EOMI Mouth exam: PRESENT: dry mucosa, neck supple Teeth exam: PRESENT: edentulous Neck exam: PRESENT: other - Decreased range of motion Respiratory exam: PRESENT: clear to auscultation jamila Cardiovascular exam: PRESENT: irregular rhythm Pulses: PRESENT: other - Foot = palpable dorsalis pedis, nonpalpable posterior tibialis GI/Abdominal exam: PRESENT: soft Rectal exam: PRESENT: deferred Extremities exam: PRESENT: full ROM, +1 edema - Left foot, other - Bilateral foot deformity; left foot = presence of plantar surface in the forefoot with a small amount of drainage, no odor, warm, mild erythema Neurological exam: PRESENT: alert, awake, CN II-XII grossly intact Skin exam: PRESENT: warm Results Laboratory Results: 10/16/19 03:15 10/16/19 03:15 10/16/19 10/16/19 10/16/19 03:15 03:15 03:15 WBC 7.1 RBC 3.44 L Hgb 11.2 L Hct 31.8 L MCV 92 MCH 32.5 MCHC 35.2 RDW 13.1 Plt Count 234 Seg Neutrophils % 61.0 Sodium 128.9 L Potassium 4.5 Chloride 93 L Carbon Dioxide 29 Anion Gap 7 BUN 20 Creatinine 0.85 Est GFR ( Amer) > 60 Glucose 67 L Lactic Acid 1.3 Calcium 8.4 Total Bilirubin 0.6 AST 26 Alkaline Phosphatase 83 Total Protein 5.7 L Albumin 2.9 L Urine Color Urine Appearance Urine pH Ur Specific [place] Urine Protein Urine Glucose (UA) Urine Ketones Urine Blood Urine RBC (Auto) 10/16/19 03:15 WBC RBC Hgb Hct MCV MCH MCHC RDW Plt Count Seg Neutrophils % Sodium Potassium Chloride Carbon Dioxide Anion Gap BUN Creatinine Est GFR ( Amer) Glucose Lactic Acid Calcium Total Bilirubin AST Alkaline Phosphatase Total Protein Albumin Urine Color YELLOW Urine Appearance CLEAR Urine pH 5.0 Ur Specific [place] 1.015 Urine Protein NEGATIVE Urine Glucose (UA) NEGATIVE Urine Ketones NEGATIVE Urine Blood NEGATIVE Urine RBC (Auto) 0 10/16/19 03:15 Troponin I < 0.012 Impressions: Foot X-Ray 10/16/19 02:53 IMPRESSION: Swelling/cellulitis of the left foot. Bony demineralization with interval worsening. Else, multifocal deformities of the left forefoot without suspicious interval changes relative to prior radiographs from February 2017. Consider MRI surveillance. Chest X-Ray 10/16/19 02:54 IMPRESSION: No acute disease. Assessment & Plan - Diagnosis (1) Diabetic ulcer of left foot Qualifiers: Diabetic foot ulcer location: other Diabetes mellitus type: type 2 Non-pressure ulcer stage: with other severity Qualified Code(s): E11.621 - Type 2 diabetes mellitus with foot ulcer; L97.528 - Non-pressure chronic ulcer of other part of left foot with other specified severity Is this a current diagnosis for this admission?: Yes (2) Cellulitis of left foot Is this a current diagnosis for this admission?: Yes (3) Type 2 diabetes mellitus with diabetic neuropathy Is this a current diagnosis for this admission?: Yes - Plan Summary Plan Summary: Assessment: Left foot plantar ulcer, chronic, draining Cellulitis left foot Palpable dorsalis pedis left foot Type 2 diabetes Atrial fibrillation on Pradaxa Plan: Admission by hospitalist IV antibiotics broad-spectrum as per hospitalist service Schedule MRI of the left foot with IV contrast to rule out osteomyelitis today Hold Pradaxa
[2019-10-16] MEDS ORDERED: INFLUENZA QUAD (6MOS+) 2019-20 VAC 0.5 ML SYR IM ONE (07:57)
[2019-10-16] MEDS: IPRATROPIUM/ALBUTEROL 0.5-2.5 MG/3 ML AMPUL NEB SCH ×2 (08:28→20:32)
[2019-10-16] MEDS ORDERED: DABIGATRAN ETEXILATE 150 MG CAPSULE PO SCH (10:00)
--- NOTE | 2019-10-16 11:19 | PDOC PROGRESS REPORT ---
Subjective Progress Note for:: 10/16/19 Subjective:: feels ok Reason For Visit: DM FOOT HYPOGLYCEMIA HYPONATREMIA Physical Exam Vital Signs: Temp Pulse Resp BP Pulse Ox 97.5 F 86 16 163/63 H 99 10/16/19 06:58 10/16/19 08:29 10/16/19 08:29 10/16/19 06:58 10/16/19 08:29 Intake & Output 10/15/19 10/16/19 10/17/19 06:59 06:59 06:59 Weight 88.3 kg General appearance: PRESENT: no acute distress Head exam: PRESENT: normocephalic Eye exam: PRESENT: EOMI Ear exam: PRESENT: normal external ear exam Mouth exam: PRESENT: moist Neck exam: PRESENT: full ROM Respiratory exam: PRESENT: clear to auscultation jamila Cardiovascular exam: PRESENT: RRR Pulses: PRESENT: normal radial pulses, normal femoral pulses, +2 pedal pulses bilateral Breast: PRESENT: Normal GI/Abdominal exam: PRESENT: soft Extremities exam: PRESENT: full ROM, other - left plantar ulcer over 1st metatarsal, clean base, no drainage Neurological exam: PRESENT: alert Psychiatric exam: PRESENT: appropriate affect Skin exam: PRESENT: dry Results Laboratory Results: 10/16/19 03:15 10/16/19 03:15 10/16/19 10/16/19 10/16/19 03:15 03:15 03:15 WBC 7.1 RBC 3.44 L Hgb 11.2 L Hct 31.8 L MCV 92 MCH 32.5 MCHC 35.2 RDW 13.1 Plt Count 234 Seg Neutrophils % 61.0 Sodium 128.9 L Potassium 4.5 Chloride 93 L Carbon Dioxide 29 Anion Gap 7 BUN 20 Creatinine 0.85 Est GFR ( Amer) > 60 Glucose 67 L Lactic Acid 1.3 Calcium 8.4 Total Bilirubin 0.6 AST 26 Alkaline Phosphatase 83 Total Protein 5.7 L Albumin 2.9 L Urine Color Urine Appearance Urine pH Ur Specific [place] Urine Protein Urine Glucose (UA) Urine Ketones Urine Blood Urine RBC (Auto) 10/16/19 03:15 WBC RBC Hgb Hct MCV MCH MCHC RDW Plt Count Seg Neutrophils % Sodium Potassium Chloride Carbon Dioxide Anion Gap BUN Creatinine Est GFR ( Amer) Glucose Lactic Acid Calcium Total Bilirubin AST Alkaline Phosphatase Total Protein Albumin Urine Color YELLOW Urine Appearance CLEAR Urine pH 5.0 Ur Specific [place] 1.015 Urine Protein NEGATIVE Urine Glucose (UA) NEGATIVE Urine Ketones NEGATIVE Urine Blood NEGATIVE Urine RBC (Auto) 0 10/16/19 03:15 Troponin I < 0.012 Impressions: Foot X-Ray 10/16/19 02:53 IMPRESSION: Swelling/cellulitis of the left foot. Bony demineralization with interval worsening. Else, multifocal deformities of the left forefoot without suspicious interval changes relative to prior radiographs from February 2017. Consider MRI surveillance. Chest X-Ray 10/16/19 02:54 IMPRESSION: No acute disease. Assessment & Plan - Time Time Spent with patient: 25-34 minutes - Plan Summary Plan Summary: plantar ulcer left foot, [place] foot mri today.
--- NOTE | 2019-10-16 16:30 | RADIOLOGY REPORT (SQ) ---
EXAM DESCRIPTION: MRI LT LOWER EXTREMITY WITHOUT COMPLETED DATE/TIME: 10/16/2019 1:08 pm REASON FOR STUDY: Chronic draining plantar ulcer, rule out osteomyel COMPARISON: 05/09/2016 TECHNIQUE: Multiplanar imaging of the left forefoot To include fat and fluid sensitive sequences. LIMITATIONS: Motion. Metal artifact. FINDINGS: BONE MARROW: Decreased T1 and increased T2 signal distal 3rd phalanx series 5, image 14, s eries 4 and 6, image 18. Prior amputations 4th and 5th phalanges. Fusion 1st metatarsophalangeal golden int. SOFT TISSUES: No abscess. OTHER: No other significant finding. IMPRESSION: Osteomyelitis distal 3rd phalanx. TECHNICAL DOCUMENTATION: JOB ID: [id number] [employer]- All Rights Reserved Reading location - IP/workstation name: [email or web address]
--- NOTE | 2019-10-16 18:21 | Progress Note ---
Provider Note Provider Note: The MRI scan completed early this morning has been read now by the radiologist. Per the radiologist there is some osteomyelitis in the distal third phalanx of the left toe. Plantar ulcer appears to be clean and there is no evidence of osteomyelitis underneath that of the metatarsal head. Therefore I will make the patient n.p.o. after midnight and consider possible ray amputation with some debridement of the plantar ulcer tomorrow.
[2019-10-16] MEDS: DOCUSATE SODIUM 100 MG CAPSULE PO SCH ×2 (18:44→18:53)
[2019-10-16] MEDS: GABAPENTIN 400 MG CAPSULE PO SCH ×2 (18:45→18:49)
[2019-10-16] MEDS: METOPROLOL SUCCINATE 50 MG TAB.SR.24H PO SCH (18:45)
[2019-10-16] MEDS: EZETIMIBE 10 MG TABLET PO SCH (18:45)
[2019-10-16] MEDS: CEFEPIME 1 GM/D5W RTU 1 GM/50 ML RTUPB IV SCH ×2 (18:48→22:32)
[2019-10-16] MEDS: VANCOMYCIN HCL 1,250 MG in DEXTROSE 5%-WATER 250 ML IV SCH (19:00)
[2019-10-17] MEDS ORDERED: VANCOMYCIN HCL INJ 1000 MG VIAL ONE (05:07)
[2019-10-17] MEDS ORDERED: VANCOMYCIN HCL INJ 500 MG VIAL ONE (05:07)
[2019-10-17] MEDS: VANCOMYCIN HCL 1,250 MG in DEXTROSE 5%-WATER 250 ML IV SCH ×2 (05:16→18:23)
[2019-10-17 05:59] LABS: ABSOLUTE BASOPHILS # (AUTO) 0.1 10^3/uL (0.0-0.2); ABSOLUTE EOSINOPHILS # (AUTO) 0.7 10^3/uL (0.0-0.6); ABSOLUTE LYMPHOCYTES (AUTO) 1.4 10^3/uL (0.5-4.7); ABSOLUTE MONOCYTES (AUTO) 0.5 10^3/uL (0.1-1.4); BASOPHILS % (AUTO) 0.8 % (0-2); EOSINOPHILS % (AUTO) 10.1 % (0-6); MEAN CORPUSCULAR HGB CONC 35.8 g/dL (32.0-36.0); MEAN CORPUSCULAR VOLUME 92 fl (80-97); MONOCYTES % (AUTO) 8.1 % (3-13); PLATELET COUNT 205 10^3/uL (150-450); RED BLOOD COUNT 3.04 10^6/uL (4.35-5.55); RED CELL DISTRIBUTION WIDTH 12.5 % (11.5-14.0); TOTAL CELLS COUNTED % (AUTO) 100 %; WHITE BLOOD COUNT 6.6 10^3/uL (4.0-10.5)
[2019-10-17 06:18] LABS: ANION GAP 9 (5-19); BLOOD UREA NITROGEN 15 mg/dL (7-20); CALCIUM 7.9 mg/dL (8.4-10.2); CARBON DIOXIDE 23 mmol/L (22-30); CHLORIDE 93 mmol/L (98-107); GLUCOSE 74 mg/dL (75-110); POTASSIUM 4.3 mmol/L (3.6-5.0)
[2019-10-17] MEDS: IPRATROPIUM/ALBUTEROL 0.5-2.5 MG/3 ML AMPUL NEB SCH ×2 (08:39→20:10)
[2019-10-17] MEDS: NORMAL SALINE 1000 ML 1,000 ML IV PRN ×2 (10:21→21:51)
[2019-10-17] MEDS: CEFEPIME 1 GM/D5W RTU 1 GM/50 ML RTUPB IV SCH ×2 (10:21→21:51)
--- NOTE | 2019-10-17 12:55 | PDOC PROGRESS REPORT ---
Subjective Progress Note for:: 10/17/19 Subjective:: comfortable Reason For Visit: DM FOOT HYPOGLYCEMIA HYPONATREMIA Physical Exam Vital Signs: Temp Pulse Resp BP Pulse Ox 98.1 F 69 18 147/52 H 99 10/17/19 11:53 10/17/19 11:53 10/17/19 11:53 10/17/19 11:53 10/17/19 11:53 Intake & Output 10/16/19 10/17/19 10/18/19 06:59 06:59 06:59 Intake Total 1340 250 Output Total 650 Balance 690 250 Weight 88.3 kg 89.7 kg General appearance: PRESENT: no acute distress Extremities exam: PRESENT: other - Left foot = presence of ulceration distal phalanx third toe; deep ulceration plantar surface of the forefoot Results Laboratory Results: 10/17/19 05:01 10/17/19 05:01 10/16/19 10/17/19 10/17/19 19:00 05:01 05:01 WBC 6.6 RBC 3.04 L Hgb 10.0 L Hct 28.0 L MCV 92 MCH 33.0 MCHC 35.8 RDW 12.5 Plt Count 205 Seg Neutrophils % 60.0 Sodium 124.8 L Potassium 4.3 Chloride 93 L Carbon Dioxide 23 Anion Gap 9 BUN 15 Creatinine 0.71 Est GFR ( Amer) > 60 Glucose 74 L Serum Osmolality Calcium 7.9 L C-Reactive Protein 33.8 H 10/17/19 05:01 WBC RBC Hgb Hct MCV MCH MCHC RDW Plt Count Seg Neutrophils % Sodium Potassium Chloride Carbon Dioxide Anion Gap BUN Creatinine Est GFR ( Amer) Glucose Serum Osmolality 257 L Calcium C-Reactive Protein 10/16/19 03:15 Troponin I < 0.012 Impressions: Lower Extremity MRI 10/16/19 00:00 IMPRESSION: Osteomyelitis distal 3rd phalanx. Foot X-Ray 10/16/19 02:53 IMPRESSION: Swelling/cellulitis of the left foot. Bony demineralization with interval worsening. Else, multifocal deformities of the left forefoot without suspicious interval changes relative to prior radiographs from February 2017. Consider MRI surveillance. Chest X-Ray 10/16/19 02:54 IMPRESSION: No acute disease. Assessment & Plan - Diagnosis (1) Diabetic ulcer of left foot Qualifiers: Diabetic foot ulcer location: other Diabetes mellitus type: type 2 Non- pressure ulcer stage: with other severity Qualified Code(s): E11.621 - Type 2 diabetes mellitus with foot ulcer; L97.528 - Non-pressure chronic ulcer of other part of left foot with other specified severity Is this a current diagnosis for this admission?: Yes (2) Cellulitis of left foot Is this a current diagnosis for this admission?: Yes (3) Type 2 diabetes mellitus with diabetic neuropathy Is this a current diagnosis for this admission?: Yes - Time Time Spent with patient: 25-34 minutes - Plan Summary Plan Summary: Assessment: Left foot third toe distal phalanx osteomyelitis as per MRI results Deep ulcer left forefoot plantar surface Plan: Left third toe amputation and debridement left forefoot plantar ulcer Procedure, risks, benefits, complications, alternatives, explained to the patient and his family ( and daughter), they understand, their questions were answered to their satisfaction, and the patient desires to proceed
[2019-10-17] MEDS: DOCUSATE SODIUM 100 MG CAPSULE PO SCH ×2 (13:13→18:02)
[2019-10-17] MEDS: GABAPENTIN 400 MG CAPSULE PO SCH ×3 (13:13→18:02)
[2019-10-17] MEDS: EZETIMIBE 10 MG TABLET PO SCH (13:13)
--- NOTE | 2019-10-17 14:13 | PDOC PROGRESS REPORT ---
Subjective Progress Note for:: 10/17/19 Subjective:: This is an 79 year old male with a past medical history of paroxysmal atrial fibrillation on Pradaxa, diabetes, diabetic neuropathy, diabetic foot ulcer requiring digit amputation on the right foot who was brought in due to a draining chronic plantar left foot ulcer and transient confusion. He was noted to be hypoglycemic on presentation. No acute event overnight. Patient is at his baseline mentation. Sugars have improved. Glipizide has been discontinued. MRI came back remarkable for osteomyelitis. Patient is being scheduled for possible amputation by surgery today. Denies chest pain or shortness of breath. Reason For Visit: DM FOOT HYPOGLYCEMIA HYPONATREMIA Physical Exam Vital Signs: Temp Pulse Resp BP Pulse Ox 98.1 F 69 18 147/52 H 99 10/17/19 11:53 10/17/19 11:53 10/17/19 11:53 10/17/19 11:53 10/17/19 11:53 Intake & Output 10/16/19 10/17/19 10/18/19 06:59 06:59 06:59 Intake Total 1340 300 Output Total 650 Balance 690 300 Weight 194 lb 10.691 oz 197 lb 12.074 oz General appearance: PRESENT: no acute distress, well-developed, well-nourished Head exam: PRESENT: atraumatic, normocephalic Eye exam: PRESENT: conjunctiva pink, EOMI, PERRLA. ABSENT: scleral icterus Ear exam: PRESENT: normal external ear exam Mouth exam: PRESENT: moist, tongue midline Neck exam: ABSENT: carotid bruit, JVD, lymphadenopathy, thyromegaly Respiratory exam: PRESENT: clear to auscultation jamila. ABSENT: rales, rhonchi, wheezes Cardiovascular exam: ABSENT: systolic murmur Pulses: PRESENT: normal dorsalis pedis pul GI/Abdominal exam: PRESENT: normal bowel sounds, soft. ABSENT: distended, guarding, mass, organolmegaly, rebound, tenderness Rectal exam: PRESENT: deferred Neurological exam: PRESENT: alert, awake, oriented to person, oriented to place, oriented to time, oriented to situation, CN II-XII grossly intact. ABSENT: motor sensory deficit Results Laboratory Results: 10/17/19 05:01 10/17/19 05:01 10/16/19 10/17/19 10/17/19 19:00 05:01 05:01 WBC 6.6 RBC 3.04 L Hgb 10.0 L Hct 28.0 L MCV 92 MCH 33.0 MCHC 35.8 RDW 12.5 Plt Count 205 Seg Neutrophils % 60.0 Sodium 124.8 L Potassium 4.3 Chloride 93 L Carbon Dioxide 23 Anion Gap 9 BUN 15 Creatinine 0.71 Est GFR ( Amer) > 60 Glucose 74 L Serum Osmolality Calcium 7.9 L C-Reactive Protein 33.8 H 10/17/19 05:01 WBC RBC Hgb Hct MCV MCH MCHC RDW Plt Count Seg Neutrophils % Sodium Potassium Chloride Carbon Dioxide Anion Gap BUN Creatinine Est GFR ( Amer) Glucose Serum Osmolality 257 L Calcium C-Reactive Protein 10/16/19 03:15 Troponin I < 0.012 Impressions: Lower Extremity MRI 10/16/19 00:00 IMPRESSION: Osteomyelitis distal 3rd phalanx. Foot X-Ray 10/16/19 02:53 IMPRESSION: Swelling/cellulitis of the left foot. Bony demineralization with interval worsening. Else, multifocal deformities of the left forefoot without suspicious interval changes relative to prior radiographs from February 2017. Consider MRI surveillance. Chest X-Ray 10/16/19 02:54 IMPRESSION: No acute disease. Assessment and Plan - Diagnosis (1) Osteomyelitis Qualifiers: Osteomyelitis location: foot Laterality: left Is this a current diagnosis for this admission?: Yes Plan: Continue IV antibiotics. Patient is scheduled for left foot, third toe amputation today. (2) Type 2 diabetes mellitus with diabetic neuropathy Is this a current diagnosis for this admission?: Yes Plan: Patient has been having hypoglycemic episodes recently. Family reports that his oral intake has been regular. A1c was checked and came back at 5.7. Discontinue glipizide. Recommend diet controlling his diabetes for now as he has good recent glycemic control. Given his advanced age, less aggressive glycemic control is recommended due to frequent risk hypoglycemia. Still recommend close follow-up with PCP for glycemic control. If his A1c does continue to trend up again in the future, other options aside from glipizide can be considered. (3) Paroxysmal atrial fibrillation Is this a current diagnosis for this admission?: Yes Plan: Currently in sinus rhythm. Not restarted on Pradaxa yet due to anticipated surgery (4) Diabetic ulcer of left foot Qualifiers: Diabetic foot ulcer location: other Diabetes mellitus type: type 2 Non-pr essure ulcer stage: with other severity Qualified Code(s): E11.621 - Type 2 diabetes mellitus with foot ulcer; L97.528 - Non-pressure chronic ulcer of other part of left foot with other specified severity Is this a current diagnosis for this admission?: Yes (5) Hyponatremia Is this a current diagnosis for this admission?: Yes (6) HTN (hypertension) Is this a current diagnosis for this admission?: Yes - Time Time Spent with patient: 25-34 minutes
[2019-10-17] MEDS ORDERED: FENTANYL CITRATE INJ/PF 100 MCG/2 ML AMPUL ONE (15:45)
[2019-10-17] MEDS ORDERED: PROPOFOL INJ 200 MG/20 ML VIAL IV ONE (15:45)
[2019-10-17] MEDS ORDERED: MIDAZOLAM 2 MG/2 ML INJ ONE (15:45)
[2019-10-17] MEDS ORDERED: LIDOCAINE 1% INJ-PF (10 MG/ML) 30 ML SDV ONE (16:10)
[2019-10-17] MEDS ORDERED: FENTANYL CITRATE INJ/PF 100 MCG/2 ML AMPUL IV PRN ×3 (16:13)
[2019-10-17] MEDS ORDERED: DIPHENHYDRAMINE HCL 50 MG/ML VIAL IV PRN (16:13)
[2019-10-17] MEDS ORDERED: PROMETHAZINE HCL INJ 25 MG/1 ML VIAL IV PRN ×2 (16:13)
[2019-10-17] MEDS ORDERED: MEPERIDINE HCL/PF INJ 25 MG/1 ML DISP.SYRIN IV PRN (16:13)
[2019-10-17] MEDS ORDERED: MORPHINE SULFATE 10 MG/ML INJ IV PRN (16:13)
[2019-10-17] MEDS ORDERED: LIDOCAINE 1% INJ-PF (10 MG/ML) 30 ML SDV INJ ONE (16:26)
--- NOTE | 2019-10-17 17:00 | Operative Report ---
Nonrecallable Operative Report DATE OF SURGERY: 10/17/19 PREOPERATIVE DIAGNOSIS: Osteomyelitis of the left third toe distal phalanx POSTOPERATIVE DIAGNOSIS: same OPERATION: Ray amputation left third toe SURGEON: GERONIMO ALVES ANESTHESIA: Other - 20 mL 1% lidocaine TISSUE REMOVED OR ALTERED: Left third toe COMPLICATIONS: None ESTIMATED BLOOD LOSS: Less than 2 mL INTRAOPERATIVE FINDINGS: As above PROCEDURE: The procedure was done in the operating room, the patient was placed in a supine position, general anesthesia induced by intravenous sedation by the anesthesiologist. Proximally to the area of interest, cotton webroll was circumferentially applied to the leg followed by a disposable tourniquet, and protected by a 1010 drape. The left extremity and toe of interest was prepped and draped in the usual fashion. The extremity was exanguinated with an Esmarch band followed by inflation of the tourniquet to about 120 mmHg above the systolic blood pressure. A circumferential incision was made around the proposed area of amputation; the incision was deepened through the subcutaneous tissue down to the bone: this was continued circumferentially. The bone was exposed proximally with periosteal elevator and divided as proximally as possible with a small bone cutter. The specimen was removed from the surgical field and sent to pathology. Local vessels were identified and cauterized. The bone stump edges were filed until the stump was smooth. The surgical field was then irrigated with normal saline until clear. The subcutaneous tissues were loosely approximated with deep inverted 3-0 Vicryl sutures and the skin was closed loosely with interrupted 3-0 nylon vertical mattress sutures. Xeroform gauze was placed on the surgical wound followed by dry 4x4 dressings, ABD's to cover the entire area, and Kerlix roll. A prefabricated fiberglass padded splint was applied posteriorly to the extremity and kept in position with an ADRIANA bandage. This was allowed to cure while the extremity was functionally positioned. The tourniquet was deflated and removed; the tourniquet time was 30 minutes. The patient tolerated the procedure well, was extubated/awoken from the IV sedation, and transferred to the recovery room in satisfactory conditions.
[2019-10-17] MEDS: KETOROLAC TROMETHAMINE INJ/PF 30 MG/1 ML SDV IV SCH ×2 (18:01→23:09)
[2019-10-17] MEDS: ACETAMINOPHEN 1,000 MG/100 ML RTUPB IV SCH ×2 (18:02→23:08)
[2019-10-18] MEDS: ACETAMINOPHEN 1,000 MG/100 ML RTUPB IV SCH ×4 (05:32→23:42)
[2019-10-18] MEDS: KETOROLAC TROMETHAMINE INJ/PF 30 MG/1 ML SDV IV SCH (05:35)
[2019-10-18] MEDS: VANCOMYCIN HCL 1,250 MG in DEXTROSE 5%-WATER 250 ML IV SCH ×2 (06:02→17:40)
[2019-10-18] MEDS ORDERED: (PENDING PHARMACY ID) (Ketotifen Fumarate [Refresh] 5 ML) OP PRN (07:43)
[2019-10-18 08:03] LABS: ABSOLUTE EOSINOPHILS # (AUTO) 0.7 10^3/uL (0.0-0.6); ABSOLUTE LYMPHOCYTES (AUTO) 1.2 10^3/uL (0.5-4.7); ABSOLUTE MONOCYTES (AUTO) 0.5 10^3/uL (0.1-1.4); BASOPHILS % (AUTO) 0.7 % (0-2); EOSINOPHILS % (AUTO) 11.4 % (0-6); HEMATOCRIT 27.3 % (37.9-51.0); HEMOGLOBIN 9.7 g/dL (13.5-17.0); LYMPHOCYTES % (AUTO) 18.3 % (13-45); MEAN CORPUSCULAR HEMOGLOBIN 32.9 pg (27.0-33.4); MEAN CORPUSCULAR HGB CONC 35.6 g/dL (32.0-36.0); MEAN CORPUSCULAR VOLUME 93 fl (80-97); MONOCYTES % (AUTO) 7.6 % (3-13); PLATELET COUNT 200 10^3/uL (150-450); RED BLOOD COUNT 2.95 10^6/uL (4.35-5.55); RED CELL DISTRIBUTION WIDTH 12.8 % (11.5-14.0); TOTAL CELLS COUNTED % (AUTO) 100 %; WHITE BLOOD COUNT 6.5 10^3/uL (4.0-10.5)
[2019-10-18] MEDS: IPRATROPIUM/ALBUTEROL 0.5-2.5 MG/3 ML AMPUL NEB SCH ×2 (08:10→20:37)
[2019-10-18 08:24] LABS: ALBUMIN 2.4 g/dL (3.5-5.0); ALKALINE PHOSPHATASE 77 U/L (38-126); ANION GAP 10 (5-19); ASPARTATE AMINO TRANSFERASE 26 U/L (17-59); BILIRUBIN,DIRECT 0.5 mg/dL (0.0-0.4); BLOOD UREA NITROGEN 16 mg/dL (7-20); CALCIUM 7.9 mg/dL (8.4-10.2); CARBON DIOXIDE 23 mmol/L (22-30); CHLORIDE 93 mmol/L (98-107); GLUCOSE 77 mg/dL (75-110); POTASSIUM 4.3 mmol/L (3.6-5.0)
--- NOTE | 2019-10-18 09:41 | PDOC PROGRESS REPORT ---
Subjective Progress Note for:: 10/18/19 Subjective:: 79 year old male with a past medical history of paroxysmal atrial fibrillation on Pradaxa, diabetes, diabetic neuropathy, diabetic foot ulcer requiring digit amputation on the right foot who was brought in due to a draining chronic plantar left foot ulcer and transient confusion. He was noted to be hypoglycemic on presentation. No acute event overnight. Patient is at his baseline mentation. Sugars have improved. Glipizide has been discontinued. MRI came back remarkable for osteomyelitis. Patient is being scheduled for possible amputation by surgery today. Denies chest pain or shortness of breath. 10/18/[id number]-gjko-old male with history of paroxysmal atrial fibrillation on Pradaxa, diabetes mellitus, diabetic neuropathy, diabetic foot ulcer admitted for left foot ulcer and MRI came back positive for osteomyelitis. Yesterday he went for ray amputation of left third toe. Presently on IV cefepime and vancomycin. T-max is 98.1. Comfortably in the bed communicating well. Not in distress. Reason For Visit: DM FOOT HYPOGLYCEMIA HYPONATREMIA Physical Exam Vital Signs: Temp Pulse Resp BP Pulse Ox 97.7 F 74 16 136/58 H 96 10/18/19 07:37 10/18/19 08:10 10/18/19 08:10 10/18/19 07:37 10/18/19 08:10 Intake & Output 10/17/19 10/18/19 10/19/19 06:59 06:59 06:59 Intake Total 1340 1725 250 Output Total 650 202 Balance 690 1523 250 Weight 89.7 kg 81.9 kg General appearance: PRESENT: no acute distress, well-developed Head exam: PRESENT: atraumatic Eye exam: PRESENT: PERRLA Mouth exam: PRESENT: dry mucosa Teeth exam: PRESENT: poor dentation Neck exam: ABSENT: carotid bruit, JVD, lymphadenopathy, thyromegaly Respiratory exam: PRESENT: decreased breath sounds Cardiovascular exam: PRESENT: RRR. ABSENT: diastolic murmur, rubs, systolic murmur GI/Abdominal exam: PRESENT: normal bowel sounds, soft. ABSENT: distended, guarding, mass, organolmegaly, rebound, tenderness Rectal exam: PRESENT: deferred Extremities exam: PRESENT: full ROM. ABSENT: calf tenderness, clubbing, pedal edema Psychiatric exam: PRESENT: appropriate affect, normal mood. ABSENT: homicidal ideation, suicidal ideation Results Laboratory Results: 10/18/19 05:38 10/18/19 05:38 10/18/19 10/18/19 10/18/19 05:38 05:38 05:38 WBC 6.5 RBC 2.95 L Hgb 9.7 L Hct 27.3 L MCV 93 MCH 32.9 MCHC 35.6 RDW 12.8 Plt Count 200 Seg Neutrophils % 62.0 Sodium 125.6 L Potassium 4.3 Chloride 93 L Carbon Dioxide 23 Anion Gap 10 BUN 16 Creatinine 0.86 0.92 Est GFR ( Amer) > 60 > 60 Glucose 77 Calcium 7.9 L Magnesium 1.6 Total Bilirubin 1.0 AST 26 Alkaline Phosphatase 77 Total Protein 5.0 L Albumin 2.4 L 10/16/19 03:15 Troponin I < 0.012 Impressions: Lower Extremity MRI 10/16/19 00:00 IMPRESSION: Osteomyelitis distal 3rd phalanx. Foot X-Ray 10/16/19 02:53 IMPRESSION: Swelling/cellulitis of the left foot. Bony demineralization with interval worsening. Else, multifocal deformities of the left forefoot without suspicious interval changes relative to prior radiographs from February 2017. Consider MRI surveillance. Chest X-Ray 10/16/19 02:54 IMPRESSION: No acute disease. Assessment and Plan - Diagnosis (1) Osteomyelitis Qualifiers: Osteomyelitis location: foot Laterality: left Is this a current diagnosis for this admission?: Yes Plan: Continue IV antibiotics. Patient is scheduled for left foot, third toe amputation today. 10/18/2019-patient is presently on IV cefepime and vancomycin. He went for ray amputation of left third toe yesterday. MRI of indicate osteomyelitis. W in the bed communicating well. Not in pain. (2) Paroxysmal atrial fibrillation Is this a current diagnosis for this admission?: No Plan: Currently in sinus rhythm. Not restarted on Pradaxa yet due to anticipated surgery 10/18/2019-heart is in sinus rhythm today. Heart rate is around 67. Patient is on Pradaxa at home for paroxysmal atrial fibrillation. Plan is to restart Pradaxa from today. (3) Type 2 diabetes mellitus with diabetic neuropathy Is this a current diagnosis for this admission?: No Plan: Patient has been having hypoglycemic episodes recently. Family reports that his oral intake has been regular. A1c was checked and came back at 5.7. Discontinue glipizide. Recommend diet controlling his diabetes for now as he has good recent glycemic control. Given his advanced age, less aggressive glycemic control is recommended due to frequent risk hypoglycemia. Still recommend close follow-up with PCP for glycemic control. If his A1c does continue to trend up again in the future, other options aside from glipizide can be considered. 10/18/2019-latest blood sugar is 138. Plan is to continue insulin sliding scale coverage before meals and at bedtime. Hemoglobin A1c is 5.7. Glipizide is discontinued. (4) Hyponatremia Is this a current diagnosis for this admission?: Yes Plan: Near patient's baseline, appears prerenal, trial normal saline. Follow-up chemistry 10/18/2019-serum sodium is 125.6 today improved from 124. Hyponatremia may be secondary to prerenal causes. Plan is to continue the present management at this time. (5) HTN (hypertension) Is this a current diagnosis for this admission?: No Plan: 10/18/2019 patient's blood pressure today is 144/53. Stable. Plan is to continue the present management at this time. (6) Osteomyelitis Is this a current diagnosis for this admission?: Yes Plan: 10/18/19- mri shows osteomyelitis of lt 3 rd distal phalynx. s/p ray amputation of lt left third toe on IV cefepime and vancomycin.
[2019-10-18] MEDS: DOCUSATE SODIUM 100 MG CAPSULE PO SCH ×2 (09:48→17:17)
--- NOTE | 2019-10-18 09:48 | PDOC PROGRESS REPORT ---
Subjective Progress Note for:: 10/18/19 Subjective:: The patient is comfortable, he has no complaints Reason For Visit: DM FOOT HYPOGLYCEMIA HYPONATREMIA Physical Exam Vital Signs: Temp Pulse Resp BP Pulse Ox 97.7 F 74 16 136/58 H 96 10/18/19 07:37 10/18/19 08:10 10/18/19 08:10 10/18/19 07:37 10/18/19 08:10 Intake & Output 10/17/19 10/18/19 10/19/19 06:59 06:59 06:59 Intake Total 1340 1725 250 Output Total 650 202 Balance 690 1523 250 Weight 89.7 kg 81.9 kg General appearance: PRESENT: no acute distress Extremities exam: PRESENT: other - Left foot = toe amputation site clean, suture line intact, dry Results Laboratory Results: 10/18/19 05:38 10/18/19 05:38 10/18/19 10/18/19 10/18/19 05:38 05:38 05:38 WBC 6.5 RBC 2.95 L Hgb 9.7 L Hct 27.3 L MCV 93 MCH 32.9 MCHC 35.6 RDW 12.8 Plt Count 200 Seg Neutrophils % 62.0 Sodium 125.6 L Potassium 4.3 Chloride 93 L Carbon Dioxide 23 Anion Gap 10 BUN 16 Creatinine 0.86 0.92 Est GFR ( Amer) > 60 > 60 Glucose 77 Calcium 7.9 L Magnesium 1.6 Total Bilirubin 1.0 AST 26 Alkaline Phosphatase 77 Total Protein 5.0 L Albumin 2.4 L 10/16/19 03:15 Troponin I < 0.012 Impressions: Lower Extremity MRI 10/16/19 00:00 IMPRESSION: Osteomyelitis distal 3rd phalanx. Foot X-Ray 10/16/19 02:53 IMPRESSION: Swelling/cellulitis of the left foot. Bony demineralization with interval worsening. Else, multifocal deformities of the left forefoot without suspicious interval changes relative to prior radiographs from February 2017. Consider MRI surveillance. Chest X-Ray 10/16/19 02:54 IMPRESSION: No acute disease. Assessment & Plan - Diagnosis (1) Diabetic ulcer of left foot Qualifiers: Diabetic foot ulcer location: other Diabetes mellitus type: type 2 Non- pressure ulcer stage: with other severity Qualified Code(s): E11.621 - Type 2 diabetes mellitus with foot ulcer; L97.528 - Non-pressure chronic ulcer of other part of left foot with other specified severity Is this a current diagnosis for this admission?: Yes (2) Cellulitis of left foot Is this a current diagnosis for this admission?: Yes (3) Type 2 diabetes mellitus with diabetic neuropathy Is this a current diagnosis for this admission?: No - Time Time Spent with patient: 25-34 minutes - Plan Summary Plan Summary: Assessment: Postoperative day #1 following amputation of left third toe due to distal phalanx on toe osteomyelitis Physical exam shows a amputation site clean, dry, and intact Plan: Continue strict bedrest and foot elevation Okay to resume the patient on blood thinner Pradaxa Tomorrow, the splint can be removed letter dressing can be applied Patient could be discharged to home as early as tomorrow if medically stable Patient can ambulate on the left leg with heel pressure only
[2019-10-18] MEDS: CEFEPIME 1 GM/D5W RTU 1 GM/50 ML RTUPB IV SCH ×2 (09:49→21:34)
[2019-10-18] MEDS: METOPROLOL SUCCINATE 50 MG TAB.SR.24H PO SCH (09:49)
[2019-10-18] MEDS: EZETIMIBE 10 MG TABLET PO SCH (09:49)
[2019-10-18] MEDS: GABAPENTIN 400 MG CAPSULE PO SCH ×3 (09:49→17:17)
[2019-10-18] MEDS: MULTIVITAMIN TABLET PO SCH (09:49)
[2019-10-18] MEDS: DABIGATRAN ETEXILATE 150 MG CAPSULE PO SCH ×2 (13:26→21:33)
[2019-10-19 05:44] LABS: ABSOLUTE BASOPHILS # (AUTO) 0.1 10^3/uL (0.0-0.2); ABSOLUTE EOSINOPHILS # (AUTO) 1.2 10^3/uL (0.0-0.6); ABSOLUTE LYMPHOCYTES (AUTO) 1.3 10^3/uL (0.5-4.7); ABSOLUTE MONOCYTES (AUTO) 0.3 10^3/uL (0.1-1.4); ABSOLUTE NEUT (AUTO) 4.1 10^3/uL (1.7-8.2); EOSINOPHILS % (AUTO) 17.6 % (0-6); HEMATOCRIT 28.7 % (37.9-51.0); HEMOGLOBIN 10.2 g/dL (13.5-17.0); LYMPHOCYTES % (AUTO) 18.4 % (13-45); MEAN CORPUSCULAR HEMOGLOBIN 32.9 pg (27.0-33.4); MEAN CORPUSCULAR HGB CONC 35.6 g/dL (32.0-36.0); MEAN CORPUSCULAR VOLUME 93 fl (80-97); MONOCYTES % (AUTO) 4.9 % (3-13); PLATELET COUNT 217 10^3/uL (150-450); RED CELL DISTRIBUTION WIDTH 12.6 % (11.5-14.0); SEGMENTED NEUTROPHILS % (AUTO) 58.1 % (42-78); TOTAL CELLS COUNTED % (AUTO) 100 %; WHITE BLOOD COUNT 7.1 10^3/uL (4.0-10.5)
[2019-10-19] MEDS: ACETAMINOPHEN 1,000 MG/100 ML RTUPB IV SCH ×2 (05:48→12:37)
[2019-10-19 06:10] LABS: ALBUMIN 2.5 g/dL (3.5-5.0); ALKALINE PHOSPHATASE 85 U/L (38-126); ANION GAP 7 (5-19); ASPARTATE AMINO TRANSFERASE 27 U/L (17-59); BILIRUBIN,DIRECT 0.4 mg/dL (0.0-0.4); BILIRUBIN,TOTAL 0.9 mg/dL (0.2-1.3); BLOOD UREA NITROGEN 16 mg/dL (7-20); CALCIUM 8.2 mg/dL (8.4-10.2); CARBON DIOXIDE 23 mmol/L (22-30); CHLORIDE 96 mmol/L (98-107); GLUCOSE 76 mg/dL (75-110); POTASSIUM 4.4 mmol/L (3.6-5.0); TOTAL PROTEIN 5.1 g/dL (6.3-8.2)
[2019-10-19] MEDS: VANCOMYCIN HCL 1,250 MG in DEXTROSE 5%-WATER 250 ML IV SCH (06:20)
[2019-10-19] MEDS ORDERED: FUROSEMIDE INJ/PF 40 MG/4 ML SDV IV ONE ×2 (08:00→10:30)
[2019-10-19] MEDS ORDERED: NORMAL SALINE 1000 ML 1,000 ML IV PRN (08:30)
[2019-10-19] MEDS: IPRATROPIUM/ALBUTEROL 0.5-2.5 MG/3 ML AMPUL NEB SCH ×2 (09:01→20:42)
--- NOTE | 2019-10-19 09:40 | PDOC PROGRESS REPORT ---
Subjective Progress Note for:: 10/19/19 Subjective:: 79 year old male with a past medical history of paroxysmal atrial fibrillation on Pradaxa, diabetes, diabetic neuropathy, diabetic foot ulcer requiring digit amputation on the right foot who was brought in due to a draining chronic plantar left foot ulcer and transient confusion. He was noted to be hypoglycemic on presentation. No acute event overnight. Patient is at his baseline mentation. Sugars have improved. Glipizide has been discontinued. MRI came back remarkable for osteomyelitis. Patient is being scheduled for possible amputation by surgery today. Denies chest pain or shortness of breath. 10/18/[id number]-nclz-old male with history of paroxysmal atrial fibrillation on Pradaxa, diabetes mellitus, diabetic neuropathy, diabetic foot ulcer admitted for left foot ulcer and MRI came back positive for osteomyelitis. Yesterday he went for ray amputation of left third toe. Presently on IV cefepime and vancomycin. T-max is 98.1. Comfortably in the bed communicating well. Not in distress. 79-year-old male with multiple medical problems including the diabetes mellitus, diabetic neuropathy admitted with a diabetic foot ulcer MRI of the left foot was done found to have osteomyelitis affecting the lt third toe status post ray amputation of the toe. I discussed the plan with Dr. Maciel his recommendation is we can discontinue antibiotics from today. Cultures are showing Pseudomonas and E. coli from the deep wound. Afebrile. WBC count is 7.1. Room sodium is 126 plan is to repeat the labs tomorrow. Serum osmolality and urine osmolality requested. Reason For Visit: DM FOOT HYPOGLYCEMIA HYPONATREMIA Physical Exam Vital Signs: Temp Pulse Resp BP Pulse Ox 98.1 F 65 16 132/60 H 97 10/19/19 07:43 10/19/19 09:01 10/19/19 09:01 10/19/19 07:43 10/19/19 09:01 Intake & Output 10/18/19 10/19/19 10/20/19 06:59 06:59 06:59 Intake Total 1725 2840 250 Output Total 202 650 Balance 1523 2190 250 Weight 81.9 kg 86.1 kg General appearance: PRESENT: no acute distress, well-developed, well-nourished Head exam: PRESENT: atraumatic Eye exam: PRESENT: PERRLA Mouth exam: PRESENT: moist, tongue midline Teeth exam: PRESENT: poor dentation Neck exam: ABSENT: carotid bruit, JVD, lymphadenopathy, thyromegaly Respiratory exam: PRESENT: decreased breath sounds Cardiovascular exam: PRESENT: RRR. ABSENT: diastolic murmur, rubs, systolic murmur GI/Abdominal exam: PRESENT: normal bowel sounds, soft. ABSENT: distended, guarding, mass, organolmegaly, rebound, tenderness Rectal exam: PRESENT: deferred Extremities exam: PRESENT: other - Left lower extremity wrapped in Chalino wrap. Neurological exam: PRESENT: alert, awake, oriented to person, oriented to place, oriented to time, oriented to situation, CN II-XII grossly intact. ABSENT: motor sensory deficit Psychiatric exam: PRESENT: appropriate affect, normal mood. ABSENT: homicidal ideation, suicidal ideation Results Laboratory Results: 10/19/19 05:19 10/19/19 05:19 10/19/19 10/19/19 10/19/19 05:19 05:19 05:19 WBC 7.1 RBC 3.10 L Hgb 10.2 L Hct 28.7 L MCV 93 MCH 32.9 MCHC 35.6 RDW 12.6 Plt Count 217 Seg Neutrophils % 58.1 Sodium 126.2 L Potassium 4.4 Chloride 96 L Carbon Dioxide 23 Anion Gap 7 BUN 16 Creatinine 0.94 Est GFR ( Amer) > 60 Glucose 76 Serum Osmolality 262 L Calcium 8.2 L Magnesium 1.6 Total Bilirubin 0.9 AST 27 Alkaline Phosphatase 85 Total Protein 5.1 L Albumin 2.5 L 10/16/19 03:15 Troponin I < 0.012 Impressions: Lower Extremity MRI 10/16/19 00:00 IMPRESSION: Osteomyelitis distal 3rd phalanx. Foot X-Ray 10/16/19 02:53 IMPRESSION: Swelling/cellulitis of the left foot. Bony demineralization with interval worsening. Else, multifocal deformities of the left forefoot without suspicious interval changes relative to prior radiographs from February 2017. Consider MRI surveillance. Chest X-Ray 10/16/19 02:54 IMPRESSION: No acute disease. Assessment and Plan - Diagnosis (1) Osteomyelitis Qualifiers: Osteomyelitis location: foot Laterality: left Is this a current diagnosis for this admission?: Yes Plan: Continue IV antibiotics. Patient is scheduled for left foot, third toe amputation today. 10/18/2019-patient is presently on IV cefepime and vancomycin. He went for ray amputation of left third toe yesterday. MRI of indicate osteomyelitis. W in the bed communicating well. Not in pain. 10/19/2019-MRI of the left foot indicate osteomyelitis affecting the left third toe. Status post ray amputation of the left third toe. Presently on IV vancomycin and cefepime deep wound cultures are positive for Pseudomonas and E. coli because of the amputation Dr. Turpin thinks patient does not need antibiotics from today. Patient is afebrile and WBC count is 7100. (2) Paroxysmal atrial fibrillation Is this a current diagnosis for this admission?: No Plan: Currently in sinus rhythm. Not restarted on Pradaxa yet due to anticipated rosaline adilson 10/18/2019-heart is in sinus rhythm today. Heart rate is around 67. Patient is on Pradaxa at home for paroxysmal atrial fibrillation. Plan is to restart Pradaxa from today. 10/19/2019-patient has history of paroxysmal atrial fibrillation on examination he is in sinus rhythm heart rate is around 60. Plan is to continue Pradaxa 150 mg p.o. twice a day. (3) Type 2 diabetes mellitus with diabetic neuropathy Is this a current diagnosis for this admission?: No Plan: Patient has been having hypoglycemic episodes recently. Family reports that his oral intake has been regular. A1c was checked and came back at 5.7. Prashantho leslye glipizide. Recommend diet controlling his diabetes for now as he has good recent glycemic control. Given his advanced age, less aggressive glycemic control is recommended due to frequent risk hypoglycemia. Still recommend close follow-up with PCP for glycemic control. If his A1c does continue to trend up again in the future, other options aside from glipizide can be considered. 10/18/2019-latest blood sugar is 138. Plan is to continue insulin sliding scale coverage before meals and at bedtime. Hemoglobin A1c is 5.7. Glipizide is discontinued. 2020-blood sugar this morning is 76. Patient is type II diabetic plan is to continue insulin sliding scale before meals and at bedtime. Hemoglobin A1c is 5.7 glipizide was discontinued during this hospital stay. (4) Hyponatremia Is this a current diagnosis for this admission?: Yes Plan: Near patient's baseline, appears prerenal, trial normal saline. Follow-up chemistry 10/18/2019-serum sodium is 125.6 today improved from 124. Hyponatremia may be secondary to prerenal causes. Plan is to continue the present management at this time. 10/19/2019-patient is persistently hyponatremic, asymptomatic serum sodium is 126. To check for serum osmolality and urine osmolality today. To repeat the labs tomorrow. (5) HTN (hypertension) Is this a current diagnosis for this admission?: No Plan: 10/18/2019 patient's blood pressure today is 144/53. Stable. Plan is to co ntinue the present management at this time. 10/19/2019-blood pressure today is 130/60. Stable. Plan is to closely monitor the blood pressures on regular basis. (6) Osteomyelitis Is this a current diagnosis for this admission?: Yes Plan: 10/18/19- mri shows osteomyelitis of lt 3 rd distal phalynx. s/p ray amputation of lt left third toe on IV cefepime and vancomycin.
[2019-10-19] MEDS: DABIGATRAN ETEXILATE 150 MG CAPSULE PO SCH ×2 (10:00→21:44)
[2019-10-19] MEDS: EZETIMIBE 10 MG TABLET PO SCH (10:00)
[2019-10-19] MEDS: GABAPENTIN 400 MG CAPSULE PO SCH ×3 (10:00→18:12)
[2019-10-19] MEDS: DOCUSATE SODIUM 100 MG CAPSULE PO SCH ×2 (10:00→17:53)
[2019-10-19] MEDS: MULTIVITAMIN TABLET PO SCH (10:00)
[2019-10-19] MEDS: METOPROLOL SUCCINATE 50 MG TAB.SR.24H PO SCH (10:01)
--- NOTE | 2019-10-19 10:57 | PDOC PROGRESS REPORT ---
Subjective Progress Note for:: 10/19/19 Subjective:: Patient comfortable, no complaints Reason For Visit: DM FOOT HYPOGLYCEMIA HYPONATREMIA Physical Exam Vital Signs: Temp Pulse Resp BP Pulse Ox 98.1 F 65 16 132/60 H 97 10/19/19 07:43 10/19/19 09:01 10/19/19 09:01 10/19/19 07:43 10/19/19 09:01 Intake & Output 10/18/19 10/19/19 10/20/19 06:59 06:59 06:59 Intake Total 1725 2840 250 Output Total 202 650 Balance 1523 2190 250 Weight 81.9 kg 86.1 kg General appearance: PRESENT: no acute distress Extremities exam: PRESENT: other - Left foot = third toe amputation site clean, dry, and intact, no edema erythema or drainage; forefoot pink without evidence of erythema or edema Results Laboratory Results: 10/19/19 05:19 10/19/19 05:19 10/19/19 10/19/19 10/19/19 05:19 05:19 05:19 WBC 7.1 RBC 3.10 L Hgb 10.2 L Hct 28.7 L MCV 93 MCH 32.9 MCHC 35.6 RDW 12.6 Plt Count 217 Seg Neutrophils % 58.1 Sodium 126.2 L Potassium 4.4 Chloride 96 L Carbon Dioxide 23 Anion Gap 7 BUN 16 Creatinine 0.94 Est GFR ( Amer) > 60 Glucose 76 Serum Osmolality 262 L Calcium 8.2 L Magnesium 1.6 Total Bilirubin 0.9 AST 27 Alkaline Phosphatase 85 Total Protein 5.1 L Albumin 2.5 L 10/16/19 03:15 Troponin I < 0.012 Impressions: Lower Extremity MRI 10/16/19 00:00 IMPRESSION: Osteomyelitis distal 3rd phalanx. Foot X-Ray 10/16/19 02:53 IMPRESSION: Swelling/cellulitis of the left foot. Bony demineralization with interval worsening. Else, multifocal deformities of the left forefoot without suspicious interval changes relative to prior radiographs from February 2017. Consider MRI surveillance. Chest X-Ray 10/16/19 02:54 IMPRESSION: No acute disease. Assessment & Plan - Diagnosis (1) Diabetic ulcer of left foot Qualifiers: Diabetic foot ulcer location: other Diabetes mellitus type: type 2 Non- pressure ulcer stage: with other severity Qualified Code(s): E11.621 - Type 2 diabetes mellitus with foot ulcer; L97.528 - Non-pressure chronic ulcer of other part of left foot with other specified severity Is this a current diagnosis for this admission?: Yes (2) Cellulitis of left foot Is this a current diagnosis for this admission?: Yes (3) Type 2 diabetes mellitus with diabetic neuropathy Is this a current diagnosis for this admission?: No - Time Time Spent with patient: 25-34 minutes - Plan Summary Plan Summary: Assessment: Hospital day #3 following admission for left forefoot cellulitis and third toe osteomyelitis Postoperative day #2 after left third toe amputation Vital signs stable, afebrile White blood cell count within normal limits Culture from left foot deep plantar wound significant for E. coli and Pseudomonas sensitive to current antibiotics (Zosyn) Left foot amputation site clean, dry, and intact Left foot cellulitis regressed Plan: Due to the culture results, I am recommending the patient to be on Zosyn for an additional 3 days, afterward he can be discharged to home on a 15-day oral course of Levaquin and Cipro PT consult for evaluation of patient ambulation: Patient can ambulate with a walker with left heel weight bearing only Follow-up with surgical office in 3 weeks after discharge for suture removal Sponge bath only, do no immerse left foot in water until sutures have been removed Daily dressing changes with Xeroform gauze on wound covered by 4 x 4's, Kerlix roll, and Chalino bandage I will sign off, please call us with questions
[2019-10-19] MEDS ORDERED: ACETAMINOPHEN 325 MG TABLET PO PRN (12:41)
[2019-10-19] MEDS ORDERED: PIPERACILLIN/TAZOBACTAM 3.375 GM VIAL IV SCH (14:00)
[2019-10-19] MEDS: PIPERACILLIN SODIUM/TAZOBACTAM 3.375 GM in NORMAL SALINE 100 ML IV SCH ×2 (14:25→21:44)
[2019-10-20] MEDS: PIPERACILLIN SODIUM/TAZOBACTAM 3.375 GM in NORMAL SALINE 100 ML IV SCH ×3 (05:36→21:55)
[2019-10-20 06:43] LABS: ABSOLUTE BASOPHILS # (AUTO) 0.1 10^3/uL (0.0-0.2); ABSOLUTE EOSINOPHILS # (AUTO) 0.8 10^3/uL (0.0-0.6); ABSOLUTE LYMPHOCYTES (AUTO) 1.4 10^3/uL (0.5-4.7); ABSOLUTE MONOCYTES (AUTO) 0.4 10^3/uL (0.1-1.4); ABSOLUTE NEUT (AUTO) 3.9 10^3/uL (1.7-8.2); BASOPHILS % (AUTO) 0.8 % (0-2); EOSINOPHILS % (AUTO) 11.5 % (0-6); HEMATOCRIT 29.4 % (37.9-51.0); HEMOGLOBIN 10.5 g/dL (13.5-17.0); LYMPHOCYTES % (AUTO) 21.8 % (13-45); MEAN CORPUSCULAR HEMOGLOBIN 32.8 pg (27.0-33.4); MEAN CORPUSCULAR HGB CONC 35.8 g/dL (32.0-36.0); MEAN CORPUSCULAR VOLUME 92 fl (80-97); MONOCYTES % (AUTO) 6.4 % (3-13); PLATELET COUNT 228 10^3/uL (150-450); RED BLOOD COUNT 3.21 10^6/uL (4.35-5.55); RED CELL DISTRIBUTION WIDTH 12.8 % (11.5-14.0); SEGMENTED NEUTROPHILS % (AUTO) 59.5 % (42-78); TOTAL CELLS COUNTED % (AUTO) 100 %; WHITE BLOOD COUNT 6.6 10^3/uL (4.0-10.5)
[2019-10-20 06:49] LABS: ALBUMIN 2.6 g/dL (3.5-5.0); ALKALINE PHOSPHATASE 89 U/L (38-126); ANION GAP 11 (5-19); ASPARTATE AMINO TRANSFERASE 32 U/L (17-59); BILIRUBIN,DIRECT 0.4 mg/dL (0.0-0.4); BILIRUBIN,TOTAL 1.4 mg/dL (0.2-1.3); BLOOD UREA NITROGEN 15 mg/dL (7-20); CALCIUM 8.3 mg/dL (8.4-10.2); CARBON DIOXIDE 23 mmol/L (22-30); CHLORIDE 91 mmol/L (98-107); POTASSIUM 4.1 mmol/L (3.6-5.0); TOTAL PROTEIN 5.3 g/dL (6.3-8.2)
[2019-10-20 06:57] LABS: GLUCOSE 54 mg/dL (75-110)
[2019-10-20] MEDS: IPRATROPIUM/ALBUTEROL 0.5-2.5 MG/3 ML AMPUL NEB SCH ×2 (08:32→20:29)
[2019-10-20] MEDS: METOPROLOL SUCCINATE 50 MG TAB.SR.24H PO SCH (11:04)
[2019-10-20] MEDS: DOCUSATE SODIUM 100 MG CAPSULE PO SCH ×2 (11:04→17:40)
[2019-10-20] MEDS: EZETIMIBE 10 MG TABLET PO SCH (11:05)
[2019-10-20] MEDS: MULTIVITAMIN TABLET PO SCH (11:05)
[2019-10-20] MEDS: GABAPENTIN 400 MG CAPSULE PO SCH ×3 (11:05→18:28)
[2019-10-20] MEDS: DABIGATRAN ETEXILATE 150 MG CAPSULE PO SCH ×2 (11:06→21:55)
--- NOTE | 2019-10-20 15:05 | PDOC PROGRESS REPORT ---
Subjective Progress Note for:: 10/20/19 Reason For Visit: DM FOOT HYPOGLYCEMIA HYPONATREMIA 10/20/2019 Patient was admitted 3 days ago for cellulitis and ulcer of the left foot Patient is postop day 3 from amputation of the third toe secondary to osteomyelitis Physical Exam Vital Signs: Temp Pulse Resp BP Pulse Ox 98.0 F 71 20 124/41 L 96 10/20/19 12:00 10/20/19 12:00 10/20/19 12:22 10/20/19 12:00 10/20/19 12:22 Intake & Output 10/19/19 10/20/19 10/21/19 06:59 06:59 06:59 Intake Total 2840 1660 Output Total 650 2100 Balance 2190 -440 Weight 86.1 kg 85.2 kg General appearance: PRESENT: no acute distress Respiratory exam: PRESENT: clear to auscultation jamila. ABSENT: rales, rhonchi, wheezes Cardiovascular exam: PRESENT: RRR. ABSENT: diastolic murmur, rubs, systolic murmur Extremities exam: PRESENT: other - Wound care deferred to general surgery Neurological exam: PRESENT: alert, awake, oriented to person, oriented to place, oriented to time, oriented to situation, CN II-XII grossly intact. ABSENT: motor sensory deficit Psychiatric exam: PRESENT: appropriate affect, normal mood. ABSENT: homicidal ideation, suicidal ideation Results Laboratory Results: 10/20/19 05:13 10/20/19 05:13 10/19/19 10/20/19 10/20/19 23:48 05:13 05:13 WBC 6.6 RBC 3.21 L Hgb 10.5 L Hct 29.4 L MCV 92 MCH 32.8 MCHC 35.8 RDW 12.8 Plt Count 228 Seg Neutrophils % 59.5 Sodium 124.7 L Potassium 4.1 Chloride 91 L Carbon Dioxide 23 Anion Gap 11 BUN 15 Creatinine 0.86 Est GFR ( Amer) > 60 Glucose 54 L Calcium 8.3 L Magnesium 1.5 L Total Bilirubin 1.4 H AST 32 Alkaline Phosphatase 89 Total Protein 5.3 L Albumin 2.6 L Urine Osmolality 370 10/16/19 05:40 Foot - Deep Wound Gram Stain - Final 10/16/19 03:15 Troponin I < 0.012 Impressions: Lower Extremity MRI 10/16/19 00:00 IMPRESSION: Osteomyelitis distal 3rd phalanx. Foot X-Ray 10/16/19 02:53 IMPRESSION: Swelling/cellulitis of the left foot. Bony demineralization with interval worsening. Else, multifocal deformities of the left forefoot without suspicious interval changes relative to prior radiographs from February 2017. Consider MRI surveillance. Chest X-Ray 10/16/19 02:54 IMPRESSION: No acute disease. Assessment and Plan - Diagnosis (1) Diabetic ulcer of left foot Qualifiers: Diabetic foot ulcer location: other Diabetes mellitus type: type 2 Non-pressure ulcer stage: with other severity Qualified Code(s): E11.621 - Type 2 diabetes mellitus with foot ulcer; L97.528 - Non-pressure chronic ulcer of other part of left foot with other specified severity Is this a current diagnosis for this admission?: Yes (2) Hypoglycemia Is this a current diagnosis for this admission?: Yes (3) Hyponatremia Is this a current diagnosis for this admission?: Yes (4) Osteomyelitis Qualifiers: Osteomyelitis location: foot Laterality: left Is this a current diagnosis for this admission?: Yes (5) Cellulitis of left foot Is this a current diagnosis for this admission?: Yes - Plan Summary Summary: 10/20/2019 Vital signs are stable patient is afebrile pulse is 70 blood pressure 124/41 O2 sat 98% on room air White blood cell count remains normal 6600 Patient was admitted with a sodium of 128 today it is 124 Potassium is normal 4.1 renal functions are normal A1C on admission was 5.7 Wound cultures growing out Pseudomonas and E. coli, sensitive to most antibiotics Patient currently on IV vancomycin and Zosyn, IV antibiotics will be discontinued on the and patient will be switched over to Levaquin for 2 weeks. Patient ambulated with a walker and physical therapy assistance 50 feet Patient has a port in the right anterior chest wall from a diagnosis of melanoma 2 years ago Anticipate discharge on the or . Patient will need home health - Time Time Spent with patient: 25-34 minutes
[2019-10-21] MEDS: PIPERACILLIN SODIUM/TAZOBACTAM 3.375 GM in NORMAL SALINE 100 ML IV SCH ×3 (05:34→21:07)
[2019-10-21] MEDS: IPRATROPIUM/ALBUTEROL 0.5-2.5 MG/3 ML AMPUL NEB SCH ×2 (08:28→20:35)
[2019-10-21] MEDS: METOPROLOL SUCCINATE 50 MG TAB.SR.24H PO SCH (10:16)
[2019-10-21] MEDS: MULTIVITAMIN TABLET PO SCH (10:16)
[2019-10-21] MEDS: GABAPENTIN 400 MG CAPSULE PO SCH ×3 (10:16→17:04)
[2019-10-21] MEDS: DOCUSATE SODIUM 100 MG CAPSULE PO SCH ×2 (10:16→17:04)
[2019-10-21] MEDS: DABIGATRAN ETEXILATE 150 MG CAPSULE PO SCH ×2 (10:16→21:06)
[2019-10-21] MEDS: EZETIMIBE 10 MG TABLET PO SCH (10:17)
--- NOTE | 2019-10-21 14:31 | PDOC PROGRESS REPORT ---
Subjective Progress Note for:: 10/21/19 Reason For Visit: DM FOOT HYPOGLYCEMIA HYPONATREMIA 10/21/2019 Patient admitted for cellulitis and ulcer of the left foot secondary to osteomyelitis Physical Exam Vital Signs: Temp Pulse Resp BP Pulse Ox 97.4 F 71 16 125/57 L 97 10/21/19 11:44 10/21/19 11:44 10/21/19 11:44 10/21/19 11:44 10/21/19 11:44 Intake & Output 10/20/19 10/21/19 10/22/19 06:59 06:59 06:59 Intake Total 1660 1398 Output Total 2100 1150 Balance -440 248 Weight 85.2 kg 83.6 kg 83.6 kg General appearance: PRESENT: no acute distress Respiratory exam: PRESENT: clear to auscultation jamila. ABSENT: rales, rhonchi, wheezes Cardiovascular exam: PRESENT: RRR. ABSENT: diastolic murmur, rubs, systolic murmur Extremities exam: PRESENT: other - Deferred to general surgery Neurological exam: PRESENT: alert, awake, oriented to person, oriented to place, oriented to time, oriented to situation, CN II-XII grossly intact. ABSENT: motor sensory deficit Psychiatric exam: PRESENT: appropriate affect, normal mood. ABSENT: homicidal ideation, suicidal ideation Results Laboratory Results: 10/20/19 05:13 10/20/19 05:13 10/16/19 05:40 Foot - Deep Wound Gram Stain - Final 10/16/19 05:40 Foot - Deep Wound Wound Culture - Final Pseudomonas Aeruginosa Escherichia Coli Enterococcus Faecalis(Group D) 10/16/19 05:40 Blood Blood Culture - Final NO GROWTH IN 5 DAYS 10/16/19 03:15 Blood Blood Culture - Final NO GROWTH IN 5 DAYS 10/16/19 03:15 Troponin I < 0.012 Impressions: Lower Extremity MRI 10/16/19 00:00 IMPRESSION: Osteomyelitis distal 3rd phalanx. Foot X-Ray 10/16/19 02:53 IMPRESSION: Swelling/cellulitis of the left foot. Bony demineralization with interval worsening. Else, multifocal deformities of the left forefoot without suspicious interval changes relative to prior radiographs from February 2017. Consider MRI surveillance. Chest X-Ray 10/16/19 02:54 IMPRESSION: No acute disease. Assessment and Plan - Diagnosis (1) Diabetic ulcer of left foot Qualifiers: Diabetic foot ulcer location: other Diabetes mellitus type: type 2 Non- pressure ulcer stage: with other severity Qualified Code(s): E11.621 - Type 2 diabetes mellitus with foot ulcer; L97.528 - Non-pressure chronic ulcer of other part of left foot with other specified severity Is this a current diagnosis for this admission?: Yes (2) Hypoglycemia Is this a current diagnosis for this admission?: Yes (3) Hyponatremia Is this a current diagnosis for this admission?: Yes (4) Osteomyelitis Qualifiers: Osteomyelitis location: foot Laterality: left Is this a current diagnosis for this admission?: Yes (5) Cellulitis of left foot Is this a current diagnosis for this admission?: Yes - Plan Summary Summary: 10/20/2019 Vital signs are stable patient is afebrile pulse is 70 blood pressure 124/41 O2 sat 98% on room air White blood cell count remains normal 6600 Patient was admitted with a sodium of 128 today it is 124 Potassium is normal 4.1 renal functions are normal A1C on admission was 5.7 Wound cultures growing out Pseudomonas and E. coli, sensitive to most antibiotics Patient currently on IV vancomycin and Zosyn, IV antibiotics will be discontinued on the and patient will be switched over to Levaquin for 2 we eks. Patient ambulated with a walker and physical therapy assistance 50 feet Patient has a port in the right anterior chest wall from a diagnosis of melanoma 2 years ago Anticipate discharge on the or . Patient will need home health 10/21/2019 Patient and his are very pleasant patient is asking when he will be able to go home. Told him I will switch him over to p.o. antibiotics on Saturday and discharge him on Saturday Recheck labs tomorrow. I put an order in for discharge planning for home health, wound care, therapy, Occupational Therapy We have discussed patient in CAPS rounds today. - Time Time Spent with patient: 25-34 minutes
[2019-10-22 05:12] LABS: ABSOLUTE LYMPHOCYTES (AUTO) 1.4 10^3/uL (0.5-4.7); ABSOLUTE MONOCYTES (AUTO) 0.6 10^3/uL (0.1-1.4); MEAN CORPUSCULAR VOLUME 92 fl (80-97); TOTAL CELLS COUNTED % (AUTO) 100 %
[2019-10-22 05:19] LABS: ABSOLUTE EOSINOPHILS # (AUTO) 0.9 10^3/uL (0.0-0.6); ABSOLUTE NEUT (AUTO) 3.9 10^3/uL (1.7-8.2); BASOPHILS % (AUTO) 0.7 % (0-2); HEMATOCRIT 30.3 % (37.9-51.0); HEMOGLOBIN 10.9 g/dL (13.5-17.0); LYMPHOCYTES % (AUTO) 20.7 % (13-45); MEAN CORPUSCULAR HEMOGLOBIN 32.8 pg (27.0-33.4); MEAN CORPUSCULAR HGB CONC 35.8 g/dL (32.0-36.0); MONOCYTES % (AUTO) 8.7 % (3-13); PLATELET COUNT 231 10^3/uL (150-450); RED BLOOD COUNT 3.31 10^6/uL (4.35-5.55); RED CELL DISTRIBUTION WIDTH 12.2 % (11.5-14.0); SEGMENTED NEUTROPHILS % (AUTO) 56.9 % (42-78); WHITE BLOOD COUNT 6.8 10^3/uL (4.0-10.5)
[2019-10-22] MEDS: PIPERACILLIN SODIUM/TAZOBACTAM 3.375 GM in NORMAL SALINE 100 ML IV SCH ×3 (05:32→21:47)
[2019-10-22 05:38] LABS: ANION GAP 7 (5-19); BLOOD UREA NITROGEN 11 mg/dL (7-20); CALCIUM 8.3 mg/dL (8.4-10.2); CARBON DIOXIDE 26 mmol/L (22-30); CHLORIDE 94 mmol/L (98-107); GLUCOSE 91 mg/dL (75-110); POTASSIUM 4.3 mmol/L (3.6-5.0)
[2019-10-22] MEDS: IPRATROPIUM/ALBUTEROL 0.5-2.5 MG/3 ML AMPUL NEB SCH (08:26)
[2019-10-22] MEDS ORDERED: IPRATROPIUM/ALBUTEROL 0.5-2.5 MG/3 ML AMPUL NEB PRN (09:00)
[2019-10-22] MEDS: METOPROLOL SUCCINATE 50 MG TAB.SR.24H PO SCH (09:38)
[2019-10-22] MEDS: GABAPENTIN 400 MG CAPSULE PO SCH ×3 (09:38→17:38)
[2019-10-22] MEDS: EZETIMIBE 10 MG TABLET PO SCH (09:38)
[2019-10-22] MEDS: MULTIVITAMIN TABLET PO SCH (09:38)
[2019-10-22] MEDS: DABIGATRAN ETEXILATE 150 MG CAPSULE PO SCH ×2 (09:39→21:46)
[2019-10-22] MEDS: DOCUSATE SODIUM 100 MG CAPSULE PO SCH ×2 (09:39→17:19)
--- NOTE | 2019-10-22 12:51 | PDOC PROGRESS REPORT ---
Subjective Progress Note for:: 10/22/19 Reason For Visit: DM FOOT HYPOGLYCEMIA HYPONATREMIA 10/22/2019 Cellulitis and osteomyelitis of the left foot Physical Exam Vital Signs: Temp Pulse Resp BP Pulse Ox 97.9 F 67 18 149/59 H 99 10/22/19 11:39 10/22/19 11:39 10/22/19 11:39 10/22/19 07:36 10/22/19 11:39 Intake & Output 10/21/19 10/22/19 10/23/19 06:59 06:59 06:59 Intake Total 1398 1900 Output Total 1150 1000 Balance 248 900 Weight 83.6 kg 84.4 kg General appearance: PRESENT: no acute distress Respiratory exam: PRESENT: clear to auscultation jamila. ABSENT: rales, rhonchi, wheezes Cardiovascular exam: PRESENT: RRR. ABSENT: diastolic murmur, rubs, systolic murmur Neurological exam: PRESENT: alert, awake, oriented to person, oriented to place, oriented to time, oriented to situation, CN II-XII grossly intact. ABSENT: motor sensory deficit Psychiatric exam: PRESENT: appropriate affect, normal mood. ABSENT: homicidal ideation, suicidal ideation Results Laboratory Results: 10/22/19 04:35 10/22/19 04:35 10/22/19 10/22/19 04:35 04:35 WBC 6.8 RBC 3.31 L Hgb 10.9 L Hct 30.3 L MCV 92 MCH 32.8 MCHC 35.8 RDW 12.2 Plt Count 231 Seg Neutrophils % 56.9 Sodium 127.1 L Potassium 4.3 Chloride 94 L Carbon Dioxide 26 Anion Gap 7 BUN 11 Creatinine 0.73 Est GFR ( Amer) > 60 Glucose 91 Calcium 8.3 L 10/16/19 05:40 Foot - Deep Wound Gram Stain - Final 10/16/19 05:40 Foot - Deep Wound Wound Culture - Final Pseudomonas Aeruginosa Escherichia Coli Enterococcus Faecalis(Group D) 10/16/19 03:15 Troponin I < 0.012 Impressions: Lower Extremity MRI 10/16/19 00:00 IMPRESSION: Osteomyelitis distal 3rd phalanx. Foot X-Ray 10/16/19 02:53 IMPRESSION: Swelling/cellulitis of the left foot. Bony demineralization with interval worsening. Else, multifocal deformities of the left forefoot without suspicious interval changes relative to prior radiographs from February 2017. Consider MRI surveillance. Chest X-Ray 10/16/19 02:54 IMPRESSION: No acute disease. Assessment and Plan - Diagnosis (1) Diabetic ulcer of left foot Qualifiers: Diabetic foot ulcer location: other Diabetes mellitus type: type 2 Non-pressure ulcer stage: with other severity Qualified Code(s): E11.621 - Type 2 diabetes mellitus with foot ulcer; L97.528 - Non-pressure chronic ulcer of other part of left foot with other specified severity Is this a current diagnosis for this admission?: Yes (2) Hypoglycemia Is this a current diagnosis for this admission?: Yes (3) Hyponatremia Is this a current diagnosis for this admission?: Yes (4) Osteomyelitis Qualifiers: Osteomyelitis location: foot Laterality: left Is this a current diagnosis for this admission?: Yes (5) Cellulitis of left foot Is this a current diagnosis for this admission?: Yes - Plan Summary Summary: 10/20/2019 Vital signs are stable patient is afebrile pulse is 70 blood pressure 124/41 O2 sat 98% on room air White blood cell count remains normal 6600 Patient was admitted with a sodium of 128 today it is 124 Potassium is normal 4.1 renal functions are normal A1C on admission was 5.7 Wound cultures growing out Pseudomonas and E. coli, sensitive to most antibiotics Patient currently on IV vancomycin and Zosyn, IV antibiotics will be discontinued on the and patient will be switched over to Levaquin for 2 weeks. Patient ambulated with a walker and physical therapy assistance 50 feet Patient has a port in the right anterior chest wall from a diagnosis of melanoma 2 years ago Anticipate discharge on the or . Patient will need home health 10/21/2019 Patient and his are very pleasant patient is asking when he will be able to go home. Told him I will switch him over to p.o. antibiotics on Saturday and discharge him on Saturday Recheck labs tomorrow. I put an order in for discharge planning for home health, wound care, therapy, Occupational Therapy We have discussed patient in CAPS rounds today. 10/22/2019 Patient awake alert at the bedside Vital signs are stable CBC and electrolytes are normal Patient growing out Pseudomonas and E. coli from his wound [facility] will be the last day of his IV antibiotics and I will switch him over to p.o. Levaquin for discharge on Saturday Home health will assist with wound care and dressing changes - Time Time Spent with patient: 25-34 minutes
[2019-10-23] MEDS: PIPERACILLIN SODIUM/TAZOBACTAM 3.375 GM in NORMAL SALINE 100 ML IV SCH ×3 (05:35→21:39)
[2019-10-23] MEDS: DABIGATRAN ETEXILATE 150 MG CAPSULE PO SCH ×2 (11:07→21:39)
[2019-10-23] MEDS: MULTIVITAMIN TABLET PO SCH (11:07)
[2019-10-23] MEDS: DOCUSATE SODIUM 100 MG CAPSULE PO SCH ×3 (11:07→17:46)
[2019-10-23] MEDS: GABAPENTIN 400 MG CAPSULE PO SCH ×3 (11:07→17:45)
[2019-10-23] MEDS: METOPROLOL SUCCINATE 50 MG TAB.SR.24H PO SCH (11:08)
[2019-10-23] MEDS: EZETIMIBE 10 MG TABLET PO SCH (11:08)
--- NOTE | 2019-10-23 13:09 | PDOC PROGRESS REPORT ---
Subjective Progress Note for:: 10/23/19 Reason For Visit: DM FOOT HYPOGLYCEMIA HYPONATREMIA 10/23/2019 Cellulitis and osteomyelitis of the left foot Physical Exam Vital Signs: Temp Pulse Resp BP Pulse Ox 98.2 F 60 15 106/81 93 10/23/19 08:01 10/23/19 09:08 10/23/19 09:08 10/23/19 08:01 10/23/19 09:08 Intake & Output 10/22/19 10/23/19 10/24/19 06:59 06:59 06:59 Intake Total 1900 1380 Output Total 1000 1750 Balance 900 -370 Weight 84.4 kg 81.6 kg General appearance: PRESENT: no acute distress, other Respiratory exam: PRESENT: clear to auscultation jamila. ABSENT: rales, rhonchi, wheezes Cardiovascular exam: PRESENT: RRR. ABSENT: diastolic murmur, rubs, systolic murmur Neurological exam: PRESENT: alert, awake, oriented to person, oriented to place, oriented to time, oriented to situation, CN II-XII grossly intact. ABSENT: motor sensory deficit Psychiatric exam: PRESENT: appropriate affect, normal mood. ABSENT: homicidal ideation, suicidal ideation Results Laboratory Results: 10/22/19 04:35 10/22/19 04:35 10/16/19 03:15 Troponin I < 0.012 Impressions: Lower Extremity MRI 10/16/19 00:00 IMPRESSION: Osteomyelitis distal 3rd phalanx. Foot X-Ray 10/16/19 02:53 IMPRESSION: Swelling/cellulitis of the left foot. Bony demineralization with interval worsening. Else, multifocal deformities of the left forefoot without suspicious interval changes relative to prior radiographs from February 2017. Consider MRI surveillance. Chest X-Ray 10/16/19 02:54 IMPRESSION: No acute disease. Assessment and Plan - Diagnosis (1) Diabetic ulcer of left foot Qualifiers: Diabetic foot ulcer location: other Diabetes mellitus type: type 2 Non- pressure ulcer stage: with other severity Qualified Code(s): E11.621 - Type 2 diabetes mellitus with foot ulcer; L97.528 - Non-pressure chronic ulcer of other part of left foot with other specified severity Is this a current diagnosis for this admission?: Yes (2) Hypoglycemia Is this a current diagnosis for this admission?: Yes (3) Hyponatremia Is this a current diagnosis for this admission?: Yes (4) Osteomyelitis Qualifiers: Osteomyelitis location: foot Laterality: left Is this a current diagnosis for this admission?: Yes (5) Cellulitis of left foot Is this a current diagnosis for this admission?: Yes - Plan Summary Summary: 10/20/2019 Vital signs are stable patient is afebrile pulse is 70 blood pressure 124/41 O2 sat 98% on room air White blood cell count remains normal 6600 Patient was admitted with a sodium of 128 today it is 124 Potassium is normal 4.1 renal functions are normal A1C on admission was 5.7 Wound cultures growing out Pseudomonas and E. coli, sensitive to most antibiotics Patient currently on IV vancomycin and Zosyn, IV antibiotics will be discontinued on the and patient will be switched over to Levaquin for 2 weeks. Patient ambulated with a walker and physical therapy assistance 50 feet Patient has a port in the right anterior chest wall from a diagnosis of melanoma 2 years ago Anticipate discharge on the or . Patient will need home health 10/21/2019 Patient and his are very pleasant patient is asking when he will be able to go home. Told him I will switch him over to p.o. antibiotics on Saturday and discharge him on Saturday Recheck labs tomorrow. I put an order in for discharge planning for home health, wound care, therapy, Occupational Therapy We have discussed patient in CAPS rounds today. 10/22/2019 Patient awake alert at the bedside Vital signs are stable CBC and electrolytes are normal Patient growing out Pseudomonas and E. coli from his wound [facility] will be the last day of his IV antibiotics and I will switch him over to p.o. Levaquin for discharge on Saturday Home health will assist with wound care and dressing changes 10/23/2019 Patient is standing up at the bedside appears to be in no distress And is ready to be discharged home tomorrow on p.o. Levaquin. is ready to take him home. Discharge planning has verified that all of his needs will be met Patient's labs are stable as well as his vital signs. - Time Time Spent with patient: 15-24 minutes
[2019-10-24] MEDS: PIPERACILLIN SODIUM/TAZOBACTAM 3.375 GM in NORMAL SALINE 100 ML IV SCH (06:00)
[2019-10-24] MEDS: GABAPENTIN 400 MG CAPSULE PO SCH (09:12)
[2019-10-24] MEDS: EZETIMIBE 10 MG TABLET PO SCH (09:13)
[2019-10-24] MEDS: METOPROLOL SUCCINATE 50 MG TAB.SR.24H PO SCH (09:13)
[2019-10-24] MEDS: DABIGATRAN ETEXILATE 150 MG CAPSULE PO SCH (09:13)
[2019-10-24] MEDS: MULTIVITAMIN TABLET PO SCH (09:13)
[2019-10-24] MEDS: DOCUSATE SODIUM 100 MG CAPSULE PO SCH (09:15)
[2019-10-24 10:44] VITALS: BP 110/50
== END 2019-10-24 11:40 | disposition home health service (06) | DRG 617 ==
LOC: ER 21:28 → EH 10-16 05:30 → 3W 10-16 06:49
PROVIDERS: ADMIT Internal Medicine; ATTEND Internal Medicine
PROC: 0Y6U0Z3 Detachment at Left 3rd Toe, Low, Open Approach (ICD-10-PCS; principal; 2019-10-17 15:30)
DX: E11.621 Type 2 diabetes mellitus with foot ulcer (principal); E87.1 Hypo-osmolality and hyponatremia; L97.528 Non-pressure chronic ulcer of other part of left foot with other specified severity; L03.116 Cellulitis of left lower limb; E11.649 Type 2 diabetes mellitus with hypoglycemia without coma; E78.5 Hyperlipidemia, unspecified; I48.0 Paroxysmal atrial fibrillation; E11.610 Type 2 diabetes mellitus with diabetic neuropathic arthropathy; I10 Essential (primary) hypertension; E78.00 Pure hypercholesterolemia, unspecified; B96.5 Pseudomonas (aeruginosa) (mallei) (pseudomallei) as the cause of diseases classified elsewhere; B96.20 Unspecified Escherichia coli [E. coli] as the cause of diseases classified elsewhere; B95.2 Enterococcus as the cause of diseases classified elsewhere; Z85.821 Personal history of Merkel cell carcinoma; Z87.891 Personal history of nicotine dependence; Z88.8 Allergy status to other drugs, medicaments and biological substances; Z83.3 Family history of diabetes mellitus; Z82.49 Family history of ischemic heart disease and other diseases of the circulatory system; Z85.820 Personal history of malignant melanoma of skin; Z86.73 Personal history of transient ischemic attack (TIA), and cerebral infarction without residual deficits
CPT/HCPCS: 01480; 36415; 71045; 80048; 80053; 80202; 81001; 82565; 82962; 83036; 83605; 83735; 83930; 83935; 84484; 85025; 85652; 86140; 87040; 87070; 87077; 87186; 87205; 88305; 88311; 93005; 93010; 94640; 94799; 99285; J0131; J0692; J1885; J1940; J2250; J2543; J2704; J3010; J3370; J3490; J7030; J7042; J7050; J7060; J7620

== ENCOUNTER 2019-11-24 02:03 | Inpatient (IN) | payer MEDICARE, OTHER ==
[2019-11-24] MEDS ORDERED: ACETAMINOPHEN 325 MG TABLET PO ONE (02:23)
--- NOTE | 2019-11-24 02:36 | ER Document Report ---
ED Fever - General Chief Complaint: Pain All Over Stated Complaint: FEVER Time Seen by Provider: 11/24/19 02:27 Notes: Patient is an 79-year-old male that comes to the emergency department for chief complaint of fever, weakness, congested cough. He states he has been sick for almost a week but much worse tonight with spiking fever of 102.5 at home. He was found by EMS to have a fever of 103 F and an initial oxygen saturation in the low 80s. Hypoxia resolved with initiation of 2 L nasal cannula. Patient has a history of melanoma status post surgery and states he is currently on chemotherapy, cannot member his oncologist's name. He also has a history of type 2 diabetes, atrial fibrillation on Pradaxa and metoprolol, and hypertension . He denies history of NM, CHF, COPD, asthma. came to bedside, states he is currently on chemotherapy with Dr. Mcbride, here locally. Patient is full code. TRAVEL OUTSIDE OF THE [place] IN LAST 30 DAYS: No - Related Data Allergies/Adverse Reactions: atorvastatin calcium [From Lipitor] Allergy (Mild, Verified 01/23/16 20:33) Hives Past Medical History - General Information source: Patient, Relative - Social History Smoking Status: Former Smoker Frequency of alcohol use: None Drug Abuse: None Lives with: Family Family History: DM, Hypertension Patient has suicidal ideation: No Patient has homicidal ideation: No - Past Medical History Cardiac Medical History: Reports: Hx Atrial Fibrillation, Hx Hypercholesterolemia, Hx Hypertension Denies: Hx Congestive Heart Failure, Hx Coronary Artery Disease, Hx Heart Attack, Hx Peripheral Vascular Disease, Hx Heart Murmur Pulmonary Medical History: Denies: Hx Asthma, Hx Bronchitis, Hx COPD, Hx Pneumonia, Hx Tuberculosis Neurological Medical History: Reports: Hx Cerebrovascular Accident. Denies: Hx Seizures, Hx Parkinson's Disease Endocrine Medical History: Reports: Hx Diabetes Mellitus Type 2. Denies: Hx Graves' Disease, Hx Hyperthyroidism, Hx Hypothyroidism Malignancy Medical History: Denies Hx Leukemia GI Medical History: Denies: Hx Crohn's Disease, Hx Gastroesophageal Reflux Disease, Hx Hepatitis, Hx Hiatal Hernia, Hx Irritable Bowel, Hx Liver Failure, Hx Pancreatitis, Hx Ulcer Musculoskeletal Medical History: Denies Hx Arthritis, Denies Hx Fibromyalgia, Denies Hx Multiple Sclerosis, Denies Hx Muscular Dystrophy, Denies Hx Systemic Lupus Erythematosus Psychiatric Medical History: Denies: Hx Dementia, Hx Depression Traumatic Medical History: Denies: Hx Fractures Infectious Medical History: Denies: Hx Hepatitis, Hx HIV Past Surgical History: Reports: Hx Cholecystectomy, Hx Orthopedic Surgery - RLE. Denies: Hx Appendectomy, Hx Bowel Surgery, Hx Colostomy, Hx Coronary Artery Bypass Graft, Hx Gastric Bypass Surgery, Hx Herniorrhaphy, Hx Open Heart Surgery, Hx Pacemaker, Hx Tonsillectomy - Immunizations Hx Diphtheria, Pertussis, Tetanus Vaccination: No Hx Pneumococcal Vaccination: 09/30/12 Review of Systems - Review of Systems Constitutional: See HPI EENT: No symptoms reported Cardiovascular: No symptoms reported Respiratory: See HPI Gastrointestinal: No symptoms reported Genitourinary: No symptoms reported Male Genitourinary: No symptoms reported Musculoskeletal: No symptoms reported Skin: No symptoms reported Hematologic/Lymphatic: No symptoms reported Neurological/Psychological: No symptoms reported Physical Exam - Vital signs Vitals: Resp 24 H 11/24/19 02:09 - Notes Notes: GENERAL: Alert and responsive but very ill-appearing HEAD: Normocephalic, atraumatic. EYES: Pupils equal, round, and reactive to light. Extraocular movements intact. ENT: Oral mucosa very dry, tongue midline. Oropharynx unremarkable. Airway patent. Nares patent, no nasal septal hematoma NECK: Full range of motion. Supple. Trachea midline. LUNGS: Rhonchi in both midlung and lower lung airspaces. Congested coughing episodes. No tachypnea or respiratory distress HEART: Irregularly irregular ABDOMEN: Soft, non-tender. Non-distended. GENITOURINARY: No swelling, tenderness, or concerning findings EXTREMITIES: Moves all 4 extremities spontaneously. No edema, normal radial and dorsalis pedis pulses bilaterally. No cyanosis. BACK: no cervical, thoracic, lumbar midline tenderness. No saddle anesthesia, normal distal neurovascular exam. Moves all extremities in full range of motion. NEUROLOGICAL: Alert and oriented x3. Normal speech. Cranial nerves II through XII grossly intact. PSYCH: Normal affect, normal mood. SKIN: Flushed and hot Course - Re-evaluation Re-evalutation: Patient febrile, very ill-appearing, has rhonchi in the lungs, congested cough. He is borderline tachycardic with chronic atrial fibrillation. is also reporting that he is on therapy for melanoma. I suspect patient is septic from pneumonia but he is not currently in septic shock. Work-up pending. Initiated IV fluids, broad-spectrum antibiotics with cefepime instead of Zosyn because of possible chemotherapy. Patient is doing well on nasal cannula even though he gets hypoxic into the 80s without it. 2 peripheral IVs placed, patient has received antibiotics and IV fluids, received fever treatment and fever started going down but came back up again. Patient remains ill-appearing. Chest x-ray indicates pneumonia, CBC shows leukocytosis at greater than 22,000 with bandemia at 7% left shift. Cultures pending. Urinalysis nonspecific. Lactic acid is 3, troponin 0.3. Patient was hypoxic initially in the 80s per EMS, I suspect this is demand and patient's age, he has not had any chest pain. He denies history of NM or stents. Patient has been discussed with Dr. Klein. I called and spoke with Dr. Mcbride, she reports patient is most likely on immunotherapy and recommends Solu-Cortef, request consult be placed, I placed 1. I did discuss with Dr. Christy, hospitalist, he states patient is too ill and will need to go to the ICU. On reevaluation patient has started to have hypotension, blood pressure is in the low 90s and maps have dropped below 65. We did confirm this with a manual blood pressure. I discussed with and patient. Patient is full code. Discussed with Dr. Klein. Femoral line was placed because patient is on Prad axa and has a port. I called and spoke with on-call for ICU, Carolina Engle, she came and evaluated the patient, patient has been accepted to the ICU. 11/24/19 08:24 - Vital Signs Vital signs: Temp Pulse Resp BP Pulse Ox 99.0 F 20 98/51 L 97 11/24/19 08:01 11/24/19 08:01 11/24/19 08:00 11/24/19 08:01 - Laboratory Result Diagrams: 11/24/19 02:40 11/24/19 02:40 Laboratory results interpreted by me: 11/24/19 11/24/19 11/24/19 02:40 02:40 02:40 WBC 22.8 H RBC 3.55 L Hgb 11.4 L Hct 32.8 L Band Neutrophils % 7 H Monocytes % (Manual) 1 L Abs Neuts (Manual) 19.4 H PT 23.5 H Sodium 127.3 L Chloride 94 L BUN 26 H Glucose 125 H Lactic Acid Alkaline Phosphatase 130 H Total Protein 5.8 L Albumin 3.0 L 11/24/ 02:40 WBC RBC Hgb Hct Band Neutrophils % Monocytes % (Manual) Abs Neuts (Manual) PT Sodium Chloride BUN Glucose Lactic Acid 3.0 H Alkaline Phosphatase Total Protein Albumin Procedures - Central Line left femoral Consent obtained: Yes Central line pre-insertion: Sterile PPE donned, Chloraprep applied, Sterile drapes applied Central line lumen type: Triple Anesthetic type: 1% Lidocaine mL's of anesthesia: 4 Ultrasound guided: Yes Line secured with sutures: Yes Central line post-insertion: Blood return from lumens, Biopatch applied, Sutured, Sterile dressing applied Number of attempts: 2 - right side would not thread Complications: No Notes: Initially I attempted on the right side, however even though access to the right femoral vein was easily obtained the wire would not advance past 5 cm. I suspect there were calcifications. This was aborted, pressure was applied, this stopped bleeding without difficulty. Dressing was placed. After this patient consented for this to be tried on the other side, I did not try internal jugular because of patient being on Pradaxa and having a port. Left side accessed easily with no complications. Critical Care Note - Critical Care Note Total time excluding time spent on procedures (mins): 45 - Septic shock, immunocompromised, hypoxia, pneumonia Comments: Please allow 45 minutes of critical care time for evaluation and management of patient of acutely ill patient requiring ICU hospitalization. Patient with septic shock, hypoxia, immunocompromise. Interventions including IV fluid resuscitation, broad-spectrum antibiotics, fever treatment, oxygen, steroids. Time spent consulting oncology, time spent performing multiple re-evaluations and discussion with family, time spent admitting to the ICU. Discharge - Discharge Clinical Impression: Septic shock, Hypoxia Pneumonia Qualifiers: Pneumonia type: due to unspecified organism Laterality: bilateral Lung loc ation: lower lobe of lung Qualified Code(s): J18.9 - Pneumonia, unspecified organism Hypotension Qualifiers: Hypotension type: unspecified hypotension type Qualified Code(s): I95.9 - Hyp otension, unspecified Fever Qualifiers: Fever type: unspecified Qualified Code(s): R50.9 - Fever, unspecified Melanoma Qualifiers: Melanoma location: unspecified site Qualified Code(s): C43.9 - Malignant melanoma of skin, unspecified Condition: Serious Disposition: ADMITTED INPATIENT Admitting Provider: Carolina Engle NP Unit Admitted: ICU
[2019-11-24] MEDS ORDERED: NORMAL SALINE IV ONE (02:42)
[2019-11-24] MEDS ORDERED: LIDOCAINE 2% URO-JET 5 ML KIT MM ONE (02:42)
[2019-11-24] MEDS ORDERED: CEFEPIME INJ 1 GM VIAL IM ONE (02:42)
[2019-11-24] MEDS ORDERED: VANCOMYCIN HCL INJ 1000 MG VIAL IV ONE (02:42)
[2019-11-24 02:53] LABS: VENOUS BLOOD BASE EXCESS 2.1 mmol/L; VENOUS BLOOD HCO3 28.5 mmol/L (20-32); VENOUS BLOOD PCO2 52.4 mmHg (35-63); VENOUS BLOOD PH 7.35 (7.30-7.42)
[2019-11-24] MEDS ORDERED: CEFEPIME 2 GM/D5W RTU 2 GM/50 ML RTUPB IV ONE (02:57)
[2019-11-24 02:58] LABS: HEMATOCRIT 32.8 % (37.9-51.0); HEMOGLOBIN 11.4 g/dL (13.5-17.0); MEAN CORPUSCULAR HEMOGLOBIN 32.1 pg (27.0-33.4); MEAN CORPUSCULAR HGB CONC 34.8 g/dL (32.0-36.0); MEAN CORPUSCULAR VOLUME 92 fl (80-97); PLATELET COUNT 348 10^3/uL (150-450); RED BLOOD COUNT 3.55 10^6/uL (4.35-5.55); RED CELL DISTRIBUTION WIDTH 13.1 % (11.5-14.0); WHITE BLOOD COUNT 22.8 10^3/uL (4.0-10.5)
[2019-11-24 03:20] LABS: INTERNATIONAL RATION (INR) 2.06; PROTHROMBIN TIME 23.5 SEC (11.4-15.4)
[2019-11-24 03:22] LABS: ABSOLUTE MONOCYTES # (MANUAL) 0.2 10^3/uL (0.1-1.4); BAND NEUTROPHILS % (MANUAL) 7 % (3-5); BASOPHILS % (MANUAL) 0 % (0-2); EOSINOPHILS % (MANUAL) 1 % (0-6); LYMPHOCYTES % (MANUAL) 13 % (13-45); MONOCYTES % (MANUAL) 1 % (3-13); SEGMENTED NEUTROPHILS % (MAN) 78 % (42-78); TOTAL CELLS COUNTED 100
[2019-11-24 03:23] LABS: OVALOCYTES SLIGHT; PLATELET COMMENT ADEQUATE; POIKILOCYTOSIS SLIGHT; TOXIC GRANULATION SLIGHT
[2019-11-24] MEDS ORDERED: VANCOMYCIN HCL INJ 1000 MG VIAL ONE (03:31)
--- NOTE | 2019-11-24 03:34 | RADIOLOGY REPORT (SQ) ---
EXAM DESCRIPTION: XR CHEST 1 VIEW COMPLETED DATE/TME: 11/24/2019 02:23 CLINICAL HISTORY: 79 years, Male, cough/sob COMPARISON: October 16, 2019 NUMBER OF VIEWS: Single TECHNIQUE: AP portable upright 0246 hours LIMITATIONS: None. FINDINGS: Cardiomediastinal silhouette is enlarged but stable. Patchy airspace disease at the bases, new from prior. No significant fluid. No pneumothorax. Port catheter tip is in good position. IMPRESSION: Patchy airspace disease at the bases, new from prior copyright 2011 [employer]- All Rights Reserved
[2019-11-24 03:45] LABS: ALKALINE PHOSPHATASE 130 U/L (38-126); ANION GAP 8 (5-19); ASPARTATE AMINO TRANSFERASE 41 U/L (17-59); BILIRUBIN,DIRECT 0.3 mg/dL (0.0-0.4); BILIRUBIN,TOTAL 1.3 mg/dL (0.2-1.3); BLOOD UREA NITROGEN 26 mg/dL (7-20); CALCIUM 8.4 mg/dL (8.4-10.2); CARBON DIOXIDE 25 mmol/L (22-30); CHLORIDE 94 mmol/L (98-107); GLUCOSE 125 mg/dL (75-110); POTASSIUM 4.9 mmol/L (3.6-5.0); TOTAL PROTEIN 5.8 g/dL (6.3-8.2)
[2019-11-24] MEDS ORDERED: IBUPROFEN 600 MG TABLET PO ONE (04:14)
[2019-11-24] MEDS ORDERED: HYDROCORTISONE SOD SUCCINATE INJ/PF 100 MG/2 ML SDV IV ONE (05:06)
[2019-11-24 06:46] LABS: A TYPE INFLUENZA AG NEGATIVE (NEGATIVE); B INFLUENZA AG NEGATIVE (NEGATIVE)
--- NOTE | 2019-11-24 08:41 | PDOC CONSULTATION ---
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 He has been doing well with this treatment for the past year. His most recent dose was 11-11-2019. He was just discharged from [facility] on 11/03/2019 after treatment for cellulitis in his toe, thought to be due to his DM. Today, he states that 2 days prior, he developed weakness in his legs and hands. He had a fever yesterday as well as joint pain. He denies any chest pain, dyspnea, or cough. On presentation to the ED, he had a temperature of 101.6. CXR showed some consolidation, but no obvious pneumonia. His labs are fairly stable, with elevated WBC count. Past Medical History Cardiac Medical History: Reports: Atrial Fibrillation, Hyperlipidema, Hypertension Denies: Congestive Heart Failure, Coronary Artery Disease, Myocardial Infarction, Peripheral Vascular Disease, Heart Murmur Pulmonary Medical History: Denies: Asthma, Bronchitis, Chronic Obstructive Pulmonary Disease (COPD), Pneumonia, Tuberculosis Neurological Medical History: Denies: Seizures Endocrine Medical History: Reports: Diabetes Mellitus Type 2 Denies: Hyperthyroidism, Hypothyroidism Malignancy Medical History: Denies: Leukemia GI Medical History: Denies: Crohn's Disease, Gastroesophageal Reflux Disease, Hepatitis, Hiatal Hernia Musculoskeltal Medical History: Denies: Arthritis, Fibromyalgia Psychiatric Medical History: Denies: Dementia, Depression Hematology: Denies: Anemia, Hemophilia, Sickle Cell Disease Infectious Medical History: Denies: HIV Past Surgical History Past Surgical History: Reports: Cholecystectomy, Orthopedic Surgery - RLE Denies: Appendectomy, Colostomy, Coronary Artery Bypass Graft, Gastric Bypass Surgery, Herniorrhaphy, Pacemaker, Tonsillectomy Social History Lives with: Family Smoking Status: Former Smoker Frequency of Alcohol Use: Occasional Hx Recreational Drug Use: No Drugs: None Hx Prescription Drug Abuse: No Family History Parental Family History Reviewed: Yes - Mother with RA. Father of CVA age 75. Children Family History Reviewed: No Sibling(s) Family History Reviewed.: Yes - One sister with ALS, another with an unknown cancer. Medication/Allergy Allergies/Adverse Reactions: atorvastatin calcium [From Lipitor] Allergy (Mild, Verified 01/23/16 20:33) Hives Review of Systems Constitutional: PRESENT: fever(s). ABSENT: headache(s) Eyes: ABSENT: visual disturbances Ears: ABSENT: hearing changes Nose, Mouth, and Throat: ABSENT: sore throat Cardiovascular: ABSENT: chest pain Respiratory: ABSENT: cough, dyspnea Gastrointestinal: ABSENT: constipation, nausea Genitourinary: ABSENT: dysuria Musculoskeletal: PRESENT: muscle weakness Integumentary: ABSENT: rash Neurological: PRESENT: weakness Hematologic/Lymphatic: ABSENT: easy bleeding Physical Exam Vital Signs: Temp Pulse Resp BP Pulse Ox 99.0 F 20 98/51 L 97 11/24/19 08:01 11/24/19 08:01 11/24/19 08:00 11/24/19 08:01 Intake & Output 11/23/19 11/24/19 11/25/19 06:59 06:59 06:59 Intake Total 2520 Output Total 350 Balance 2520 -350 Weight 82.3 kg General appearance: PRESENT: no acute distress, well-developed, well-nourished Exam: 79 year old gentleman Head exam: PRESENT: atraumatic, normocephalic Eye exam: PRESENT: EOMI Mouth exam: PRESENT: dry mucosa, tongue midline Neck exam: ABSENT: lymphadenopathy, tenderness Respiratory exam: PRESENT: unlabored, other - bibasilar crackles. Cardiovascular exam: PRESENT: bradycardia, RRR GI/Abdominal exam: PRESENT: soft. ABSENT: tenderness Extremities exam: PRESENT: other - trace edema with chronic skin changes. Neurological exam: PRESENT: alert, awake Psychiatric exam: PRESENT: appropriate affect Skin exam: PRESENT: normal color Results Laboratory Results: 11/24/19 02:40 11/24/19 02:40 11/24/19 11/24/19 11/24/19 02:40 02:40 02:40 WBC 22.8 H RBC 3.55 L Hgb 11.4 L Hct 32.8 L MCV 92 MCH 32.1 MCHC 34.8 RDW 13.1 Plt Count 348 Seg Neutrophils % Not Reportable VBG pH 7.35 VBG pCO2 52.4 VBG HCO3 28.5 VBG Base Excess 2.1 Sodium 127.3 L Potassium 4.9 Chloride 94 L Carbon Dioxide 25 Anion Gap 8 BUN 26 H Creatinine 0.96 Est GFR ( Amer) > 60 Glucose 125 H Lactic Acid Calcium 8.4 Total Bilirubin 1.3 AST 41 Alkaline Phosphatase 130 H Total Protein 5.8 L Albumin 3.0 L 11/24/19 11/24/19 02:40 06:00 WBC RBC Hgb Hct MCV MCH MCHC RDW Plt Count Seg Neutrophils % VBG pH VBG pCO2 VBG HCO3 VBG Base Excess Sodium Potassium Chloride Carbon Dioxide Anion Gap BUN Creatinine Est GFR ( Amer) Glucose Lactic Acid 3.0 H 1.7 Calcium Total Bilirubin AST Alkaline Phosphatase Total Protein Albumin 11/24/19 02:40 Troponin I 0.329 Impressions: Chest X-Ray 11/24/19 02:23 IMPRESSION: Patchy airspace disease at the bases, new from prior copyright 2010 [employer]- All Rights Reserved Status: Image reviewed by me Assessment & Plan - Diagnosis (1) Fever Qualifiers: Fever type: unspecified Qualified Code(s): R50.9 - Fever, unspecified Is this a current diagnosis for this admission?: Yes Plan: Keytruda is known to cause fevers, but he has been taking this medication for about a year without chronic fevers. Therefore, I believe this is more likely infectious. (2) Abril cell cancer Is this a current diagnosis for this admission?: Yes Plan: Keytruda will be held during admission. (3) Paroxysmal atrial fibrillation Is this a current diagnosis for this admission?: Yes Plan: On Pradaxa. (4) Type 2 diabetes mellitus with diabetic neuropathy Is this a current diagnosis for this admission?: Yes (5) Weakness Is this a current diagnosis for this admission?: Yes - Plan Summary Plan Summary: Patient was discussed with ED physician as well as legal support specialist today. Although I am not convinced this is pneumonia, I agree with empiric antibiotics while awaiting blood cultures. His Flu screen was negative. I will continue to follow him with you.
--- NOTE | 2019-11-24 08:47 | PDOC CRITICAL CARE PROG REPORT ---
General Date:: 11/24/19 Hospital Day:: 1 Resuscitation Status: Full Code Events in the past 12 to 24 Hours:: Cough, fever, dehydration, possible PNA. Review of systems relevant to events:: Respiratory. CV. Reason for ICU Addmission:: Evaluation . - Medications: Medications reviewed and adjusted accordingly: Yes Vasopressors:: None Sedation:: None Physical Exam Vital Signs: Temp Pulse Resp BP Pulse Ox 99.0 F 20 98/51 L 97 11/24/19 08:01 11/24/19 08:01 11/24/19 08:00 11/24/19 08:01 Intake & Output 11/23/19 11/24/19 11/25/19 06:59 06:59 06:59 Intake Total 2520 Output Total 350 Balance 2520 -350 Weight 82.3 kg Weight/Height Weight 82.3 kg General appearance: PRESENT: no acute distress, well-developed, well-nourished Head exam: PRESENT: atraumatic, normocephalic Eye exam: PRESENT: conjunctiva pink, EOMI, PERRLA. ABSENT: scleral icterus Ear exam: PRESENT: normal external ear exam Mouth exam: PRESENT: dry mucosa Respiratory exam: PRESENT: clear to auscultation jamila, crackles, decreased breath sounds. ABSENT: rales, rhonchi, wheezes Cardiovascular exam: PRESENT: RRR. ABSENT: diastolic murmur, rubs, systolic murmur Vascular exam: PRESENT: normal capillary refill GI/Abdominal exam: PRESENT: normal bowel sounds, soft. ABSENT: distended, guarding, mass, organolmegaly, rebound, tenderness Rectal exam: PRESENT: deferred Extremities exam: PRESENT: full ROM, +1 edema, other - Mild erythema to R lower leg.. ABSENT: calf tenderness, clubbing, pedal edema Neurological exam: PRESENT: alert, awake, oriented to person, oriented to place, oriented to time, oriented to situation, CN II-XII grossly intact. ABSENT: motor sensory deficit Skin exam: PRESENT: dry, intact, warm. ABSENT: cyanosis, rash Laboratory/Radiographs Laboratory Results: 11/24/19 02:40 11/24/19 02:40 11/24/19 11/24/19 11/24/19 02:40 02:40 02:40 WBC 22.8 H RBC 3.55 L Hgb 11.4 L Hct 32.8 L MCV 92 MCH 32.1 MCHC 34.8 RDW 13.1 Plt Count 348 Seg Neutrophils % Not Reportable VBG pH 7.35 VBG pCO2 52.4 VBG HCO3 28.5 VBG Base Excess 2.1 Sodium 127.3 L Potassium 4.9 Chloride 94 L Carbon Dioxide 25 Anion Gap 8 BUN 26 H Creatinine 0.96 Est GFR ( Amer) > 60 Glucose 125 H Lactic Acid Calcium 8.4 Total Bilirubin 1.3 AST 41 Alkaline Phosphatase 130 H Total Protein 5.8 L Albumin 3.0 L 11/24/19 11/24/19 02:40 06:00 WBC RBC Hgb Hct MCV MCH MCHC RDW Plt Count Seg Neutrophils % VBG pH VBG pCO2 VBG HCO3 VBG Base Excess Sodium Potassium Chloride Carbon Dioxide Anion Gap BUN Creatinine Est GFR ( Amer) Glucose Lactic Acid 3.0 H 1.7 Calcium Total Bilirubin AST Alkaline Phosphatase Total Protein Albumin 11/24/19 02:40 Troponin I 0.329 Impressions: Chest X-Ray 11/24/19 02:23 IMPRESSION: Patchy airspace disease at the bases, new from prior copyright 2011 [employer]- All Rights Reserved EKG: Atrial fib-chronic. Rate 98. All labs, radiographs, diagnostic studies and EKGs were personally reviewed: Yes In addition, reports of radiographic and diagnostic studies were read: Yes Assessment and Plan Plan Summary: At this point the patient has a haziness at th R lung base. No hx N/V. CAP or with recent hospitaliztion a hospital induced PNA. Pressure is adequate. Has not changed with [address] Simpson believes he would benefit from steroids. Hydrocortisone ordered. Lactate has normalized overnight. He is still dehydrated. He had a mildly elevated HR and RR WBC 22. On this basis he meets for SIRS. However given his dehydration and relative hypoadrenalism he is not on septic shock. There is no need for ICU intervention at this time. Should this change feel free to reconsult Critical Time Critical Time (minutes): 35 Level of Care: IMCU Anticipated discharge: Home Within: Other - Too soon to tell. -: 1. The care of a critical patient is a dynamic process. This note is a termite control service representative synopsis but static in nature. The timeframe for treatments given in order is not necessarily the actual time these treatments may have been done. 2. This patient requires critical care secondary to ongoing requirements for therapy not offered or safe outside the critical care environment. Transfer to a lower level of care will result in altered life or limb morbidity and mortality. 3. Multidisciplinary rounds completed. 4. ABCDE bundle addressed.
[2019-11-24] MEDS ORDERED: ONDANSETRON HCL INJ/PF 4 MG/2 ML SDV IV PRN (11:11)
[2019-11-24] MEDS ORDERED: IPRATROPIUM/ALBUTEROL 0.5-2.5 MG/3 ML AMPUL NEB PRN (11:11)
[2019-11-24] MEDS ORDERED: CARBOXYMETHYLCELLULOSE SOD 0.5% 0.4 ML DROPERETTE OU PRN (11:17)
[2019-11-24] MEDS ORDERED: GLUCAGON,HUMAN RECOMB 1 MG INJ IM PRN (11:22)
[2019-11-24] MEDS ORDERED: DEXTROSE 50%-WATER 25 GM/50 ML DISP.SYRIN IV PRN ×2 (11:22)
[2019-11-24] MEDS ORDERED: DEXTROSE 40% GEL 15 GM TUBE PO PRN ×2 (11:22)
--- NOTE | 2019-11-24 12:35 | PDOC H&P ---
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 fib, who presents to the hospital today after expressive fever and increased weakness at home. Patient reports that patient has been extremely fatigued since getting home. He has also been having persistence of cough since last hospitalization though without significant purulence of expectoration. Patient did have a measured fever at home and several documented fevers in the ER on presentation. Initially patient was hypotensive and received about 2 L of fluids. ICU was contacted for admission and accepted admission this morning but later on upon evaluation by marketing and promotions manager Dr Bolton was deemed not to require ICU level of care and as such we directed to the hospitalist service. Patient currently denies any headaches or dizziness. His reports that he had 2 episodes of loose bowel movements today. Past Medical History Cardiac Medical History: Reports: Atrial Fibrillation, Hyperlipidema, Hypertension Denies: Congestive Heart Failure, Coronary Artery Disease, Myocardial Infarction, Peripheral Vascular Disease, Heart Murmur Pulmonary Medical History: Denies: Asthma, Bronchitis, Chronic Obstructive Pulmonary Disease (COPD), Pneumonia, Tuberculosis Neurological Medical History: Denies: Seizures Endocrine Medical History: Reports: Diabetes Mellitus Type 2 Denies: Hyperthyroidism, Hypothyroidism Malignancy Medical History: Denies: Leukemia GI Medical History: Denies: Crohn's Disease, Gastroesophageal Reflux Disease, Hepatitis, Hiatal Hernia Musculoskeltal Medical History: Denies: Arthritis, Fibromyalgia Psychiatric Medical History: Denies: Dementia, Depression Hematology: Denies: Anemia, Hemophilia, Sickle Cell Disease Infectious Medical History: Denies: HIV Past Surgical History Past Surgical History: Reports: Cholecystectomy, Orthopedic Surgery - RLE Denies: Appendectomy, Colostomy, Coronary Artery Bypass Graft, Gastric Bypass Surgery, Herniorrhaphy, Pacemaker, Tonsillectomy Social History Lives with: Family Smoking Status: Former Smoker Frequency of Alcohol Use: Occasional Hx Recreational Drug Use: No Drugs: None Hx Prescription Drug Abuse: No - Advance Directive Resuscitation Status: Do Not Resuscitate - Confirmed DNR/DNI status voiced by patient in presence of patient's Family History Family History: DM, Hypertension Parental Family History Reviewed: Yes Children Family History Reviewed: NA Sibling(s) Family History Reviewed.: NA Medication/Allergy Home Medications: Acetaminophen [Tylenol 325 mg Tablet] 650 mg PO Q4HP PRN 11/24/19 Dabigatran Etexilate Mesylate [Pradaxa 150 mg Capsule] 150 mg PO Q12 11/24/19 Ezetimibe [Zetia 10 mg Tablet] 10 mg PO QAM 11/24/19 Gabapentin [Neurontin 400 mg Capsule] 400 mg PO Q8 11/24/19 Lisinopril [Zestril] 40 mg PO QAM 11/24/19 Metoprolol Succinate [Toprol Xl] 100 mg PO QAM 11/24/19 Multivitamin [Multiple Vitamins] 1 tab PO QAM 11/24/19 Sitagliptin Phosphate [Januvia 50 mg Tablet] 100 mg PO QAM 11/24/19 Triamcinolone Acetonide [Aristocort 0.5% Cream 15 gm] 1 applic TOP TID 11/24/19 Allergies/Adverse Reactions: atorvastatin calcium [From Lipitor] Allergy (Mild, Verified 01/23/16 20:33) Hives Review of Systems Constitutional: PRESENT: fever(s), weakness. ABSENT: chills Eyes: ABSENT: visual disturbances Nose, Mouth, and Throat: ABSENT: headache(s) Cardiovascular: ABSENT: chest pain Respiratory: PRESENT: cough, dyspnea - Occasionally. ABSENT: sputum Gastrointestinal: PRESENT: diarrhea. ABSENT: abdominal pain, nausea, vomiting Musculoskeletal: PRESENT: deformity Integumentary: ABSENT: diaphoresis Neurological: PRESENT: weakness - Generalized muscle. ABSENT: dizziness Endocrine: ABSENT: polyuria Physical Exam Vital Signs: Temp Pulse Resp BP Pulse Ox 98.5 F 19 104/49 L 98 11/24/19 11:01 11/24/19 11:01 11/24/19 11:00 11/24/19 11:01 Intake & Output 11/23/19 11/24/19 11/25/19 06:59 06:59 06:59 Intake Total 2520 Output Total 350 Balance 2520 -350 Weight 82.3 kg General appearance: PRESENT: no acute distress, cooperative Head exam: PRESENT: normocephalic Mouth exam: PRESENT: neck supple Neck exam: ABSENT: JVD Respiratory exam: PRESENT: rhonchi, symmetrical, unlabored. ABSENT: tachypnea, wheezes Cardiovascular exam: PRESENT: RRR, +S1, +S2. ABSENT: tachycardia GI/Abdominal exam: PRESENT: hernia - Reducible ventral and periumbilical, normal bowel sounds, soft, tenderness. ABSENT: firm, guarding, rebound, rigid Extremities exam: PRESENT: +1 edema, other - No significant erythema or purulence from the amputated site. Deformity of his toes bilaterally.. ABSENT: calf tenderness Neurological exam: PRESENT: alert, awake Psychiatric exam: ABSENT: agitated, anxious Focused psych exam: ABSENT: pressured speech Skin exam: PRESENT: skin tears - Left foot ulcer on the plantar surface Results Laboratory Results: 11/24/19 02:40 11/24/19 02:40 11/24/19 11/24/19 11/24/19 02:40 02:40 02:40 WBC 22.8 H RBC 3.55 L Hgb 11.4 L Hct 32.8 L MCV 92 MCH 32.1 MCHC 34.8 RDW 13.1 Plt Count 348 Seg Neutrophils % Not Reportable VBG pH 7.35 VBG pCO2 52.4 VBG HCO3 28.5 VBG Base Excess 2.1 Sodium 127.3 L Potassium 4.9 Chloride 94 L Carbon Dioxide 25 Anion Gap 8 BUN 26 H Creatinine 0.96 Est GFR ( Amer) > 60 Glucose 125 H Lactic Acid Calcium 8.4 Total Bilirubin 1.3 AST 41 Alkaline Phosphatase 130 H Total Protein 5.8 L Albumin 3.0 L 11/24/19 11/24/19 11/24/19 02:40 06:00 08:30 WBC RBC Hgb Hct MCV MCH MCHC RDW Plt Count Seg Neutrophils % VBG pH VBG pCO2 VBG HCO3 VBG Base Excess Sodium Potassium Chloride Carbon Dioxide Anion Gap BUN Creatinine Est GFR ( Amer) Glucose Lactic Acid 3.0 H 1.7 1.5 Calcium Total Bilirubin AST Alkaline Phosphatase Total Protein Albumin 11/24/19 02:40 Troponin I 0.329 Impressions: Chest X-Ray 11/24/19 02:23 IMPRESSION: Patchy airspace disease at the bases, new from prior copyright 2010 [employer]- All Rights Reserved Assessment and Plan - Diagnosis (1) HCAP (healthcare-associated pneumonia) Is this a current diagnosis for this admission?: Yes Plan: Chest x-ray does show some increased patchy opacities suggestive of pneumonia Given fever, hypotension, severe leukocytosis with bandemia, mild encephalopathy and severe sepsis picture, I will treat broadly for HCAP and cover patient with vancomycin and Zosyn Follow-up blood cultures. Check sputum culture. (2) Fever Qualifiers: Fever type: unspecified Qualified Code(s): R50.9 - Fever, unspecified Is this a current diagnosis for this admission?: Yes Plan: Antibiotics. Potential source is pneumonia. Patient did recently have osteomyelitis and underwent left third toe amputation with deep wound culture growing Pseudomonas, E. coli and enterococcus and discharged on Levaquin. Site of amputation looks to be healing well and without purulence. Continue to monitor in case of diarrhea and the diarrhea persist will check C. difficile. (3) Severe sepsis Is this a current diagnosis for this admission?: Yes Plan: Plan as above. Lactic acid is down trended. Patient has received over 2-1/2 L of fluids. Monitor blood pressures and vital signs closely. Informed by marketing and promotions manager events patient's oncologist like her patient to be on some stress steroids. Has already received 100 hydrocortisone. Will give 50 mg daily for today only. We will add on random cortisol level to initial a.m. labs prior to when steroids was given. (4) Amputation of toe of left foot Is this a current diagnosis for this admission?: Yes Plan: Recent osteomyelitis s/p amputation of left third toe on 10/17/2019 which seems to be healing well. (5) Diabetic ulcer of left foot Qualifiers: Diabetic foot ulcer location: other Diabetes mellitus type: type 2 Non-pressure ulcer stage: with other severity Qualified Code(s): E11.621 - Type 2 diabetes mellitus with foot ulcer; L97.528 - Non-pressure chronic ulcer of other part of left foot with other specified severity Is this a current diagnosis for this admission?: Yes Plan: Wound care (6) Abril cell cancer Is this a current diagnosis for this admission?: Yes Plan: Has been on Keytruda since October last year. Dr. Calvin naik. Will hold while inpatient. (7) Paroxysmal atrial fibrillation Is this a current diagnosis for this admission?: Yes Plan: Hold Toprol-XL for today and resume tomorrow given soft blood pressures today (8) Type 2 diabetes mellitus with diabetic neuropathy Qualifiers: Diabetes mellitus intermodal owner operator truck driver insulin use: without detention use Qualified Code(s): E11.40 - Type 2 diabetes mellitus with diabetic neuropathy, unspecified Is this a current diagnosis for this admission?: Yes Plan: Continue glipizide, Januvia. Sliding scale insulin and Accu-Cheks. (9) Elevated troponin Is this a current diagnosis for this admission?: Yes Plan: Possibly demand perfusion mismatch from current sepsis. EKG not show any new ischemic changes. Trend out. - Time Time Spent with patient: 35 or more minutes
[2019-11-24] MEDS ORDERED: HEPARIN SODIUM,PORCINE/D5W 25,000 UNIT/250 ML RTUINJ IV PRN (13:24)
[2019-11-24] MEDS: GABAPENTIN 100 MG CAPSULE PO SCH ×2 (13:27→22:11)
[2019-11-24] MEDS: PIPERACILLIN SODIUM/TAZOBACTAM 3.375 GM in NORMAL SALINE 100 ML IV SCH ×2 (13:32→22:12)
[2019-11-24] MEDS: TRIAMCINOLONE ACETONIDE 0.5% CREAM 15 GM TOP SCH ×2 (13:34→21:15)
[2019-11-24] MEDS ORDERED: HYDROCORTISONE SOD SUCCINATE INJ/PF 100 MG/2 ML SDV IV SCH (14:00)
[2019-11-24] MEDS ORDERED: PIPERACILLIN/TAZOBACTAM 3.375 GM VIAL IV SCH (14:00)
[2019-11-24] MEDS: NORMAL SALINE 1000 ML 1,000 ML IV PRN (14:47)
[2019-11-24 14:51] LABS: HEMATOCRIT 25.7 % (37.9-51.0); INTERNATIONAL RATION (INR) 2.41; MEAN CORPUSCULAR HEMOGLOBIN 32.5 pg (27.0-33.4); MEAN CORPUSCULAR HGB CONC 35.4 g/dL (32.0-36.0); MEAN CORPUSCULAR VOLUME 92 fl (80-97); PLATELET COUNT 240 10^3/uL (150-450); PROTHROMBIN TIME 26.7 SEC (11.4-15.4); RED CELL DISTRIBUTION WIDTH 13.3 % (11.5-14.0); WHITE BLOOD COUNT 27.3 10^3/uL (4.0-10.5)
[2019-11-24 14:53] LABS: PARTIAL THROMBOPLASTIN TIME 98.1 SEC (23.5-35.8)
[2019-11-24 14:58] LABS: HEMOGLOBIN 9.1 g/dL (13.5-17.0)
[2019-11-24 15:16] LABS: ABSOLUTE LYMPHOCYTES# (MANUAL) 1.9 10^3/uL (0.5-4.7); ABSOLUTE MONOCYTES # (MANUAL) 0.8 10^3/uL (0.1-1.4); BAND NEUTROPHILS % (MANUAL) 4 % (3-5); BASOPHILS % (MANUAL) 0 % (0-2); EOSINOPHILS % (MANUAL) 0 % (0-6); LYMPHOCYTES % (MANUAL) 7 % (13-45); MONOCYTES % (MANUAL) 3 % (3-13); SEGMENTED NEUTROPHILS % (MAN) 86 % (42-78); TOTAL CELLS COUNTED 100
[2019-11-24 15:19] LABS: PLATELET COMMENT ADEQUATE; RBC MORPHOLOGY COMMENT NORMO-CYTIC/CHROMIC; TOXIC GRANULATION SLIGHT
[2019-11-24 15:28] LABS: APPEARANCE,URINE CLOUDY; BILIRUBIN,URINE NEGATIVE (NEGATIVE); COLOR,URINE AMBER; GLUCOSE, URINE NEGATIVE (NEGATIVE); KETONES,URINE TRACE mg/dL (NEGATIVE); LEUKOCYTE ESTERASE,URINE NEGATIVE (NEGATIVE); NITRITE,URINE NEGATIVE (NEGATIVE); PROTEIN,URINE 30 mg/dL (NEGATIVE); URINE SPECIFIC GRAVITY 1.021; UROBILINOGEN,URINE NEGATIVE mg/dL (<2.0)
[2019-11-24] MEDS: INSULIN LISPRO 100 UNIT/ML 3 ML VIAL SUBCUT SCH ×2 (16:19→22:12)
--- NOTE | 2019-11-24 17:10 | EKG REPORT ---
SEVERITY:- ABNORMAL ECG - ATRIAL FIBRILLATION VENTRICULAR PREMATURE COMPLEX LEFT ANTERIOR FASCICULAR BLOCK : Confirmed by: Shey Connolly MD 24-Nov-2019 17:10:00
--- NOTE | 2019-11-24 17:10 | EKG REPORT ---
SEVERITY:- ABNORMAL ECG - ATRIAL FIBRILLATION LEFT AXIS DEVIATION BORDERLINE PROLONGED QT INTERVAL : Confirmed by: Shey Connolly MD 24-Nov-2019 17:09:55
--- NOTE | 2019-11-24 18:58 | PDOC CONSULTATION ---
Consultation Consult Date: 11/24/19 Attending physician:: BERTO ORELLANA Provider Consulted: GUSTAVO KNAPP Consult reason:: Elevated troponin History of Present Illness Admission Date/PCP: 11/24/19 07:13 FERNANDO AYALA MD Patient complains of: Fever History of Present Illness: HAYDEE KHAN is a 79 year old male With the following active problems 1. Diabetes mellitus 2. Abril cell carcinoma-parotid gland 3. Osteomyelitis left toe 4. Atrial fibrillation Patient was brought in with fever and symptoms suggestive of ongoing sepsis. He was started on therapy for healthcare associated pneumonia with broad-spectrum antibiotics. She also received intravenous fluids resuscitation in the emergency room. He is on systemic anticoagulation with dabigatran for atrial fibrillation. Cardiology input was requested after elevated troponin was noted on laboratory measurement. The patient has not endorsed any chest pain. EKG does not show any convincing evidence of myocardial ischemia and shows rate controlled atrial fibrillation. Patient at the present time is quite exhausted. Past Medical History Cardiac Medical History: Reports: Atrial Fibrillation, Hyperlipidema, Hypertension Denies: Congestive Heart Failure, Coronary Artery Disease, Myocardial Infarction, Peripheral Vascular Disease, Heart Murmur Pulmonary Medical History: Denies: Asthma, Bronchitis, Chronic Obstructive Pulmonary Disease (COPD), Pneumonia, Tuberculosis Neurological Medical History: Denies: Seizures Endocrine Medical History: Reports: Diabetes Mellitus Type 2 Denies: Hyperthyroidism, Hypothyroidism Malignancy Medical History: Denies: Leukemia GI Medical History: Denies: Crohn's Disease, Gastroesophageal Reflux Disease, Hepatitis, Hiatal Hernia Musculoskeltal Medical History: Denies: Arthritis, Fibromyalgia Psychiatric Medical History: Denies: Dementia, Depression Hematology: Denies: Anemia, Hemophilia, Sickle Cell Disease Infectious Medical History: Denies: HIV Past Surgical History Past Surgical History: Reports: Cholecystectomy, Orthopedic Surgery - RLE Denies: Appendectomy, Colostomy, Coronary Artery Bypass Graft, Gastric Bypass Surgery, Herniorrhaphy, Pacemaker, Tonsillectomy Social History Lives with: Family Smoking Status: Former Smoker Frequency of Alcohol Use: Occasional Hx Recreational Drug Use: No Drugs: None Hx Prescription Drug Abuse: No - Advance Directive Resuscitation Status: Do Not Resuscitate - Confirmed DNR/DNI status voiced by patient in presence of patient's Family History Family History: DM, Hypertension Parental Family History Reviewed: No - Unable to evaluate family history due to patient condition. Children Family History Reviewed: NA Sibling(s) Family History Reviewed.: NA Medication/Allergy Home Medications: Acetaminophen [Tylenol 325 mg Tablet] 650 mg PO Q4HP PRN 11/24/19 Dabigatran Etexilate Mesylate [Pradaxa 150 mg Capsule] 150 mg PO Q12 11/24/19 Ezetimibe [Zetia 10 mg Tablet] 10 mg PO QAM 11/24/19 Gabapentin [Neurontin 400 mg Capsule] 400 mg PO Q8 11/24/19 Lisinopril [Zestril] 40 mg PO QAM 11/24/19 Metoprolol Succinate [Toprol Xl] 100 mg PO QAM 11/24/19 Multivitamin [Multiple Vitamins] 1 tab PO QAM 11/24/19 Sitagliptin Phosphate [Januvia 50 mg Tablet] 100 mg PO QAM 11/24/19 Triamcinolone Acetonide [Aristocort 0.5% Cream 15 gm] 1 applic TOP TID 11/24/19 Allergies/Adverse Reactions: atorvastatin calcium [From Lipitor] Allergy (Mild, Verified 01/23/16 20:33) Hives Review of Systems ROS unobtainable: Due to mental status, Other - Patient is quite exhausted and ill and is unable to relate review of systems Physical Exam Vital Signs: Temp Pulse Resp BP Pulse Ox 97.4 F 67 18 113/52 L 100 11/24/19 18:46 11/24/19 18:46 11/24/19 18:46 11/24/19 18:46 11/24/19 18:46 Intake & Output 11/23/19 11/24/19 11/25/19 06:59 06:59 06:59 Intake Total 2520 100 Output Total 575 Balance 2520 -475 Weight 82.3 kg General appearance: PRESENT: no acute distress, cooperative, thin Head exam: PRESENT: atraumatic, normocephalic Eye exam: PRESENT: conjunctiva pale, EOMI Mouth exam: PRESENT: neck supple Teeth exam: PRESENT: poor dentation Respiratory exam: PRESENT: decreased breath sounds, symmetrical, unlabored Cardiovascular exam: PRESENT: irregular rhythm, +S1, +S2 Pulses: PRESENT: normal radial pulses GI/Abdominal exam: PRESENT: soft Rectal exam: PRESENT: deferred Musculoskeletal exam: PRESENT: deformity Neurological exam: PRESENT: alert, awake Skin exam: PRESENT: dry, intact, skin tears Results Laboratory Results: 11/24/19 14:40 11/24/19 02:40 11/24/19 11/24/19 11/24/19 02:40 02:40 02:40 WBC 22.8 H RBC 3.55 L Hgb 11.4 L Hct 32.8 L MCV 92 MCH 32.1 MCHC 34.8 RDW 13.1 Plt Count 348 Seg Neutrophils % Not Reportable VBG pH 7.35 VBG pCO2 52.4 VBG HCO3 28.5 VBG Base Excess 2.1 Sodium 127.3 L Potassium 4.9 Chloride 94 L Carbon Dioxide 25 Anion Gap 8 BUN 26 H Creatinine 0.96 Est GFR ( Amer) > 60 Glucose 125 H Lactic Acid Calcium 8.4 Total Bilirubin 1.3 AST 41 Alkaline Phosphatase 130 H Total Protein 5.8 L Albumin 3.0 L Urine Color Urine Appearance Urine pH Ur Specific [place] Urine Protein Urine Glucose (UA) Urine Ketones Urine Blood Urine Nitrite Ur Leukocyte Esterase Urine WBC (Auto) Urine RBC (Auto) 11/24/19 11/24/19 11/24/19 02:40 06:00 08:30 WBC RBC Hgb Hct MCV MCH MCHC RDW Plt Count Seg Neutrophils % VBG pH VBG pCO2 VBG HCO3 VBG Base Excess Sodium Potassium Chloride Carbon Dioxide Anion Gap BUN Creatinine Est GFR ( Amer) Glucose Lactic Acid 3.0 H 1.7 1.5 Calcium Total Bilirubin AST Alkaline Phosphatase Total Protein Albumin Urine Color Urine Appearance Urine pH Ur Specific [place] Urine Protein Urine Glucose (UA) Urine Ketones Urine Blood Urine Nitrite Ur Leukocyte Esterase Urine WBC (Auto) Urine RBC (Auto) 11/24/19 11/24/19 14:40 14:50 WBC 27.3 H RBC 2.80 L Hgb 9.1 L D Hct 25.7 L MCV 92 MCH 32.5 MCHC 35.4 RDW 13.3 Plt Count 240 Seg Neutrophils % Not Reportable VBG pH VBG pCO2 VBG HCO3 VBG Base Excess Sodium Potassium Chloride Carbon Dioxide Anion Gap BUN Creatinine Est GFR ( Amer) Glucose Lactic Acid Calcium Total Bilirubin AST Alkaline Phosphatase Total Protein Albumin Urine Color KIM Urine Appearance CLOUDY Urine pH 5.0 Ur Specific [place] 1.021 Urine Protein 30 H Urine Glucose (UA) NEGATIVE Urine Ketones TRACE H Urine Blood LARGE H Urine Nitrite NEGATIVE Ur Leukocyte Esterase NEGATIVE Urine WBC (Auto) 1 Urine RBC (Auto) >182 11/24/19 11/24/19 02:40 11:50 Troponin I 0.329 1.820 EKG Comments: Twelve-lead EKG presently shows rate controlled atrial fibrillation Telemetry shows rate controlled atrial fibrillation Impressions: Chest X-Ray 11/24/19 02:23 IMPRESSION: Patchy airspace disease at the bases, new from prior copyright 2011 [employer]- All Rights Reserved Assessment & Plan - Diagnosis (1) Atrial fibrillation Is this a current diagnosis for this admission?: Yes Plan: Patient is rate controlled. With ongoing sepsis and shock may be reasonable to hold off on rate control agents. His INR is elevated. Plus we are initiating heparin therapy for elevated troponin likely due to demand mediated ischemia in the setting of sepsis. (2) Septic shock Is this a current diagnosis for this admission?: Yes Plan: Healthcare associated pneumonia with sepsis. Patient has been started on intravenous fluids as well as broad-spectrum antibiotic therapy. (3) HCAP (healthcare-associated pneumonia) Is this a current diagnosis for this admission?: Yes Plan: Broad-spectrum antibiotics (4) Elevated troponin Is this a current diagnosis for this admission?: Yes Plan: Elevated troponin this patient in the setting of sepsis and pneumonia. Likely demand mediated ischemia-type II myocardial infarction. Unlikely to be acute coronary syndrome Given significant elevation in troponin would recommend systemic heparinization Aspirin statin and beta-elvira when feasible Re-stratification later based on clinical course
[2019-11-24] MEDS ORDERED: ASPIRIN 81 MG TABLET, CHEWABLE PO ONE (20:00)
[2019-11-24] MEDS ORDERED: VANCOMYCIN HCL INJ 1000 MG VIAL IV SCH (22:00)
[2019-11-24] MEDS ORDERED: DABIGATRAN ETEXILATE 150 MG CAPSULE PO SCH (22:00)
[2019-11-24] MEDS: VANCOMYCIN HCL 750 MG in DEXTROSE 5%-WATER 250 ML IV SCH (23:11)
[2019-11-25] MEDS: NORMAL SALINE 1000 ML 1,000 ML IV PRN ×2 (02:31→14:39)
[2019-11-25 03:05] LABS: HEMATOCRIT 24.5 % (37.9-51.0); HEMOGLOBIN 8.5 g/dL (13.5-17.0); MEAN CORPUSCULAR HEMOGLOBIN 32.2 pg (27.0-33.4); MEAN CORPUSCULAR HGB CONC 34.8 g/dL (32.0-36.0); MEAN CORPUSCULAR VOLUME 93 fl (80-97); PLATELET COUNT 216 10^3/uL (150-450); RED BLOOD COUNT 2.65 10^6/uL (4.35-5.55); RED CELL DISTRIBUTION WIDTH 13.5 % (11.5-14.0); WHITE BLOOD COUNT 22.9 10^3/uL (4.0-10.5)
[2019-11-25 03:21] LABS: ANION GAP 8 (5-19); BLOOD UREA NITROGEN 35 mg/dL (7-20); CALCIUM 7.4 mg/dL (8.4-10.2); CARBON DIOXIDE 23 mmol/L (22-30); CHLORIDE 97 mmol/L (98-107); GLUCOSE 195 mg/dL (75-110); PHOSPHORUS 3.2 mg/dL (2.5-4.5)
[2019-11-25 03:26] LABS: ABSOLUTE LYMPHOCYTES# (MANUAL) 1.6 10^3/uL (0.5-4.7); ABSOLUTE MONOCYTES # (MANUAL) 0.5 10^3/uL (0.1-1.4); BAND NEUTROPHILS % (MANUAL) 3 % (3-5); BASOPHILS % (MANUAL) 0 % (0-2); EOSINOPHILS % (MANUAL) 0 % (0-6); LYMPHOCYTES % (MANUAL) 7 % (13-45); MONOCYTES % (MANUAL) 2 % (3-13); SEGMENTED NEUTROPHILS % (MAN) 88 % (42-78); TOTAL CELLS COUNTED 100
[2019-11-25 03:27] LABS: PLATELET COMMENT ADEQUATE
[2019-11-25 03:28] LABS: TOXIC GRANULATION SLIGHT
[2019-11-25] MEDS: PIPERACILLIN SODIUM/TAZOBACTAM 3.375 GM in NORMAL SALINE 100 ML IV SCH ×3 (05:41→21:36)
[2019-11-25] MEDS: GABAPENTIN 100 MG CAPSULE PO SCH ×3 (05:41→21:37)
[2019-11-25] MEDS: GLIPIZIDE XL 5 MG TAB.ER.24 PO SCH (08:24)
[2019-11-25] MEDS: MULTIVITAMIN TABLET PO SCH (08:24)
[2019-11-25] MEDS: INSULIN LISPRO 100 UNIT/ML 3 ML VIAL SUBCUT SCH ×4 (08:24→21:32)
--- NOTE | 2019-11-25 08:50 | PDOC PROGRESS REPORT ---
Subjective Progress Note for:: 11/25/19 Subjective:: Patient states that he remains very weak. His legs are still swollen. He denies any chast pain, cough, dyspnea, or other signs of infection. He remains on IV antibiotics. Reason For Visit: PNEUMONIA,HYPOTENSION Physical Exam Vital Signs: Temp Pulse Resp BP Pulse Ox 97.5 F 62 18 116/44 L 99 11/25/19 07:49 11/25/19 07:49 11/25/19 07:49 11/25/19 07:49 11/25/19 07:49 Intake & Output 11/24/19 11/25/19 11/26/19 06:59 06:59 06:59 Intake Total 2520 2410 Output Total 1225 Balance 2520 1185 Weight 82.3 kg 85 kg General appearance: PRESENT: no acute distress, well-developed, well-nourished Head exam: PRESENT: normocephalic Eye exam: PRESENT: EOMI Respiratory exam: PRESENT: clear to auscultation jamila, unlabored Cardiovascular exam: PRESENT: RRR Extremities exam: PRESENT: +1 edema - R>L Neurological exam: PRESENT: alert, awake Psychiatric exam: PRESENT: appropriate affect Skin exam: PRESENT: normal color Results Laboratory Results: 11/25/19 02:30 11/25/19 02:30 11/24/19 11/24/19 11/24/19 08:30 14:40 14:50 WBC 27.3 H RBC 2.80 L Hgb 9.1 L D Hct 25.7 L MCV 92 MCH 32.5 MCHC 35.4 RDW 13.3 Plt Count 240 Seg Neutrophils % Not Reportable Sodium Potassium Chloride Carbon Dioxide Anion Gap BUN Creatinine Est GFR ( Amer) Glucose Lactic Acid 1.5 Calcium Phosphorus Magnesium Urine Color KIM Urine Appearance CLOUDY Urine pH 5.0 Ur Specific [place] 1.021 Urine Protein 30 H Urine Glucose (UA) NEGATIVE Urine Ketones TRACE H Urine Blood LARGE H Urine Nitrite NEGATIVE Ur Leukocyte Esterase NEGATIVE Urine WBC (Auto) 1 Urine RBC (Auto) >182 11/25/19 11/25/19 02:30 02:30 WBC 22.9 H RBC 2.65 L Hgb 8.5 L Hct 24.5 L MCV 93 MCH 32.2 MCHC 34.8 RDW 13.5 Plt Count 216 Seg Neutrophils % Not Reportable Sodium 127.6 L Potassium 4.0 Chloride 97 L Carbon Dioxide 23 Anion Gap 8 BUN 35 H Creatinine 1.13 Est GFR ( Amer) > 60 Glucose 195 H Lactic Acid Calcium 7.4 L Phosphorus 3.2 Magnesium 1.7 Urine Color Urine Appearance Urine pH Ur Specific [place] Urine Protein Urine Glucose (UA) Urine Ketones Urine Blood Urine Nitrite Ur Leukocyte Esterase Urine WBC (Auto) Urine RBC (Auto) 11/24/19 11/24/19 11/24/19 02:40 11:50 19:24 Troponin I 0.329 1.820 1.970 Impressions: Chest X-Ray 11/24/19 02:23 IMPRESSION: Patchy airspace disease at the bases, new from prior copyright 2011 [employer]- All Rights Reserved Assessment & Plan - Diagnosis (1) Fever Qualifiers: Fever type: unspecified Qualified Code(s): R50.9 - Fever, unspecified Is this a current diagnosis for this admission?: Yes Plan: Now resolved. Temp and BP have been stable x 24 hours. Cultures are NGTD. (2) Abril cell cancer Is this a current diagnosis for this admission?: Yes Plan: Receiving Keytruda. Fever and immune reaction are known to occur with the keytruda. THis is usually treated with steroids. It is difficult to say if his symptoms are due to infection or medication. He received 1 dose of steroids in the ED, but this was not continued. Will watch and if any evidence that he is not responding to treatment, then will add steroids. (3) Paroxysmal atrial fibrillation Is this a current diagnosis for this admission?: Yes (4) Type 2 diabetes mellitus with diabetic neuropathy Qualifiers: Diabetes mellitus buttermaker continuous churn insulin use: without buttermaker continuous churn use Qualified Code(s): E11.40 - Type 2 diabetes mellitus with diabetic neuropathy, unspecified Is this a current diagnosis for this admission?: Yes (5) Weakness Is this a current diagnosis for this admission?: Yes Plan: He would greatly benefit from physical therapy. I will arrange. - Time Time Spent with patient: 15-24 minutes
[2019-11-25 08:51] LABS: APPEARANCE,URINE SLIGHTLY-CLOUDY; BILIRUBIN,URINE NEGATIVE (NEGATIVE); COLOR,URINE YELLOW; GLUCOSE, URINE NEGATIVE (NEGATIVE); KETONES,URINE NEGATIVE (NEGATIVE); LEUKOCYTE ESTERASE,URINE NEGATIVE (NEGATIVE); NITRITE,URINE NEGATIVE (NEGATIVE); PROTEIN,URINE 30 mg/dL (NEGATIVE); URINE SPECIFIC GRAVITY 1.021; UROBILINOGEN,URINE NEGATIVE mg/dL (<2.0)
[2019-11-25 09:18] LABS: OSMOLALITY,URINE 515 mOsm/kg (300-900)
[2019-11-25] MEDS: EZETIMIBE 10 MG TABLET PO SCH (09:31)
[2019-11-25] MEDS: SITAGLIPTIN PHOSPHATE 50 MG TABLET PO SCH (09:31)
[2019-11-25] MEDS: METOPROLOL SUCCINATE 50 MG TAB.SR.24H PO SCH (09:31)
[2019-11-25] MEDS: TRIAMCINOLONE ACETONIDE 0.5% CREAM 15 GM TOP SCH ×4 (09:32→17:54)
[2019-11-25] MEDS: VANCOMYCIN HCL 750 MG in DEXTROSE 5%-WATER 250 ML IV SCH ×2 (09:37→22:16)
[2019-11-25 09:58] LABS: URINE SODIUM < 5 mmol/L (30-90)
--- NOTE | 2019-11-25 13:42 | PDOC PROGRESS REPORT ---
Subjective Progress Note for:: 11/25/19 Subjective:: Feels much better.. Spouse at bedside. Eating breakfast. More awake and alert. Reason For Visit: PNEUMONIA,HYPOTENSION Physical Exam Vital Signs: Temp Pulse Resp BP Pulse Ox 97.6 F 58 L 18 114/47 L 100 11/25/19 11:26 11/25/19 11:26 11/25/19 11:26 11/25/19 11:26 11/25/19 11:26 Intake & Output 11/24/19 11/25/19 11/26/19 06:59 06:59 06:59 Intake Total 2520 2410 236 Output Total 1225 200 Balance 2520 1185 36 Weight 82.3 kg 85 kg General appearance: PRESENT: no acute distress, cooperative, well-developed Head exam: PRESENT: atraumatic, normocephalic Eye exam: PRESENT: conjunctiva pink, EOMI Mouth exam: PRESENT: moist Respiratory exam: PRESENT: crackles, decreased breath sounds, symmetrical, unlabored Cardiovascular exam: PRESENT: irregular rhythm, +S1, +S2 Pulses: PRESENT: normal radial pulses GI/Abdominal exam: PRESENT: soft Rectal exam: PRESENT: deferred Neurological exam: PRESENT: alert, awake, oriented to person, oriented to place Psychiatric exam: PRESENT: appropriate affect Skin exam: PRESENT: dry, intact Results Laboratory Results: 11/25/19 02:30 11/25/19 02:30 11/24/19 11/24/19 11/25/19 14:40 14:50 02:30 WBC 27.3 H 22.9 H RBC 2.80 L 2.65 L Hgb 9.1 L D 8.5 L Hct 25.7 L 24.5 L MCV 92 93 MCH 32.5 32.2 MCHC 35.4 34.8 RDW 13.3 13.5 Plt Count 240 216 Seg Neutrophils % Not Reportable Not Reportable Sodium Potassium Chloride Carbon Dioxide Anion Gap BUN Creatinine Est GFR ( Amer) Glucose Serum Osmolality Calcium Phosphorus Magnesium Urine Color KIM Urine Appearance CLOUDY Urine pH 5.0 Ur Specific [place] 1.021 Urine Protein 30 H Urine Glucose (UA) NEGATIVE Urine Ketones TRACE H Urine Blood LARGE H Urine Nitrite NEGATIVE Ur Leukocyte Esterase NEGATIVE Urine WBC (Auto) 1 Urine RBC (Auto) >182 Urine Osmolality 11/25/19 11/25/19 11/25/19 02:30 02:30 08:30 WBC RBC Hgb Hct MCV MCH MCHC RDW Plt Count Seg Neutrophils % Sodium 127.6 L Potassium 4.0 Chloride 97 L Carbon Dioxide 23 Anion Gap 8 BUN 35 H Creatinine 1.13 Est GFR ( Amer) > 60 Glucose 195 H Serum Osmolality 278 Calcium 7.4 L Phosphorus 3.2 Magnesium 1.7 Urine Color YELLOW Urine Appearance SLIGHTLY-CLOUDY Urine pH 5.0 Ur Specific [place] 1.021 Urine Protein 30 H Urine Glucose (UA) NEGATIVE Urine Ketones NEGATIVE Urine Blood LARGE H Urine Nitrite NEGATIVE Ur Leukocyte Esterase NEGATIVE Urine WBC (Auto) 19 Urine RBC (Auto) >182 Urine Osmolality 11/25/19 08:30 WBC RBC Hgb Hct MCV MCH MCHC RDW Plt Count Seg Neutrophils % Sodium Potassium Chloride Carbon Dioxide Anion Gap BUN Creatinine Est GFR ( Amer) Glucose Serum Osmolality Calcium Phosphorus Magnesium Urine Color Urine Appearance Urine pH Ur Specific [place] Urine Protein Urine Glucose (UA) Urine Ketones Urine Blood Urine Nitrite Ur Leukocyte Esterase Urine WBC (Auto) Urine RBC (Auto) Urine Osmolality 515 11/24/19 11/24/19 11/24/19 02:40 11:50 19:24 Troponin I 0.329 1.820 1.970 11/25/19 10:38 Troponin I 1.710 EKG Comments: Troponin level has peaked at 1.9 and has come down now to 1.7 Impressions: Chest X-Ray 11/24/19 02:23 IMPRESSION: Patchy airspace disease at the bases, new from prior copyright 2011 [employer]- All Rights Reserved Assessment & Plan - Diagnosis (1) Atrial fibrillation Is this a current diagnosis for this admission?: Yes Plan: Rate control strategy. If able to resume beta elvira. Continue systemic anticoagulation with dabigatran as before. (2) Septic shock Is this a current diagnosis for this admission?: Yes Plan: Seems to be improving. Broad-spectrum antibiotics for treatment of H CAP pneumonia. Overall clinically much better. (3) HCAP (healthcare-associated pneumonia) Is this a current diagnosis for this admission?: Yes Plan: Antibiotics per protocol. Seems to be improving. Better air entry (4) Elevated troponin Is this a current diagnosis for this admission?: Yes Plan: Likely demand mediated ischemia in the setting of severe sepsis and pneumonia. Presently chest pain-free Recommend continuing heparin ACS protocol for another 24 hours and then discontinue. Aspirin statin and beta-elvira as feasible. No indication for re-stratification at the moment
[2019-11-25] MEDS: BACITRACIN ZINC OINTMENT 15 GM TP SCH (14:07)
--- NOTE | 2019-11-25 17:48 | PDOC PROGRESS REPORT ---
Subjective Progress Note for:: 11/25/19 Subjective:: Patient is doing a lot better today. His breathing has improved. Still having some coughing. Denies any chest pain at this time. More awake and alert today. Reason For Visit: PNEUMONIA,HYPOTENSION Physical Exam Vital Signs: Temp Pulse Resp BP Pulse Ox 97.5 F 68 18 108/48 L 100 11/25/19 16:00 11/25/19 16:00 11/25/19 16:00 11/25/19 16:00 11/25/19 16:00 Intake & Output 11/24/19 11/25/19 11/26/19 06:59 06:59 06:59 Intake Total 2520 2410 1586 Output Total 1225 200 Balance 2520 1185 1386 Weight 82.3 kg 85 kg General appearance: PRESENT: no acute distress, cooperative Neck exam: ABSENT: JVD Respiratory exam: PRESENT: crackles - Right lung base, unlabored. ABSENT: accessory muscle use, tachypnea, wheezes Cardiovascular exam: PRESENT: irregular rhythm, +S1, +S2. ABSENT: tachycardia GI/Abdominal exam: PRESENT: normal bowel sounds, soft. ABSENT: rebound, rigid, tenderness Neurological exam: PRESENT: alert, awake, oriented to person, oriented to place, oriented to time Results Laboratory Results: 11/25/19 02:30 11/25/19 02:30 11/25/19 11/25/19 11/25/19 02:30 02:30 02:30 WBC 22.9 H RBC 2.65 L Hgb 8.5 L Hct 24.5 L MCV 93 MCH 32.2 MCHC 34.8 RDW 13.5 Plt Count 216 Seg Neutrophils % Not Reportable Sodium 127.6 L Potassium 4.0 Chloride 97 L Carbon Dioxide 23 Anion Gap 8 BUN 35 H Creatinine 1.13 Est GFR ( Amer) > 60 Glucose 195 H Serum Osmolality 278 Calcium 7.4 L Phosphorus 3.2 Magnesium 1.7 Urine Color Urine Appearance Urine pH Ur Specific [place] Urine Protein Urine Glucose (UA) Urine Ketones Urine Blood Urine Nitrite Ur Leukocyte Esterase Urine WBC (Auto) Urine RBC (Auto) Urine Osmolality 11/25/19 11/25/19 08:30 08:30 WBC RBC Hgb Hct MCV MCH MCHC RDW Plt Count Seg Neutrophils % Sodium Potassium Chloride Carbon Dioxide Anion Gap BUN Creatinine Est GFR ( Amer) Glucose Serum Osmolality Calcium Phosphorus Magnesium Urine Color YELLOW Urine Appearance SLIGHTLY-CLOUDY Urine pH 5.0 Ur Specific [place] 1.021 Urine Protein 30 H Urine Glucose (UA) NEGATIVE Urine Ketones NEGATIVE Urine Blood LARGE H Urine Nitrite NEGATIVE Ur Leukocyte Esterase NEGATIVE Urine WBC (Auto) 19 Urine RBC (Auto) >182 Urine Osmolality 515 11/24/19 11/24/19 11/24/19 02:40 11:50 19:24 Troponin I 0.329 1.820 1.970 11/25/19 10:38 Troponin I 1.710 Impressions: Chest X-Ray 11/24/19 02:23 IMPRESSION: Patchy airspace disease at the bases, new from prior copyright 2011 [employer]- All Rights Reserved Assessment and Plan - Diagnosis (1) HCAP (healthcare-associated pneumonia) Is this a current diagnosis for this admission?: Yes Plan: Chest x-ray does show some increased patchy opacities suggestive of pneumonia Given fever, hypotension, severe leukocytosis with bandemia, mild encephalopathy and severe sepsis picture, I I am treating for HCAP and cover patient with vancomycin and Zosyn day 2. Continue to follow blood cultures and sputum culture. (2) Fever Qualifiers: Fever type: unspecified Qualified Code(s): R50.9 - Fever, unspecified Is this a current diagnosis for this admission?: Yes Plan: Antibiotics. Potential source is pneumonia. Patient did recently have osteomyelitis and underwent left third toe amputation with deep wound culture growing Pseudomonas, E. coli and enterococcus and discharged on Levaquin. Site of amputation as well as foot ulcer look to be clean and without purulence or significant erythema. Another potential cause, as depicted by oncology, will be Keytruda. Currently fevers have resolved. 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 Dr. Calvin naik. Will hold while inpatient. (4) Elevated troponin Is this a current diagnosis for this admission?: Yes Plan: Seems to have peaked at 1.9. Likely secondary to demand perfusion mismatch i.e. type II NSTEMI from initial severe sepsis. Currently will remain on heparin drip for another 24 hours to complete 48 hours and then will be discontinued. Cardiology following. (5) Paroxysmal atrial fibrillation Is this a current diagnosis for this admission?: Yes Plan: Hold Toprol-XL for today and resume tomorrow as blood pressures are still somewhat soft. (6) Amputation of toe of left foot Is this a current diagnosis for this admission?: Yes Plan: Recent osteomyelitis s/p amputation of left third toe on 10/17/2019 which seems to be healing well. (7) Diabetic ulcer of left foot Qualifiers: Diabetic foot ulcer location: other Diabetes mellitus type: type 2 Non- pressure ulcer stage: with other severity Qualified Code(s): E11.621 - Type 2 diabetes mellitus with foot ulcer; L97.528 - Non-pressure chronic ulcer of other part of left foot with other specified severity Is this a current diagnosis for this admission?: Yes Plan: Wound care (8) Type 2 diabetes mellitus with diabetic neuropathy Qualifiers: Diabetes mellitus grade setter insulin use: without alf use Qualified Code(s): E11.40 - Type 2 diabetes mellitus with diabetic neuropathy, unspecified Is this a current diagnosis for this admission?: Yes (9) Severe sepsis Is this a current diagnosis for this admission?: Yes Plan: Sepsis resolved at this time. - Time Time Spent with patient: 15-24 minutes
[2019-11-26] MEDS: NORMAL SALINE 1000 ML 1,000 ML IV PRN (01:01)
[2019-11-26] MEDS: ACETAMINOPHEN 325 MG TABLET PO PRN ×2 (05:20→21:45)
[2019-11-26] MEDS: GABAPENTIN 100 MG CAPSULE PO SCH ×3 (05:20→21:44)
[2019-11-26] MEDS: PIPERACILLIN SODIUM/TAZOBACTAM 3.375 GM in NORMAL SALINE 100 ML IV SCH ×3 (05:21→21:44)
[2019-11-26 07:11] LABS: ABSOLUTE EOSINOPHILS # (AUTO) 0.2 10^3/uL (0.0-0.6); ABSOLUTE LYMPHOCYTES (AUTO) 1.5 10^3/uL (0.5-4.7); ABSOLUTE MONOCYTES (AUTO) 0.6 10^3/uL (0.1-1.4); ABSOLUTE NEUT (AUTO) 8.8 10^3/uL (1.7-8.2); BASOPHILS % (AUTO) 0.3 % (0-2); EOSINOPHILS % (AUTO) 1.4 % (0-6); HEMATOCRIT 22.3 % (37.9-51.0); LYMPHOCYTES % (AUTO) 13.6 % (13-45); MEAN CORPUSCULAR HEMOGLOBIN 32.3 pg (27.0-33.4); MEAN CORPUSCULAR HGB CONC 34.9 g/dL (32.0-36.0); MEAN CORPUSCULAR VOLUME 93 fl (80-97); MONOCYTES % (AUTO) 5.5 % (3-13); PLATELET COUNT 240 10^3/uL (150-450); RED BLOOD COUNT 2.41 10^6/uL (4.35-5.55); RED CELL DISTRIBUTION WIDTH 14.1 % (11.5-14.0); SEGMENTED NEUTROPHILS % (AUTO) 79.2 % (42-78); TOTAL CELLS COUNTED % (AUTO) 100 %; WHITE BLOOD COUNT 11.1 10^3/uL (4.0-10.5)
[2019-11-26 07:16] LABS: HEMOGLOBIN 7.8 g/dL (13.5-17.0)
[2019-11-26 07:27] LABS: ANION GAP 5 (5-19); BLOOD UREA NITROGEN 32 mg/dL (7-20); CALCIUM 7.7 mg/dL (8.4-10.2); CARBON DIOXIDE 23 mmol/L (22-30); CHLORIDE 100 mmol/L (98-107); GLUCOSE 90 mg/dL (75-110)
--- NOTE | 2019-11-26 07:27 | PDOC PROGRESS REPORT ---
Subjective Progress Note for:: 11/26/19 Subjective:: Patient complaining of back pain today. Nurses state that he does not like to move very much. Reason For Visit: PNEUMONIA,HYPOTENSION Physical Exam Vital Signs: Temp Pulse Resp BP Pulse Ox 97.3 F 58 L 20 108/49 L 100 11/26/19 03:20 11/26/19 03:20 11/26/19 03:20 11/26/19 03:20 11/26/19 03:20 Intake & Output 11/25/19 11/26/19 11/27/19 06:59 06:59 06:59 Intake Total 2410 3873 Output Total 1225 500 Balance 1185 3373 Weight 85 kg 89.4 kg General appearance: PRESENT: well-developed, well-nourished Head exam: PRESENT: normocephalic Respiratory exam: PRESENT: clear to auscultation jamila, unlabored Cardiovascular exam: PRESENT: RRR GI/Abdominal exam: PRESENT: soft. ABSENT: tenderness Extremities exam: ABSENT: pedal edema Neurological exam: PRESENT: alert, awake Psychiatric exam: PRESENT: appropriate affect Skin exam: PRESENT: normal color Results Laboratory Results: 11/26/19 06:20 11/25/19 11/25/19 11/25/19 02:30 08:30 08:30 WBC RBC Hgb Hct MCV MCH MCHC RDW Plt Count Seg Neutrophils % Serum Osmolality 278 Urine Color YELLOW Urine Appearance SLIGHTLY-CLOUDY Urine pH 5.0 Ur Specific [place] 1.021 Urine Protein 30 H Urine Glucose (UA) NEGATIVE Urine Ketones NEGATIVE Urine Blood LARGE H Urine Nitrite NEGATIVE Ur Leukocyte Esterase NEGATIVE Urine WBC (Auto) 19 Urine RBC (Auto) >182 Urine Osmolality 515 11/26/19 06:20 WBC 11.1 H RBC 2.41 L Hgb 7.8 L Hct 22.3 L MCV 93 MCH 32.3 MCHC 34.9 RDW 14.1 H Plt Count 240 Seg Neutrophils % 79.2 H Serum Osmolality Urine Color Urine Appearance Urine pH Ur Specific [place] Urine Protein Urine Glucose (UA) Urine Ketones Urine Blood Urine Nitrite Ur Leukocyte Esterase Urine WBC (Auto) Urine RBC (Auto) Urine Osmolality 11/24/19 11/24/19 11/24/19 02:40 11:50 19:24 Troponin I 0.329 1.820 1.970 11/25/19 10:38 Troponin I 1.710 Impressions: Chest X-Ray 11/24/19 02:23 IMPRESSION: Patchy airspace disease at the bases, new from prior copyright 2011 [employer]- All Rights Reserved Assessment & Plan - Diagnosis (1) Fever Qualifiers: Fever type: unspecified Qualified Code(s): R50.9 - Fever, unspecified Is this a current diagnosis for this admission?: Yes Plan: Now resolved. Continues antibiotics. (2) Abril cell cancer Is this a current diagnosis for this admission?: Yes Plan: Keytruda on hold currently. (3) Paroxysmal atrial fibrillation Is this a current diagnosis for this admission?: Yes Plan: Was on Pradaxa prior to admission. Now on Heparin drip. Pradaxa to be restarted once heparin is stopped. (4) Type 2 diabetes mellitus with diabetic neuropathy Qualifiers: Diabetes mellitus intermission coordinator insulin use: without care home use Qualified Code(s): E11.40 - Type 2 diabetes mellitus with diabetic neuropathy, unspecified Is this a current diagnosis for this admission?: Yes (5) Weakness Is this a current diagnosis for this admission?: Yes Plan: Physical therapy working with patient. He may need rehab stay. - Time Time Spent with patient: 15-24 minutes - Plan Summary Plan Summary: I will be available if needed. Please call with any concerns. Will follow-up as outpatient.
[2019-11-26] MEDS: INSULIN LISPRO 100 UNIT/ML 3 ML VIAL SUBCUT SCH ×4 (08:43→22:03)
[2019-11-26] MEDS: MULTIVITAMIN TABLET PO SCH (08:51)
[2019-11-26] MEDS: GLIPIZIDE XL 5 MG TAB.ER.24 PO SCH (08:51)
[2019-11-26] MEDS: TRIAMCINOLONE ACETONIDE 0.5% CREAM 15 GM TOP SCH ×3 (10:20→17:03)
[2019-11-26] MEDS: SITAGLIPTIN PHOSPHATE 50 MG TABLET PO SCH (10:20)
[2019-11-26] MEDS: EZETIMIBE 10 MG TABLET PO SCH (10:20)
[2019-11-26] MEDS: BACITRACIN ZINC OINTMENT 15 GM TP SCH (10:20)
[2019-11-26] MEDS: METOPROLOL SUCCINATE 50 MG TAB.SR.24H PO SCH (10:20)
[2019-11-26] MEDS: VANCOMYCIN HCL 750 MG in DEXTROSE 5%-WATER 250 ML IV SCH ×2 (10:21→21:44)
[2019-11-26 13:12] LABS: VANCOMYCIN,TROUGH 13.4 ug/mL (5.0-20.0)
--- NOTE | 2019-11-26 14:59 | CDI QUERY ---
CDI Query CDI Review: Dear Provider: To better reflect your patients severity of illness, morbidity, and resource utilization Please specify and document in the Progress Notes and Discharge Summary if you are monitoring / treating / evaluating any of the following conditions: Query Clinical indicators If you can further specify the encephalopathy: Metabolic encephalopathy Toxic encephalopathy Unable to determine Other Acute blood loss anemia Acute on chronic blood loss Anemia of chronic disease Anemia 2/2 to chemotherapy Unable to determine Other Per H&P: HAYDEE KHAN is a 79 year old male with history of diabetes mellitus, 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 fib, who presents to the hospital today after expressive fever and increased weakness at home Given fever, hypotension, severe leukocytosis with bandemia, mild encephalopathy and severe sepsis picture Lab 11/24/19 11/24/19 11/25/19 11/26/19 RBC: 3.55 2.80 2.65 2.41 H/H: 11.4 / 32.8 9.1 / 25.7 8.5 / 24.5 7.8 / 22.3 The terms probable, suspected, likely, possible or still to be ruled out may be used if you are unable to determine the exact nature of a condition. Thank you, Clinical Documentation [facility] JC Medina RN, BSN RN Office [phone] Office [phone]
--- NOTE | 2019-11-26 15:06 | PDOC PROGRESS REPORT ---
Subjective Progress Note for:: 11/26/19 Subjective:: Patient feels well today. Sitting up in chair. Comfortable and has no complaints. Denies any evidence of bleeding. Reason For Visit: PNEUMONIA,HYPOTENSION Physical Exam Vital Signs: Temp Pulse Resp BP Pulse Ox 97.8 F 71 18 106/52 L 100 11/26/19 08:07 11/26/19 14:00 11/26/19 12:50 11/26/19 12:50 11/26/19 12:50 Intake & Output 11/25/19 11/26/19 11/27/19 06:59 06:59 06:59 Intake Total 2410 3873 250 Output Total 1225 500 Balance 1185 3373 250 Weight 85 kg 89.4 kg General appearance: PRESENT: no acute distress, cooperative Neck exam: ABSENT: JVD Respiratory exam: PRESENT: symmetrical, unlabored. ABSENT: accessory muscle use, tachypnea, wheezes Cardiovascular exam: PRESENT: RRR, +S1, +S2. ABSENT: tachycardia GI/Abdominal exam: PRESENT: soft. ABSENT: rebound, rigid, tenderness Musculoskeletal exam: PRESENT: ambulatory Neurological exam: PRESENT: alert, awake Results Laboratory Results: 11/26/19 06:20 11/26/19 06:20 11/26/19 11/26/19 06:20 06:20 WBC 11.1 H RBC 2.41 L Hgb 7.8 L Hct 22.3 L MCV 93 MCH 32.3 MCHC 34.9 RDW 14.1 H Plt Count 240 Seg Neutrophils % 79.2 H Sodium 128.3 L Potassium 4.0 Chloride 100 Carbon Dioxide 23 Anion Gap 5 BUN 32 H Creatinine 1.08 Est GFR ( Amer) > 60 Glucose 90 Calcium 7.7 L 11/25/19 09:05 Sputum Gram Stain - Final 11/25/19 09:05 Sputum Sputum Culture - Final Yeast, Not Caro Albicans Reduced Normal Natalee 11/24/19 11/24/19 11/24/19 02:40 11:50 19:24 Troponin I 0.329 1.820 1.970 11/25/19 10:38 Troponin I 1.710 Impressions: Chest X-Ray 11/24/19 02:23 IMPRESSION: Patchy airspace disease at the bases, new from prior copyright 2011 [employer]- All Rights Reserved Assessment and Plan - Diagnosis (1) HCAP (healthcare-associated pneumonia) Is this a current diagnosis for this admission?: Yes Plan: Chest x-ray does show some increased patchy opacities suggestive of pneumonia vancomycin and Zosyn day 3. Sputum culture showing yeast which is likely chronic colonization and not actual etiology of infection. (2) Fever Qualifiers: Fever type: unspecified Qualified Code(s): R50.9 - Fever, unspecified Is this a current diagnosis for this admission?: Yes Plan: Antibiotics. Potential source is pneumonia. Patient did recently have osteomyelitis and underwent left third toe amputation with deep wound culture growing Pseudomonas, E. coli and enterococcus and discharged on Levaquin. Site of amputation as well as foot ulcer look to be clean and without purulence or significant erythema. Another potential cause, as depicted by oncology, will be Keytruda. Currently fevers have resolved. 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 Dr. Calvin marie Will hold while inpatient. (4) Elevated troponin Is this a current diagnosis for this admission?: Yes Plan: Seems to have peaked at 1.9. Likely secondary to demand perfusion mismatch i.e. type II NSTEMI from initial severe sepsis. Heparin drip has been discontinued as patient has completed 48 hours of therapy. (5) Paroxysmal atrial fibrillation Is this a current diagnosis for this admission?: Yes Plan: Toprol-XL and Pradaxa resumed (6) Amputation of toe of left foot Is this a current diagnosis for this admission?: Yes Plan: Recent osteomyelitis s/p amputation of left third toe on 10/17/2019 which seems to be healing well. (7) Diabetic ulcer of left foot Qualifiers: Diabetic foot ulcer location: other Diabetes mellitus type: type 2 Non-pressure ulcer stage: with other severity Qualified Code(s): E11.621 - Type 2 diabetes mellitus with foot ulcer; L97.528 - Non-pressure chronic ulcer of other part of left foot with other specified severity Is this a current diagnosis for this admission?: Yes Plan: Wound care with bacitracin (8) Type 2 diabetes mellitus with diabetic neuropathy Qualifiers: Diabetes mellitus buttermaker helper insulin use: without nursing home use Qualified Code(s): E11.40 - Type 2 diabetes mellitus with diabetic neuropathy, unspecified Is this a current diagnosis for this admission?: Yes (9) Severe sepsis Is this a current diagnosis for this admission?: Yes Plan: Sepsis resolved at this time. - Time Time Spent with patient: 15-24 minutes Anticipated discharge: Home with Homehealth Within: within 24 hours
--- NOTE | 2019-11-26 15:26 | PDOC PROGRESS REPORT ---
Subjective Progress Note for:: 11/26/19 Subjective:: Feels much better. Spouse at bedside. No chest pain. More awake and alert. Reason For Visit: PNEUMONIA,HYPOTENSION Physical Exam Vital Signs: Temp Pulse Resp BP Pulse Ox 97.3 F 69 20 108/49 L 100 11/26/19 03:20 11/26/19 07:00 11/26/19 03:20 11/26/19 03:20 11/26/19 03:20 Intake & Output 11/25/19 11/26/19 11/27/19 06:59 06:59 06:59 Intake Total 2410 3873 Output Total 1225 500 Balance 1185 3373 Weight 85 kg 89.4 kg General appearance: PRESENT: no acute distress, cooperative, well-developed Head exam: PRESENT: atraumatic, normocephalic Eye exam: PRESENT: conjunctiva pink, EOMI Mouth exam: PRESENT: moist Teeth exam: PRESENT: poor dentation Respiratory exam: PRESENT: decreased breath sounds, rales, symmetrical, unlabored Cardiovascular exam: PRESENT: irregular rhythm, +S1, +S2 Pulses: PRESENT: normal radial pulses Rectal exam: PRESENT: deferred Musculoskeletal exam: PRESENT: normal inspection Neurological exam: PRESENT: alert, awake, oriented to person, oriented to place Psychiatric exam: PRESENT: appropriate affect Skin exam: PRESENT: dry, normal color Results Laboratory Results: 11/26/19 06:20 11/26/19 06:20 11/25/19 11/25/19 11/26/19 02:30 08:30 06:20 WBC RBC Hgb Hct MCV MCH MCHC RDW Plt Count Seg Neutrophils % Sodium 128.3 L Potassium 4.0 Chloride 100 Carbon Dioxide 23 Anion Gap 5 BUN 32 H Creatinine 1.08 Est GFR ( Amer) > 60 Glucose 90 Serum Osmolality 278 Calcium 7.7 L Urine Osmolality 515 11/26/19 06:20 WBC 11.1 H RBC 2.41 L Hgb 7.8 L Hct 22.3 L MCV 93 MCH 32.3 MCHC 34.9 RDW 14.1 H Plt Count 240 Seg Neutrophils % 79.2 H Sodium Potassium Chloride Carbon Dioxide Anion Gap BUN Creatinine Est GFR ( Amer) Glucose Serum Osmolality Calcium Urine Osmolality 11/24/19 11/24/19 11/24/19 02:40 11:50 19:24 Troponin I 0.329 1.820 1.970 11/25/19 10:38 Troponin I 1.710 Impressions: Chest X-Ray 11/24/19 02:23 IMPRESSION: Patchy airspace disease at the bases, new from prior copyright 2011 [employer]- All Rights Reserved Assessment & Plan - Diagnosis (1) Atrial fibrillation Is this a current diagnosis for this admission?: Yes Plan: Rate control strategy. If able to resume beta elvira. Continue systemic anticoagulation with dabigatran as before. (2) Septic shock Is this a current diagnosis for this admission?: Yes Plan: Seems to be improving. Broad-spectrum antibiotics for treatment of H CAP pneumonia. Overall clinically much better. (3) HCAP (healthcare-associated pneumonia) Is this a current diagnosis for this admission?: Yes Plan: Antibiotics per protocol. Seems to be improving. Better air entry (4) Elevated troponin Is this a current diagnosis for this admission?: Yes Plan: Likely demand mediated ischemia in the setting of severe sepsis and pneumonia. Presently chest pain-free Discontinue Heparin. Aspirin statin and beta-elvira as feasible. No indication for re-stratification at the moment
[2019-11-26] MEDS: DABIGATRAN ETEXILATE 150 MG CAPSULE PO SCH (21:44)
[2019-11-27] MEDS: ACETAMINOPHEN 325 MG TABLET PO PRN (01:56)
[2019-11-27] MEDS: PIPERACILLIN SODIUM/TAZOBACTAM 3.375 GM in NORMAL SALINE 100 ML IV SCH ×2 (05:44→14:22)
[2019-11-27] MEDS: GABAPENTIN 100 MG CAPSULE PO SCH ×2 (05:46→13:43)
[2019-11-27 06:43] LABS: ABSOLUTE EOSINOPHILS # (AUTO) 0.3 10^3/uL (0.0-0.6); ABSOLUTE LYMPHOCYTES (AUTO) 1.7 10^3/uL (0.5-4.7); ABSOLUTE MONOCYTES (AUTO) 0.6 10^3/uL (0.1-1.4); BASOPHILS % (AUTO) 0.5 % (0-2); EOSINOPHILS % (AUTO) 3.5 % (0-6); HEMATOCRIT 21.3 % (37.9-51.0); LYMPHOCYTES % (AUTO) 17.3 % (13-45); MEAN CORPUSCULAR HEMOGLOBIN 33.1 pg (27.0-33.4); MEAN CORPUSCULAR HGB CONC 36.1 g/dL (32.0-36.0); MEAN CORPUSCULAR VOLUME 92 fl (80-97); MONOCYTES % (AUTO) 6.1 % (3-13); PLATELET COUNT 252 10^3/uL (150-450); RED BLOOD COUNT 2.32 10^6/uL (4.35-5.55); RED CELL DISTRIBUTION WIDTH 13.7 % (11.5-14.0); SEGMENTED NEUTROPHILS % (AUTO) 72.6 % (42-78); TOTAL CELLS COUNTED % (AUTO) 100 %; WHITE BLOOD COUNT 9.7 10^3/uL (4.0-10.5)
[2019-11-27 06:57] LABS: ANION GAP 5 (5-19); BLOOD UREA NITROGEN 23 mg/dL (7-20); CALCIUM 7.8 mg/dL (8.4-10.2); CARBON DIOXIDE 24 mmol/L (22-30); CHLORIDE 101 mmol/L (98-107); GLUCOSE 73 mg/dL (75-110)
[2019-11-27 07:00] LABS: HEMOGLOBIN 7.7 g/dL (13.5-17.0)
[2019-11-27] MEDS: INSULIN LISPRO 100 UNIT/ML 3 ML VIAL SUBCUT SCH ×2 (07:52→13:43)
--- NOTE | 2019-11-27 08:04 | PDOC PROGRESS REPORT ---
Subjective Progress Note for:: 11/27/19 Subjective:: Patient is much improved today. He is stilling up on the side of the bed reading his newspaper. is at bedside. He states that he is still having some difficulty walking, but otherwise, is feeling anxious to go home. Reason For Visit: PNEUMONIA,HYPOTENSION Physical Exam Vital Signs: Temp Pulse Resp BP Pulse Ox 97.4 F 69 20 113/55 L 97 11/27/19 03:53 11/27/19 03:53 11/27/19 03:53 11/27/19 03:53 11/27/19 03:53 Intake & Output 11/26/19 11/27/19 11/28/19 06:59 06:59 06:59 Intake Total 3873 2272 Output Total 500 450 Balance 3373 1822 Weight 89.4 kg 93.6 kg General appearance: PRESENT: no acute distress, well-developed, well-nourished Head exam: PRESENT: normocephalic Respiratory exam: PRESENT: unlabored Musculoskeletal exam: PRESENT: ambulatory Neurological exam: PRESENT: alert, awake Psychiatric exam: PRESENT: appropriate affect Skin exam: PRESENT: normal color Results Laboratory Results: 11/27/19 05:55 11/27/19 05:55 11/27/19 11/27/19 05:55 05:55 WBC 9.7 RBC 2.32 L Hgb 7.7 L Hct 21.3 L MCV 92 MCH 33.1 MCHC 36.1 H RDW 13.7 Plt Count 252 Seg Neutrophils % 72.6 Sodium 130.1 L Potassium 4.0 Chloride 101 Carbon Dioxide 24 Anion Gap 5 BUN 23 H Creatinine 0.86 Est GFR ( Amer) > 60 Glucose 73 L Calcium 7.8 L 11/25/19 09:05 Sputum Gram Stain - Final 11/25/19 09:05 Sputum Sputum Culture - Final Yeast, Not Caro Albicans Reduced Normal Natalee 11/24/19 11/24/19 11/24/19 02:40 11:50 19:24 Troponin I 0.329 1.820 1.970 11/25/19 10:38 Troponin I 1.710 Impressions: Chest X-Ray 11/24/19 02:23 IMPRESSION: Patchy airspace disease at the bases, new from prior copyright 2010 [employer]- All Rights Reserved Assessment & Plan - Diagnosis (1) Fever Qualifiers: Fever type: unspecified Qualified Code(s): R50.9 - Fever, unspecified Is this a current diagnosis for this admission?: Yes (2) [place] cell cancer Is this a current diagnosis for this admission?: Yes (3) Paroxysmal atrial fibrillation Is this a current diagnosis for this admission?: Yes (4) Type 2 diabetes mellitus with diabetic neuropathy Qualifiers: Diabetes mellitus retirement insulin use: without watcher automat long goods use Qualified Code(s): E11.40 - Type 2 diabetes mellitus with diabetic neuropathy, unspecified Is this a current diagnosis for this admission?: Yes (5) Weakness Is this a current diagnosis for this admission?: Yes - Time Time Spent with patient: Less than 15 minutes - Plan Summary Plan Summary: OK for discharge from my standpoint. He will follow-up as previously scheduled to continue Keytruda treatments.
[2019-11-27] MEDS: MULTIVITAMIN TABLET PO SCH (08:05)
[2019-11-27] MEDS: GLIPIZIDE XL 5 MG TAB.ER.24 PO SCH (08:05)
[2019-11-27] MEDS: METOPROLOL SUCCINATE 50 MG TAB.SR.24H PO SCH (10:38)
[2019-11-27] MEDS: SITAGLIPTIN PHOSPHATE 50 MG TABLET PO SCH (10:40)
[2019-11-27] MEDS: DABIGATRAN ETEXILATE 150 MG CAPSULE PO SCH (10:41)
[2019-11-27] MEDS: EZETIMIBE 10 MG TABLET PO SCH (10:41)
[2019-11-27] MEDS: BACITRACIN ZINC OINTMENT 15 GM TP SCH (10:43)
[2019-11-27] MEDS: VANCOMYCIN HCL 750 MG in DEXTROSE 5%-WATER 250 ML IV SCH (10:44)
--- NOTE | 2019-11-27 11:10 | PDOC PROGRESS REPORT ---
Subjective Progress Note for:: 11/27/19 Subjective:: Feels much better. Spouse at bedside. No chest pain. More awake and alert. Reason For Visit: PNEUMONIA,HYPOTENSION Physical Exam Vital Signs: Temp Pulse Resp BP Pulse Ox 97.6 F 61 16 111/65 100 11/27/19 07:41 11/27/19 07:41 11/27/19 07:41 11/27/19 07:41 11/27/19 07:41 Intake & Output 11/26/19 11/27/19 11/28/19 06:59 06:59 06:59 Intake Total 3873 2272 Output Total 500 450 Balance 3373 1822 Weight 89.4 kg 93.6 kg General appearance: PRESENT: no acute distress, cooperative Head exam: PRESENT: atraumatic, normocephalic Eye exam: PRESENT: conjunctiva pink, EOMI Mouth exam: PRESENT: moist Respiratory exam: PRESENT: crackles, decreased breath sounds, rhonchi Cardiovascular exam: PRESENT: irregular rhythm, +S1, +S2 GI/Abdominal exam: PRESENT: soft Rectal exam: PRESENT: deferred Musculoskeletal exam: PRESENT: normal inspection Neurological exam: PRESENT: alert, awake, oriented to person, oriented to place, oriented to time, oriented to situation Psychiatric exam: PRESENT: appropriate affect Skin exam: PRESENT: dry, intact, normal color Results Laboratory Results: 11/27/19 05:55 11/27/19 05:55 11/27/19 11/27/19 05:55 05:55 WBC 9.7 RBC 2.32 L Hgb 7.7 L Hct 21.3 L MCV 92 MCH 33.1 MCHC 36.1 H RDW 13.7 Plt Count 252 Seg Neutrophils % 72.6 Sodium 130.1 L Potassium 4.0 Chloride 101 Carbon Dioxide 24 Anion Gap 5 BUN 23 H Creatinine 0.86 Est GFR ( Amer) > 60 Glucose 73 L Calcium 7.8 L 11/25/19 09:05 Sputum Gram Stain - Final 11/25/19 09:05 Sputum Sputum Culture - Final Yeast, Not Caro Albicans Reduced Normal Natalee 11/24/19 11/24/19 11/24/19 02:40 11:50 19:24 Troponin I 0.329 1.820 1.970 11/25/19 10:38 Troponin I 1.710 Impressions: Chest X-Ray 11/24/19 02:23 IMPRESSION: Patchy airspace disease at the bases, new from prior copyright 2011 [employer]- All Rights Reserved Assessment & Plan - Diagnosis (1) Atrial fibrillation Is this a current diagnosis for this admission?: Yes Plan: Rate control strategy. If able to resume beta elvira. Continue systemic anticoagulation with dabigatran as before. (2) Septic shock Is this a current diagnosis for this admission?: Yes Plan: Much improved. Broad-spectrum antibiotics for treatment of H CAP pneumonia. Overall clinically much better. (3) HCAP (healthcare-associated pneumonia) Is this a current diagnosis for this admission?: Yes Plan: Antibiotics per protocol. Seems to be improving. Better air entry although still has crackles and diminished breath sounds at the lung base on the left (4) Elevated troponin Is this a current diagnosis for this admission?: Yes Plan: Likely demand mediated ischemia in the setting of severe sepsis and pneumonia. Presently chest pain-free Discontinue Heparin. Aspirin statin and beta-elvira as feasible. No indication for risk stratification at the moment
[2019-11-27 13:11] VITALS: BP 122/60
--- NOTE | 2019-11-27 13:20 | PDOC DISCHARGE SUMMARY ---
Impression - Admit/DC Date/PCP Admission Date/Primary Care Provider: 11/24/19 07:13 FERNANDO AYALA MD Discharge Date: 11/27/19 - Discharge Diagnosis (1) HCAP (healthcare-associated pneumonia) Is this a current diagnosis for this admission?: Yes (2) Fever Is this a current diagnosis for this admission?: Yes (3) Abril cell cancer Is this a current diagnosis for this admission?: Yes (4) Elevated troponin Is this a current diagnosis for this admission?: Yes (5) Paroxysmal atrial fibrillation Is this a current diagnosis for this admission?: Yes (6) Amputation of toe of left foot Is this a current diagnosis for this admission?: Yes (7) Diabetic ulcer of left foot Is this a current diagnosis for this admission?: Yes (8) Type 2 diabetes mellitus with diabetic neuropathy Is this a current diagnosis for this admission?: Yes (9) Severe sepsis Is this a current diagnosis for this admission?: Yes - Additional Information Resuscitation Status: Do Not Resuscitate - Confirmed DNR/DNI status voiced by patient in presence of patient's Discharge Diet: Cardiac, Diabetic Discharge Activity: Activity As Tolerated, Balance Activity w/Rest Referrals: [facility] [Provider Group] (Patient will have to make own appointment. [facility] does not allow anyone but the patient to make appointments.) LUCIANO ONEAL MD [ACTIVE STAFF] - 12/02/19 11:15 am Prescriptions: Amoxicillin/Potassium Clav [Augmentin 500-125 Tablet] 1 each PO TID 4 Days tablet Doxycycline Hyclate [Vibramycin 100 mg Tablet] 100 mg PO BID #10 tablet Home Medications: Acetaminophen [Tylenol 325 mg Tablet] 650 mg PO Q4HP PRN 11/24/19 Dabigatran Etexilate Mesylate [Pradaxa 150 mg Capsule] 150 mg PO Q12 11/24/19 Ezetimibe [Zetia 10 mg Tablet] 10 mg PO QAM 11/24/19 Gabapentin [Neurontin 400 mg Capsule] 400 mg PO Q8 11/24/19 Lisinopril [Zestril] 40 mg PO QAM 11/24/19 Metoprolol Succinate [Toprol Xl] 100 mg PO QAM 11/24/19 Multivitamin [Multiple Vitamins] 1 tab PO QAM 11/24/19 Sitagliptin Phosphate [Januvia 50 mg Tablet] 100 mg PO QAM 11/24/19 Triamcinolone Acetonide [Aristocort 0.5% Cream 15 gm] 1 applic TOP TID 11/24/19 Amoxicillin/Potassium Clav [Augmentin 500-125 Tablet] 1 each PO TID 4 Days tablet 11/27/19 Doxycycline Hyclate [Vibramycin 100 mg Tablet] 100 mg PO BID #10 tablet 11/27/19 History of Present Illiness History of Present Illness: HAYDEE KHAN is a 79 year old male with history of diabetes mellitus, 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 fib, who presents to the hospital today after expressive fever and increased weakness at home. Patient reports that patient has been extremely fatigued since getting home. He has also been having persistence of cough since last hospitalization though without significant purulence of expectoration. Patient did have a measured fever at home and several documented fevers in the ER on presentation. Initially patient was hypotensive and received about 2 L of fluids. ICU was contacted for admission and accepted admission this morning but later on upon evaluation by candy butcher Dr Bolton was deemed not to require ICU level of care and as such we directed to the hospitalist service. Patient currently denies any headaches or dizziness. His reports that he had 2 episodes of loose bowel movements today. Hospital Course Hospital Course: Patient was admitted for severe sepsis with fever, leukocytosis hypotension and metabolic encephalopathy. Patient was adequately fluid resuscitated. Patient was started on IV antibiotics broad-spectrum chest imaging showing evidence concerning for HCAP. Patient also experienced a type II NSTEMI/demand perfusion mismatch with troponin elevation all the way up to 1.9 secondary to stress from severe sepsis. Though it was deemed that ACS was unlikely, patient was still treated with heparin drip for 48 hours. Patient at that time was chest pain- free and had no concerning EKG changes for new ischemia. Patient did better and his mental encephalopathy resolved, his fever resolved and leukocytosis also resolved. Patient's mental status significantly improved and patient is feeling ready to go home. There was also concern that his fever may have been partly contributed by Keytruda but there is no way of verifying this. Patient will follow-up with his oncologist for further management of his Abril cell cancer. Physical Exam Vital Signs: Temp Pulse Resp BP Pulse Ox 97.6 F 61 16 113/52 L 100 11/27/19 12:34 11/27/19 12:34 11/27/19 12:34 11/27/19 12:34 11/27/19 12:34 Intake & Output 11/26/19 11/27/19 11/28/19 06:59 06:59 06:59 Intake Total 3873 2272 Output Total 500 450 Balance 3373 1822 Weight 89.4 kg 93.6 kg General appearance: PRESENT: no acute distress, cooperative Neck exam: ABSENT: JVD Respiratory exam: PRESENT: symmetrical, unlabored. ABSENT: tachypnea, wheezes Cardiovascular exam: PRESENT: +S1, +S2 Neurological exam: PRESENT: alert, awake Results Laboratory Results: WBC 9.7 10^3/uL (4.0-10.5) 11/27/19 05:55 RBC 2.32 10^6/uL (4.35-5.55) L 11/27/19 05:55 Hgb 7.7 g/dL (13.5-17.0) L 11/27/19 05:55 Hct 21.3 % (37.9-51.0) L 11/27/19 05:55 MCV 92 fl (80-97) 11/27/19 05:55 MCH 33.1 pg (27.0-33.4) 11/27/19 05:55 MCHC 36.1 g/dL (32.0-36.0) H 11/27/19 05:55 RDW 13.7 % (11.5-14.0) 11/27/19 05:55 Plt Count 252 10^3/uL (150-450) 11/27/19 05:55 Lymph % (Auto) 17.3 % (13-45) 11/27/19 05:55 [place] % (Auto) 6.1 % (3-13) 11/27/19 05:55 Eos % (Auto) 3.5 % (0-6) 11/27/19 05:55 Baso % (Auto) 0.5 % (0-2) 11/27/19 05:55 Absolute Neuts (auto) 7.0 10^3/uL (1.7-8.2) 11/27/19 05:55 Absolute Lymphs (auto) 1.7 10^3/uL (0.5-4.7) 11/27/19 05:55 Absolute Monos (auto) 0.6 10^3/uL (0.1-1.4) 11/27/19 05:55 Absolute Eos (auto) 0.3 10^3/uL (0.0-0.6) 11/27/19 05:55 Absolute Basos (auto) 0.0 10^3/uL (0.0-0.2) 11/27/19 05:55 Total Counted 100 11/25/19 02:30 Seg Neutrophils % 72.6 % (42-78) 11/27/19 05:55 Seg Neuts % (Manual) 88 % (42-78) H 11/25/19 02:30 Band Neutrophils % 3 % (3-5) 11/25/19 02:30 Lymphocytes % (Manual) 7 % (13-45) L 11/25/19 02:30 Monocytes % (Manual) 2 % (3-13) L 11/25/19 02:30 Eosinophils % (Manual) 0 % (0-6) 11/25/19 02:30 Basophils % (Manual) 0 % (0-2) 11/25/19 02:30 Abs Neuts (Manual) 20.8 10^3/uL (1.7-8.2) H 11/25/19 02:30 Abs Lymphs (Manual) 1.6 10^3/uL (0.5-4.7) 11/25/19 02:30 Abs Monocytes (Manual) 0.5 10^3/uL (0.1-1.4) 11/25/19 02:30 Absolute Eos (Manual) 0.0 10^3/uL (0.0-0.6) 11/25/19 02:30 Abs Basophils (Manual) 0.0 10^3/uL (0.0-0.2) 11/25/19 02:30 Toxic Granulation SLIGHT 11/25/19 02:30 Platelet Comment ADEQUATE 11/25/19 02:30 Poikilocytosis SLIGHT 11/24/19 02:40 Ovalocytes SLIGHT 11/24/19 02:40 RBC Morph Comment NORMO-CYTIC/CHROMIC 11/24/19 14:40 PT 26.7 SEC (11.4-15.4) H 11/24/19 14:40 INR 2.41 11/24/19 14:40 APTT 72.0 SEC (23.5-35.8) H 11/26/19 06:20 VBG pH 7.35 (7.30-7.42) 11/24/19 02:40 VBG pCO2 52.4 mmHg (35-63) 11/24/19 02:40 VBG HCO3 28.5 mmol/L (20-32) 11/24/19 02:40 VBG Base Excess 2.1 mmol/L 11/24/19 02:40 Sodium 130.1 mmol/L (137-145) L 11/27/19 05:55 Potassium 4.0 mmol/L (3.6-5.0) 11/27/19 05:55 Chloride 101 mmol/L (98-107) 11/27/19 05:55 Carbon Dioxide 24 mmol/L (22-30) 11/27/19 05:55 Anion Gap 5 (5-19) 11/27/19 05:55 BUN 23 mg/dL (7-20) H 11/27/19 05:55 Creatinine 0.86 mg/dL (0.52-1.25) 11/27/19 05:55 Est GFR ( Amer) > 60 (>60) 11/27/19 05:55 Est GFR (MDRD) Non-Af > 60 (>60) 11/27/19 05:55 Glucose 73 mg/dL (75-110) L 11/27/19 05:55 POC Glucose 160 mg/dL (70-110) H 11/27/19 11:47 Serum Osmolality 278 mOsm/kg (275-301) 11/25/19 02:30 Lactic Acid 1.5 mmol/L (0.7-2.1) 11/24/19 08:30 Calcium 7.8 mg/dL (8.4-10.2) L 11/27/19 05:55 Phosphorus 3.2 mg/dL (2.5-4.5) 11/25/19 02:30 Magnesium 1.7 mg/dL (1.6-2.3) 11/25/19 02:30 Total Bilirubin 1.3 mg/dL (0.2-1.3) 11/24/19 02:40 Direct Bilirubin 0.3 mg/dL (0.0-0.4) 11/24/19 02:40 Neonat Total Bilirubin Not Reportable 11/24/19 02:40 Neonat Direct Bilirubin Not Reportable 11/24/19 02:40 Neonat Indirect Bili Not Reportable 11/24/19 02:40 AST 41 U/L (17-59) 11/24/19 02:40 ALT 13 U/L (<50) 11/24/19 02:40 Alkaline Phosphatase 130 U/L (38-126) H 11/24/19 02:40 Troponin I 1.710 ng/mL 11/25/19 10:38 Total Protein 5.8 g/dL (6.3-8.2) L 11/24/19 02:40 Albumin 3.0 g/dL (3.5-5.0) L 11/24/19 02:40 Random Cortisol 36.30 ug/dL (None Established) 11/24/19 02:40 Urine Color YELLOW 11/25/19 08:30 Urine Appearance SLIGHTLY-CLOUDY 11/25/19 08:30 Urine pH 5.0 (5.0-9.0) 11/25/19 08:30 Ur Specific [place] 1.021 11/25/19 08:30 Urine Protein 30 mg/dL (NEGATIVE) H 11/25/19 08:30 Urine Glucose (UA) NEGATIVE mg/dL (NEGATIVE) 11/25/19 08:30 Urine Ketones NEGATIVE mg/dL (NEGATIVE) 11/25/19 08:30 Urine Blood LARGE (NEGATIVE) H 11/25/19 08:30 Urine Nitrite NEGATIVE (NEGATIVE) 11/25/19 08:30 Urine Bilirubin NEGATIVE (NEGATIVE) 11/25/19 08:30 Urine Urobilinogen NEGATIVE mg/dL (<2.0) 11/25/19 08:30 Ur Leukocyte Esterase NEGATIVE (NEGATIVE) 11/25/19 08:30 Urine WBC (Auto) 19 /HPF 11/25/19 08:30 Urine RBC (Auto) >182 /HPF 11/25/19 08:30 U Hyaline Cast (Auto) 2 /LPF 11/24/19 14:50 Squamous Epi Cells Auto <1 /HPF 11/24/19 14:50 Urine Mucus (Auto) RARE /LPF 11/25/19 08:30 Urine Osmolality 515 mOsm/kg (300-900) 11/25/19 08:30 Urine Sodium < 5 mmol/L (30-90) L 11/25/19 08:30 Urine Ascorbic Acid NEGATIVE (NEGATIVE) 11/25/19 08:30 Time Trough Drawn 1025 11/26/19 10:25 Vancomycin Trough 13.4 ug/mL (5.0-20.0) 11/26/19 10:25 Influenza A (Rapid) NEGATIVE (NEGATIVE) 11/24/19 06:09 Influenza B (Rapid) NEGATIVE (NEGATIVE) 11/24/19 06:09 11/24/19 11/24/19 11/24/19 02:40 11:50 19:24 Troponin I 0.329 1.820 1.970 11/25/19 10:38 Troponin I 1.710 Impressions: Chest X-Ray 11/24/19 02:23 IMPRESSION: Patchy airspace disease at the bases, new from prior copyright 2011 [employer]- All Rights Reserved Plan Time Spent: Less than 30 Minutes Stroke Is this a Stroke Patient?: No Acute Heart Failure - Is this a Heart Failure Patient?: No
[2019-11-27] MEDS: TRIAMCINOLONE ACETONIDE 0.5% CREAM 15 GM TOP SCH ×2 (14:21→14:32)
== END 2019-11-27 14:53 | disposition home or self-care (01) | DRG 871 ==
LOC: ER 02:03 → EH 07:13 → 3W 18:16 → 3S 18:30
PROVIDERS: ADMIT Internal Medicine; ATTEND Internal Medicine
PROC: 02HV33Z Insertion of Infusion Device into Superior Vena Cava, Percutaneous Approach (ICD-10-PCS; principal; 2019-11-24)
DX: A41.9 Sepsis, unspecified organism (principal); J18.9 Pneumonia, unspecified organism; G93.41 Metabolic encephalopathy; I21.A1 Myocardial infarction type 2; L97.528 Non-pressure chronic ulcer of other part of left foot with other specified severity; C07 Malignant neoplasm of parotid gland; R65.20 Severe sepsis without septic shock; Y95 Nosocomial condition; I48.0 Paroxysmal atrial fibrillation; E11.621 Type 2 diabetes mellitus with foot ulcer; E11.40 Type 2 diabetes mellitus with diabetic neuropathy, unspecified; C4A.39 Merkel cell carcinoma of other parts of face; E78.00 Pure hypercholesterolemia, unspecified; E78.5 Hyperlipidemia, unspecified; I10 Essential (primary) hypertension; Z66 Do not resuscitate; Z89.422 Acquired absence of other left toe(s); Z79.899 Other long term (current) drug therapy; Z87.891 Personal history of nicotine dependence; Z88.8 Allergy status to other drugs, medicaments and biological substances
CPT/HCPCS: 36415; 71045; 80048; 80053; 80202; 81001; 82533; 82803; 82962; 83605; 83735; 83930; 83935; 84100; 84300; 84484; 85025; 85610; 85730; 87040; 87070; 87205; 87804; 93005; 93010; 96361; 96365; 96367; 96375; 99291; J0692; J1644; J1720; J1815; J2543; J3370; J3490; J7030; J7050; J7060

== ENCOUNTER 2019-11-28 19:19 | Emergency (ER) | payer MEDICARE, OTHER ==
--- NOTE | 2019-11-28 19:38 | ER Document Report ---
ED Medical Screen (RME) - General Chief Complaint: Problem with Urinary Catheter Stated Complaint: CATHETER SITE LEAKING Time Seen by Provider: 11/28/19 19:35 Primary Care Provider: FERNANDO AYALA MD [Primary Care Provider] - Follow up as needed Notes: HPI: 79-year-old male recently admitted for pneumonia and hypotension where he had a Watt catheter placed. Patient states he had the catheter removed yesterday afternoon but is now leaking urine, states he is able to urinate, denies abdominal or pelvic pain. Denies fever. States that he has had to change his pants multiple times last night and today because he continues to leak urine I have greeted and performed a rapid initial assessment of this patient. A comprehensive ED assessment and evaluation of the patient, analysis of test results and completion of the medical decision making process will be conducted by additional ED providers PHYSICAL EXAMINATION: GENERAL: Well-appearing, well-nourished and in no acute distress. HEAD: Atraumatic, normocephalic. EYES: sclera anicteric, conjunctiva are normal. ENT: Moist mucous membranes. NECK: Normal range of motion LUNGS: Normal work of breathing HEART: 2+ radial pulses bilaterally ABD: limited by positioning for exam in triage. No abdominal pain on palpation, exam deferred in triage EXTREMITIES: no pitting or edema. No cyanosis. NEUROLOGICAL: No focal neurological deficits. Moves all extremities spontaneously and on command. PSYCH: Normal mood, normal affect. SKIN: Warm, Dry, normal turgor, no rashes or lesions noted. TRAVEL OUTSIDE OF THE [place] IN LAST 30 DAYS: No - Related Data Allergies/Adverse Reactions: atorvastatin calcium [From Lipitor] Allergy (Mild, Verified 01/23/16 20:33) Hives Past Medical History - Past Medical History Cardiac Medical History: Reports: Hx Atrial Fibrillation, Hx Hypercholesterolemia, Hx Hypertension Denies: Hx Congestive Heart Failure, Hx Coronary Artery Disease, Hx Heart Attack, Hx Peripheral Vascular Disease, Hx Heart Murmur Pulmonary Medical History: Denies: Hx Asthma, Hx Bronchitis, Hx COPD, Hx Pneumonia, Hx Tuberculosis Neurological Medical History: Reports: Hx Cerebrovascular Accident. Denies: Hx Seizures, Hx Parkinson's Disease Endocrine Medical History: Reports: Hx Diabetes Mellitus Type 2. Denies: Hx Graves' Disease, Hx Hyperthyroidism, Hx Hypothyroidism Malignancy Medical History: Denies Hx Leukemia GI Medical History: Denies: Hx Crohn's Disease, Hx Gastroesophageal Reflux Disease, Hx Hepatitis, Hx Hiatal Hernia, Hx Irritable Bowel, Hx Liver Failure, Hx Pancreatitis, Hx Ulcer Musculoskeltal Medical History: Denies Hx Arthritis, Denies Hx Fibromyalgia, Denies Hx Multiple Sclerosis, Denies Hx Muscular Dystrophy, Denies Hx Systemic L upus Erythematosus Psychiatric Medical History: Denies: Hx Dementia, Hx Depression Traumatic Medical History: Denies: Hx Fractures Infectious Medical History: Denies: Hx Hepatitis, Hx HIV Past Surgical History: Reports: Hx Cholecystectomy, Hx Orthopedic Surgery - RLE. Denies: Hx Appendectomy, Hx Bowel Surgery, Hx Colostomy, Hx Coronary Artery Bypass Graft, Hx Gastric Bypass Surgery, Hx Herniorrhaphy, Hx Open Heart Surgery, Hx Pacemaker, Hx Tonsillectomy - Immunizations Hx Diphtheria, Pertussis, Tetanus Vaccination: No Physical Exam - Vital signs Vitals: Temp Pulse Resp BP Pulse Ox 97.8 F 82 16 135/63 H 100 11/28/19 19:28 11/28/19 19:28 11/28/19 19:28 11/28/19 19:28 11/28/19 19:28 Course - Vital Signs Vital signs: Temp Pulse Resp BP Pulse Ox 97.8 F 82 16 135/63 H 100 11/28/19 19:28 11/28/19 19:28 11/28/19 19:28 11/28/19 19:28 11/28/19 19:28 Doctor's Discharge - Discharge Referrals: FERNANDO AYALA MD [Primary Care Provider] - Follow up as needed
--- NOTE | 2019-11-28 21:27 | ER Document Report ---
ED General - General Chief Complaint: Urinary Incontinence Stated Complaint: CATHETER SITE LEAKING Time Seen by Provider: 11/28/19 19:35 Primary Care Provider: FERNANDO AYALA MD [Primary Care Provider] - Follow up as needed NEHEMIAS QUINTANILLA MD [NO LOCAL MD] - Follow up as needed Mode of Arrival: Ambulatory Information source: Patient TRAVEL OUTSIDE OF THE [place] IN LAST 30 DAYS: No - HPI Onset: This morning Onset/Duration: Gradual Quality of pain: No pain Severity: Mild Pain Level: Denies Associated symptoms: None Exacerbated by: Denies Relieved by: Denies Similar symptoms previously: No Recently seen / treated by doctor: No Notes: 79 year old male with a history of HTN, HLD, AFib, CVA, DM who was just admitted for pneumonia (he had a Watt Catheter during his admission) here for urinary incontinence since having the Watt Catheter removed yesterday. The patient says he has had urine dribbling from his penis off and on all day and it is annoying him since it is wetting his pants. The patient denies a history of prior urinary issues or prostate issues. The patient denies burning with urination, urinary urgency, fevers, chills, sweats, abdominal pain, flank pain. - Related Data Allergies/Adverse Reactions: atorvastatin calcium [From Lipitor] Allergy (Mild, Verified 01/23/16 20:33) Hives Home Medications: pt dc yessterday Past Medical History - General Information source: Patient - Social History Smoking Status: Never Smoker Frequency of alcohol use: None Drug Abuse: None Lives with: Spouse/Significant other Family History: DM, Hypertension Patient has suicidal ideation: No Patient has homicidal ideation: No - Past Medical History Cardiac Medical History: Reports: Hx Atrial Fibrillation, Hx Hy percholesterolemia, Hx Hypertension Denies: Hx Congestive Heart Failure, Hx Coronary Artery Disease, Hx Heart Attack, Hx Peripheral Vascular Disease, Hx Heart Murmur Pulmonary Medical History: Denies: Hx Asthma, Hx Bronchitis, Hx COPD, Hx Pneumonia, Hx Tuberculosis Neurological Medical History: Reports: Hx Cerebrovascular Accident. Denies: Hx Seizures, Hx Parkinson's Disease Endocrine Medical History: Reports: Hx Diabetes Mellitus Type 2. Denies: Hx Graves' Disease, Hx Hyperthyroidism, Hx Hypothyroidism Malignancy Medical History: Denies Hx Leukemia GI Medical History: Denies: Hx Crohn's Disease, Hx Gastroesophageal Reflux Disease, Hx Hepatitis, Hx Hiatal Hernia, Hx Irritable Bowel, Hx Liver Failure, Hx Pancreatitis, Hx Ulcer Musculoskeletal Medical History: Denies Hx Arthritis, Denies Hx Fibromyalgia, Denies Hx Multiple Sclerosis, Denies Hx Muscular Dystrophy, Denies Hx Systemic Lupus Erythematosus Psychiatric Medical History: Denies: Hx Dementia, Hx Depression Traumatic Medical History: Denies: Hx Fractures Infectious Medical History: Denies: Hx Hepatitis, Hx HIV Past Surgical History: Reports: Hx Cholecystectomy, Hx Orthopedic Surgery - RLE. Denies: Hx Appendectomy, Hx Bowel Surgery, Hx Colostomy, Hx Coronary Artery Bypass Graft, Hx Gastric Bypass Surgery, Hx Herniorrhaphy, Hx Open Heart Surgery, Hx Pacemaker, Hx Tonsillectomy - Immunizations Hx Diphtheria, Pertussis, Tetanus Vaccination: No Hx Pneumococcal Vaccination: 09/30/12 Review of Systems - Review of Systems Constitutional: No symptoms reported EENT: No symptoms reported Cardiovascular: No symptoms reported Respiratory: No symptoms reported Gastrointestinal: No symptoms reported Genitourinary: Incontinence - of urine Male Genitourinary: No symptoms reported Musculoskeletal: No symptoms reported Skin: No symptoms reported Hematologic/Lymphatic: No symptoms reported Neurological/Psychological: No symptoms reported -: Yes All other systems reviewed and negative Physical Exam - Vital signs Vitals: Temp Pulse Resp BP Pulse Ox 97.8 F 82 16 135/63 H 100 11/28/19 19:28 11/28/19 19:28 11/28/19 19:28 11/28/19 19:28 11/28/19 19:28 - Notes Notes: GENERAL: Well-appearing, well-nourished and in no acute distress. HEAD: Atraumatic, normocephalic. EYES: Pupils equal round and reactive to light, extraocular movements intact, sclera anicteric, conjunctiva are normal. ENT: Nares patent, oropharynx clear without exudates. Moist mucous membranes. NECK: Normal range of motion, supple without lymphadenopathy or JVD. LUNGS: Breath sounds clear to auscultation bilaterally and equal. No wheezes rales or rhonchi. HEART: Regular rate and rhythm without murmurs, rubs or gallops. ABDOMEN: Soft, nontender, normoactive bowel sounds. No guarding, no rebound. No masses appreciated. EXTREMITIES: Normal range of motion, no pitting or edema. No clubbing or cyanosis. NEUROLOGICAL: Cranial nerves II through XII grossly intact. Normal speech, normal gait. PSYCH: Normal mood, normal affect. SKIN: Warm, Dry, normal turgor, no rashes or lesions noted. Course - Re-evaluation Re-evalutation: 11/28/19 22:20 The patient seems to have some mild incontinence since his Watt Catheter was removed yesterday prior to his discharge from the hospital. The patient's UA looks noninfectious here in the ER. Patient is likely having mild incontinence from he had a Watt Catheter in for several days. Will refer patient to Urology if his incontinence continues. - Vital Signs Vital signs: Temp Pulse Resp BP Pulse Ox 97.8 F 82 16 135/63 H 100 11/28/19 19:28 11/28/19 19:28 11/28/19 19:28 11/28/19 19:28 11/28/19 19:28 - Laboratory Laboratory results interpreted by me: 11/28/19 22:15 Urine Ascorbic Acid 20 H Discharge - Discharge Clinical Impression: Urinary incontinence Qualifiers: Urinary Incontinence type: unspecified incontinence Qualified Code(s): R32 - Unspecified urinary incontinence Condition: Stable Disposition: HOME, SELF-CARE Instructions: Urinary Incontinence ([facility]) Additional Instructions: Follow up with a Urologist if your urinary incontinence continues. Referrals: FERNANDO AYALA MD [Primary Care Provider] - Follow up as needed NEHEMIAS QUINTANILLA MD [NO LOCAL MD] - Follow up as needed
[2019-11-28 22:32] LABS: APPEARANCE,URINE CLEAR; BILIRUBIN,URINE NEGATIVE (NEGATIVE); COLOR,URINE YELLOW; GLUCOSE, URINE NEGATIVE (NEGATIVE); KETONES,URINE NEGATIVE (NEGATIVE); LEUKOCYTE ESTERASE,URINE NEGATIVE (NEGATIVE); NITRITE,URINE NEGATIVE (NEGATIVE); PROTEIN,URINE NEGATIVE (NEGATIVE); UROBILINOGEN,URINE NEGATIVE mg/dL (<2.0)
[2019-11-28 23:52] VITALS: BP 137/66
== END 2019-11-28 23:52 | disposition home or self-care (01) ==
LOC: ER 19:19
DX: R32 Unspecified urinary incontinence (principal); I10 Essential (primary) hypertension; E11.9 Type 2 diabetes mellitus without complications; Z88.8 Allergy status to other drugs, medicaments and biological substances
CPT/HCPCS: 81001; 99283

== ENCOUNTER → 2020-02-04 | Outpatient (CLI) | payer MEDICARE, OTHER ==
--- NOTE | 2020-02-04 10:06 | RADIOLOGY REPORT (SQ) ---
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 Reconstructed coronal and sagittal MPR images reviewed. All images stored on PACS. All CT scanners at this facility use dose modulation, iterative reconstruction, and/or weight based d osing when appropriate to reduce radiation dose to as low as reasonably achievable (ALARA). [facility]: Dose Right [facility]: CareDose [facility]: Dose Right [facility]: Teradose 4D [facility]: [employer] CONTRAST TYPE AND DOSE: contrast/concentration: Isovue 350.00 mg/ml; Total Contrast Delivered: 80.0 ml; Total Saline Delivered: 55.0 ml RENAL FUNCTION: GFR > 60. RADIATION DOSE: . LIMITATIONS: Artifact associated with superior cervical interlaminar fusion. FINDINGS: SKULL BASE: Intact. MAJOR SALIVARY GLANDS: Atrophic left parotid. LYMPHADENOPATHY: Scattered small nodes, largest right level 2 B measuring 13 mm. Stable. MUCOSAL MASSES OR ASYMMETRY: Asymmetry associated with tonsillar loop of the right ICA. LARYNX/CORDS: No abnormal findings. VASCULAR STRUCTURES: The major vessels are patent. LUNG APICES: See separate report. BONES: Intact. THYROID: Normal size. No masses. PARANASAL SINUSES: Clear. OTHER: No other significant finding. IMPRESSION: Stable appearance of the neck. TECHNICAL DOCUMENTATION: JOB ID: [id number] Quality ID # [id number]: Final reports with documentation of one or more dose reduction techniques (e.g., Au tomated exposure control, adjustment of the mA and/or kV according to patient size, use of iterative reconstruction technique) 2010 [employer]- All Rights Reserved Reading location - IP/workstation name: [email or web address]
--- NOTE | 2020-02-04 10:12 | RADIOLOGY REPORT (SQ) ---
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 Images reviewed with lung, soft tissue and bone windows. Reconstructed coronal and sagittal MPR and MIP images reviewed. All images stored on PACS. All CT scanners at this facility use dose modulation, iterative reconstruction, and/or weight based d osing when appropriate to reduce radiation dose to as low as reasonably achievable (ALARA). [facility]: Dose Right [facility]: CareDose [facility]: Dose Right [facility]: Teradose 4D [facility]: [employer] CONTRAST TYPE AND DOSE: See separate report. RENAL FUNCTION: See separate report. RADIATION DOSE: . LIMITATIONS: None. FINDINGS: LUNGS AND PLEURA: Trace right pleural effusion. Unchanged 8 mm ground-glass nodule left l ower lobe image 63. New 13 mm ground-glass nodule left lower lobe image 81. HILAR AND MEDIASTINAL STRUCTURES: No identified masses or abnormal nodes. HEART AND VASCULAR STRUCTURES: No aneurysm or dissection. No central pulmonary emboli. No pericardi al effusion. HARDWARE: None in the chest. UPPER ABDOMEN: Cirrhosis. Limited exam. THYROID AND OTHER SOFT TISSUES: See separate report. BONES: Nothing acute. OTHER: No other significant finding. IMPRESSION: New left lower lobe ground-glass nodule and small right pleural effusion. Stable smalle r ground-glass nodule left lower lobe. TECHNICAL DOCUMENTATION: JOB ID: [id number] Quality ID # [id number]: Final reports with documentation of one or more dose reduction techniques (e.g., Au tomated exposure control, adjustment of the mA and/or kV according to patient size, use of iterative reconstruction technique) 2010 [employer]- All Rights Reserved Reading location - IP/workstation name: [email or web address]
== END ==
LOC: RAD 07:38
PROVIDERS: ATTEND Internal Medicine Hematology & Oncology
DX: C4A.30 Merkel cell carcinoma of unspecified part of face (principal); R91.1 Solitary pulmonary nodule; J90 Pleural effusion, not elsewhere classified
CPT/HCPCS: 70491; 71260; 82565

== ENCOUNTER 2020-02-29 22:12 | Emergency (ER) | payer MEDICARE ==
--- NOTE | 2020-02-29 22:38 | ER Document Report ---
ED Medical Screen (RME) - General Stated Complaint: LEFT FOOT BLEED Time Seen by Provider: 02/29/20 22:28 Primary Care Provider: EDELMIRA MARTINEZ DPM [Primary Care Provider] - Follow up as needed Notes: Patient is an 79-year-old male who presents to the emergency department with a chief complaint of left foot bleeding. Patient went to his teacher of the hearing impaired running and had a treatment on his diabetic foot ulcer. Patient states that around noon today the area started bleeding. He is currently on Pradaxa for atrial fibrillation. He attempted to apply pressure dressings at home, but the area continued to bleed. Exam: Dressing saturated to left foot. Reinforcement dressings were placed until the patient is able to go to her room to have a proper evaluation. I have greeted and performed a rapid initial assessment of this patient. A comprehensive ED assessment and evaluation of the patient, analysis of test results and completion of medical decision making process will be conducted by an additional ED providers. TRAVEL OUTSIDE OF THE [place] IN LAST 30 DAYS: No - Related Data Allergies/Adverse Reactions: atorvastatin calcium [From Lipitor] Allergy (Mild, Verified 02/29/20 22:28) Hives Past Medical History - Past Medical History Cardiac Medical History: Reports: Hx Atrial Fibrillation, Hx Hyperchol esterolemia, Hx Hypertension Denies: Hx Congestive Heart Failure, Hx Coronary Artery Disease, Hx Heart Attack, Hx Peripheral Vascular Disease, Hx Heart Murmur Pulmonary Medical History: Denies: Hx Asthma, Hx Bronchitis, Hx COPD, Hx Pneumonia, Hx Tuberculosis Neurological Medical History: Reports: Hx Cerebrovascular Accident. Denies: Hx Seizures, Hx Parkinson's Disease Endocrine Medical History: Reports: Hx Diabetes Mellitus Type 2. Denies: Hx Graves' Disease, Hx Hyperthyroidism, Hx Hypothyroidism Malignancy Medical History: Denies Hx Leukemia GI Medical History: Denies: Hx Crohn's Disease, Hx Gastroesophageal Reflux Disease, Hx Hepatitis, Hx Hiatal Hernia, Hx Irritable Bowel, Hx Liver Failure, Hx Pancreatitis, Hx Ulcer Musculoskeltal Medical History: Denies Hx Arthritis, Denies Hx Fibromyalgia, Denies Hx Multiple Sclerosis, Denies Hx Muscular Dystrophy, Denies Hx Systemic Lupus Erythematosus Psychiatric Medical History: Denies: Hx Dementia, Hx Depression Traumatic Medical History: Denies: Hx Fractures Infectious Medical History: Denies: Hx Hepatitis, Hx HIV Past Surgical History: Reports: Hx Cholecystectomy, Hx Orthopedic Surgery - RLE. Denies: Hx Appendectomy, Hx Bowel Surgery, Hx Colostomy, Hx Coronary Artery Bypass Graft, Hx Gastric Bypass Surgery, Hx Herniorrhaphy, Hx Open Heart Surgery, Hx Pacemaker, Hx Tonsillectomy - Immunizations Hx Diphtheria, Pertussis, Tetanus Vaccination: No Physical Exam - Vital signs Vitals: Temp Pulse Resp BP Pulse Ox 97.7 F 64 16 116/38 L 100 02/29/20 22:18 02/29/20 22:18 02/29/20 22:18 02/29/20 22:18 02/29/20 22:18 Course - Vital Signs Vital signs: Temp Pulse Resp BP Pulse Ox 97.7 F 64 16 116/38 L 100 02/29/20 22:18 02/29/20 22:18 02/29/20 22:18 02/29/20 22:18 02/29/20 22:18 Doctor's Discharge - Discharge Referrals: EDELMIRA MARTINEZ, BEARM [Primary Care Provider] - Follow up as needed
--- NOTE | 2020-02-29 22:59 | ER Document Report ---
ED General - General Chief Complaint: Wound Recheck Stated Complaint: LEFT FOOT BLEED Time Seen by Provider: 02/29/20 22:28 Primary Care Provider: EDELMIRA MARTINEZ DPM [Primary Care Provider] - Follow up as needed Notes: triage note 02/29/20 22:36 - ED Nursing Note by KATIANA RINCON Evette Num: [id number] : 1940 Patient Age: [age] Y/O MALE PRESENTS WITH A BLOOD LFT FOOT FROM UNKNOWN SOURCE. PT REPORTS HE HAS A DIABETIC ULCER AND HAD IT CLEANED TODAY. PRESENTS NOW WITH BLOODING THROUGH DRESSING. PROVIDER IN ROOM . WOUND DRESSING REINFORCED AT TRIAGE. my notes 79-year-old male rise with chief complaint of bleeding from his left metatarsal head. Patient reports he is had a diabetic ulcer since September of this year and was seen by Dr. Grimm the tool and die repair this morning. He had some wound excision but this was bleeding throughout the day and therefore he arrives for hemostasis. Patient otherwise is doing well. He is somewhat [place] but otherwise very conversive. Patient had the dressing removed which revealed a 2 and half centimeter skin excision from the metatarsal head plantarly and this had a clot on it. The moist 4 x 4 was removed with a scalpel and left the clot with the wound. A Surgifoam was applied and then 4 x 4's with Tiffanie and then Chalino wrap. Patient tolerated this well. He reports he is diabetic and has some neuropathy of his foot. He also has severe hammertoes of his left foot to include first second third fourth and fifth toes. TRAVEL OUTSIDE OF THE [place] IN LAST 30 DAYS: No - HPI Onset: This morning Quality of pain: No pain Severity: None Pain Level: Denies Associated symptoms: None Exacerbated by: Denies Relieved by: Denies Similar symptoms previously: No Recently seen / treated by doctor: No - Related Data Allergies/Adverse Reactions: atorvastatin calcium [From Lipitor] Allergy (Mild, Verified 02/29/20 22:28) Hives Home Medications: BLOOD THINNER Past Medical History - General Information source: Patient - Social History Smoking Status: Former Smoker Cigarette use (# per day): No Chew tobacco use (# tins/day): Yes Smoking Education Provided: No Frequency of alcohol use: None Drug Abuse: None Lives with: Family Family History: Reviewed & Not Pertinent, DM, Hypertension Patient has suicidal ideation: No Patient has homicidal ideation: No - Past Medical History Cardiac Medical History: Reports: Hx Atrial Fibrillation, Hx Hyp ercholesterolemia, Hx Hypertension Denies: Hx Congestive Heart Failure, Hx Coronary Artery Disease, Hx Heart Attack, Hx Peripheral Vascular Disease, Hx Heart Murmur Pulmonary Medical History: Denies: Hx Asthma, Hx Bronchitis, Hx COPD, Hx Pneumonia, Hx Tuberculosis Neurological Medical History: Reports: Hx Cerebrovascular Accident. Denies: Hx Seizures, Hx Parkinson's Disease Endocrine Medical History: Reports: Hx Diabetes Mellitus Type 2. Denies: Hx Graves' Disease, Hx Hyperthyroidism, Hx Hypothyroidism Malignancy Medical History: Denies Hx Leukemia GI Medical History: Denies: Hx Crohn's Disease, Hx Gastroesophageal Reflux Disease, Hx Hepatitis, Hx Hiatal Hernia, Hx Irritable Bowel, Hx Liver Failure, Hx Pancreatitis, Hx Ulcer Musculoskeletal Medical History: Denies Hx Arthritis, Denies Hx Fibromyalgia, Denies Hx Multiple Sclerosis, Denies Hx Muscular Dystrophy, Denies Hx Systemic Lupus Erythematosus Psychiatric Medical History: Denies: Hx Dementia, Hx Depression Traumatic Medical History: Denies: Hx Fractures Infectious Medical History: Denies: Hx Hepatitis, Hx HIV Past Surgical History: Reports: Hx Cholecystectomy, Hx Orthopedic Surgery - RLE. Denies: Hx Appendectomy, Hx Bowel Surgery, Hx Colostomy, Hx Coronary Artery Bypass Graft, Hx Gastric Bypass Surgery, Hx Herniorrhaphy, Hx Open Heart Surgery, Hx Pacemaker, Hx Tonsillectomy - Immunizations Hx Diphtheria, Pertussis, Tetanus Vaccination: No Hx Pneumococcal Vaccination: 09/30/12 Review of Systems - Review of Systems Constitutional: No symptoms reported EENT: No symptoms reported Cardiovascular: No symptoms reported Respiratory: No symptoms reported Gastrointestinal: No symptoms reported Genitourinary: No symptoms reported Male Genitourinary: No symptoms reported Musculoskeletal: No symptoms reported Skin: No symptoms reported Hematologic/Lymphatic: See HPI, Easy bleeding Neurological/Psychological: No symptoms reported Physical Exam - Vital signs Vitals: Temp Pulse Resp BP Pulse Ox 97.7 F 64 16 116/38 L 100 02/29/20 22:18 02/29/20 22:18 02/29/20 22:18 02/29/20 22:18 02/29/20 22:18 Interpretation: Normal - General General appearance: Alert - HEENT Head: Normocephalic, Atraumatic Eyes: Normal Pupils: PERRL Neck: Normal - Respiratory Respiratory status: No respiratory distress Chest status: Nontender Breath sounds: Normal Chest palpation: Normal - Cardiovascular Rhythm: Regular Heart sounds: Normal auscultation Murmur: No - Abdominal Inspection: Normal Distension: No distension Bowel sounds: Normal Tenderness: Nontender Organomegaly: No organomegaly - Rectal Hemorrhoids: Other - deferred - Genitourinary Tenderness: Other - deferred - Back Back: Normal - Extremities General upper extremity: Normal inspection, Nontender, Normal color, Normal ROM, Normal temperature General lower extremity: Normal inspection, Nontender, Normal color, Normal ROM, Normal temperature, Normal weight bearing. No: Chloé's sign - Neurological Neuro grossly intact: Yes Cognition: Normal Orientation: AAOx4 [place] Coma Scale Eye Opening: Spontaneous [place] Coma Scale Verbal: Oriented [place] Coma Scale Motor: Obeys Commands [place] Coma Scale Total: 15 Speech: Normal Motor strength normal: LUE, RUE, LLE, RLE Sensory: Normal - Psychological Associated symptoms: Normal affect - Skin Skin Temperature: Warm Skin Moisture: Dry Course - Vital Signs Vital signs: Temp Pulse Resp BP Pulse Ox 97.7 F 64 16 116/38 L 100 02/29/20 22:28 02/29/20 22:18 02/29/20 22:18 02/29/20 22:18 02/29/20 22:18 - Laboratory Result Diagrams: 02/29/20 23:47 02/29/20 23:47 Laboratory results interpreted by me: 02/29/20 02/29/20 02/29/20 23:47 23:47 23:47 RBC 3.02 L Hgb 9.8 L Hct 28.2 L RDW 16.0 H Eos % (Auto) 10.1 H Absolute Eos (auto) 0.7 H PT 22.2 H APTT 108.3 H Sodium 126.2 L Chloride 95 L Glucose 178 H Calcium 8.1 L Alkaline Phosphatase 164 H Total Protein 5.6 L Albumin 2.9 L Procedures - Laceration/Wound Repair Left Foot Time completed: 00:08 Wound length (cm): 2.5 Wound's Depth, Shape: Irregular Laceration pre-procedure: Mindy applied Volume Anesthetic (mLs): 0 Wound explored: Clean Irrigated w/ Saline (mLs): 10 Wound Debrided: Minimal Wound Repaired With: Other - surgifoam Number of Sutures: 0 Post-procedure wound care: Sterile dressing applied Post-procedure NV exam normal: Yes Complications: Yes Critical Care Note - Critical Care Note Total time excluding time spent on procedures (mins): 90 Discharge - Discharge Clinical Impression: s/p surgical bleeding of MT head plantar Anemia Qualifiers: Anemia type: unspecified type Qualified Code(s): D64.9 - Anemia, unspecified Condition: Good Disposition: HOME, SELF-CARE Additional Instructions: Follow-up with podiatry and with your surgeon return to ER as needed take medicines as directed keep wound elevated if possible for the next 24 hours Referrals: EDELMIRA MARTINEZ DPM [Primary Care Provider] - Follow up as needed
--- NOTE | 2020-02-29 23:30 | RADIOLOGY REPORT (SQ) ---
EXAM DESCRIPTION: XR left FOOT 3 OR MORE VIEWS COMPLETED DATE/TME: 02/29/2020 22:35 CLINICAL HISTORY: 79 years, Male, diabetic foot ulcer COMPARISON: X-ray left foot 10/16/2019 NUMBER OF VIEWS: TECHNIQUE: LIMITATIONS: None. FINDINGS: Somewhat limited examination due to the overlying bandage. There is soft tissue swelling. There is no definite radiographic evidence of osteomyelitis. There are degenerative changes involving tarsal bone joints as well as metatarsophalangeal joints. There are postoperative changes with fusion of the first metatarsophalangeal joint. There is atherosclerotic arterial calcification. There is no significant change, as compared with the prior x-ray(s). IMPRESSION: Soft tissue swelling. No definite radiographic evidence of osteomyelitis. Degenerative and postoperative changes. copyright 2010 [employer]- All Rights Reserved
[2020-02-29 23:58] LABS: ABSOLUTE EOSINOPHILS # (AUTO) 0.7 10^3/uL (0.0-0.6); ABSOLUTE LYMPHOCYTES (AUTO) 1.4 10^3/uL (0.5-4.7); ABSOLUTE MONOCYTES (AUTO) 0.6 10^3/uL (0.1-1.4); ABSOLUTE NEUT (AUTO) 3.9 10^3/uL (1.7-8.2); BASOPHILS % (AUTO) 0.4 % (0-2); EOSINOPHILS % (AUTO) 10.1 % (0-6); HEMATOCRIT 28.2 % (37.9-51.0); HEMOGLOBIN 9.8 g/dL (13.5-17.0); LYMPHOCYTES % (AUTO) 20.6 % (13-45); MEAN CORPUSCULAR HEMOGLOBIN 32.4 pg (27.0-33.4); MEAN CORPUSCULAR HGB CONC 34.6 g/dL (32.0-36.0); MEAN CORPUSCULAR VOLUME 94 fl (80-97); MONOCYTES % (AUTO) 9.6 % (3-13); PLATELET COUNT 322 10^3/uL (150-450); RED BLOOD COUNT 3.02 10^6/uL (4.35-5.55); SEGMENTED NEUTROPHILS % (AUTO) 59.3 % (42-78); TOTAL CELLS COUNTED % (AUTO) 100 %; WHITE BLOOD COUNT 6.6 10^3/uL (4.0-10.5)
[2020-03-01 00:11] LABS: INTERNATIONAL RATION (INR) 1.92; PROTHROMBIN TIME 22.2 SEC (11.4-15.4)
[2020-03-01 00:13] LABS: PARTIAL THROMBOPLASTIN TIME 108.3 SEC (23.5-35.8)
[2020-03-01 00:23] LABS: ALBUMIN 2.9 g/dL (3.5-5.0); ALKALINE PHOSPHATASE 164 U/L (38-126); ANION GAP 5 (5-19); ASPARTATE AMINO TRANSFERASE 23 U/L (17-59); BILIRUBIN,DIRECT 0.1 mg/dL (0.0-0.4); BILIRUBIN,TOTAL 0.7 mg/dL (0.2-1.3); BLOOD UREA NITROGEN 20 mg/dL (7-20); CALCIUM 8.1 mg/dL (8.4-10.2); CARBON DIOXIDE 26 mmol/L (22-30); CHLORIDE 95 mmol/L (98-107); GLUCOSE 178 mg/dL (75-110); POTASSIUM 4.4 mmol/L (3.6-5.0); TOTAL PROTEIN 5.6 g/dL (6.3-8.2)
[2020-03-01] MEDS ORDERED: TRANEXAMIC ACID INJ/PF 1,000 MG/10 ML SDV ONE (01:16)
[2020-03-01 02:25] VITALS: BP 134/58
== END 2020-03-01 02:24 | disposition home or self-care (01) ==
LOC: ER 22:12
DX: M96.831 Postprocedural hemorrhage of a musculoskeletal structure following other procedure (principal); Y83.8 Other surgical procedures as the cause of abnormal reaction of the patient, or of later complication, without mention of misadventure at the time of the procedure; E11.621 Type 2 diabetes mellitus with foot ulcer; L97.529 Non-pressure chronic ulcer of other part of left foot with unspecified severity; E11.40 Type 2 diabetes mellitus with diabetic neuropathy, unspecified; D64.9 Anemia, unspecified; M20.42 Other hammer toe(s) (acquired), left foot; I10 Essential (primary) hypertension; I48.91 Unspecified atrial fibrillation; Z79.02 Long term (current) use of antithrombotics/antiplatelets; Z88.8 Allergy status to other drugs, medicaments and biological substances; Z87.891 Personal history of nicotine dependence
CPT/HCPCS: 36415; 80053; 85025; 85610; 85730; 99285

== ENCOUNTER 2020-03-01 08:33 | Emergency (ER) | payer MEDICARE, OTHER ==
[2020-03-01 11:44] VITALS: BP 136/64
--- NOTE | 2020-03-02 08:41 | ER Document Report ---
Entered by WAYNE STEEN SCRIBE 03/01/20 [id number] Acting as scribe for:SEAN CHENG MD ED Wound - General Chief Complaint: Wound Recheck Stated Complaint: FOOT BLEEDING/PAIN Time Seen by Provider: 03/01/20 09:16 Primary Care Provider: IKER LLOYD DO [Primary Care Provider] - Follow up as needed Information source: Patient, [facility] Records Notes: This 79-year-old male patient comes emergency room for bleeding through the bandages on his left foot. He was seen here last night for bleeding from a debrided diabetic ulcer on the bottom of his left foot. The wound was treated and bandaged tightly, but blood has soaked through the gauze and the Chalino wrap. He has no other complaints or symptoms related to the current problem. TRAVEL OUTSIDE OF THE [place] IN LAST 30 DAYS: No - Related Data Allergies/Adverse Reactions: atorvastatin calcium [From Lipitor] Allergy (Mild, Verified 02/29/20 22:28) Hives Past Medical History - General Information source: Patient, [facility] Records - Social History Smoking Status: Former Smoker Chew tobacco use (# tins/day): No Smoking Education Provided: No Frequency of alcohol use: None Occupation: Retired Lives with: Spouse/Significant other Family History: Reviewed & Not Pertinent, DM, Hypertension - Past Medical History Cardiac Medical History: Reports: Hx Atrial Fibrillation, Hx Hypercholesterolemia, Hx Hypertension Neurological Medical History: Reports: Hx Cerebrovascular Accident Endocrine Medical History: Reports: Hx Diabetes Mellitus Type 2 Past Surgical History: Reports: Hx Cholecystectomy, Hx Orthopedic Surgery - RLE - Immunizations Hx Diphtheria, Pertussis, Tetanus Vaccination: No Hx Pneumococcal Vaccination: 09/30/12 Review of Systems - Review of Systems Constitutional: No symptoms reported EENT: No symptoms reported Cardiovascular: No symptoms reported Respiratory: No symptoms reported Gastrointestinal: No symptoms reported Genitourinary: No symptoms reported Musculoskeletal: See HPI Skin: See HPI Hematologic/Lymphatic: No symptoms reported Neurological/Psychological: Sensory change - Decreased sensation to the feet secondary to diabetic peripheral neuropathy. Physical Exam - Vital signs Vitals: Temp Pulse Resp BP Pulse Ox 97.8 F 66 18 99/43 L 100 03/01/20 08:40 03/01/20 08:40 03/01/20 08:40 03/01/20 08:40 06/02/20 08:40 - General General appearance: Appears well, Alert In distress: None - HEENT Head: Normocephalic, Atraumatic Eyes: Normal Pupils: PERRL Neck: Normal - Respiratory Respiratory status: No respiratory distress - Cardiovascular Rhythm: Regular - Abdominal Inspection: Normal - Back Back: Normal - Extremities General upper extremity: Normal inspection General lower extremity: Other - See the procedure note for details about the left foot wound. - Neurological Neuro grossly intact: Yes - Except for some peripheral sensory loss from diabetic peripheral neuropathy - Psychological Associated symptoms: Normal affect, Normal mood - Skin Skin Temperature: Warm Skin Moisture: Dry Skin Color: Normal Course - Re-evaluation Re-evalutation: 03/01/20 09:30 PROCEDURE: The Chalino wrap on the left foot was removed. It was noted to be partially soaked through from blood. The bulky dressing were mostly saturated with blood. All of this was carefully removed exposing the ulcerated debrided area on the plantar surface under the first and second metatarsal head region. At this time there was only a very slight ooze noted from 2 areas within this wound which was approximately 1-1/2 x 1/2 cm. A hemostatic dressing was folded into a square and applied directly to the debrided region. After this 4 x 4 gauze was applied with the first layers folded to provide a good pressure point for keeping pressure on the wound. Next a small amount of co-band was placed to hold the dressing in place. Then a 4 inch Chalino wrap was applied with some pressure on the initial wraps and then the remainder of the Chalino wrap was placed around the foot and ankle in a [id number] type pattern. 03/01/20 11:25 Serial re-evaluations of the wound over the past 2 hours have not shown any bleeding coming through the bandages. Patient will be discharged home with recommendations to elevate his foot. - Vital Signs Vital signs: Temp Pulse Resp BP Pulse Ox 98 F 72 18 136/64 H 97 03/01/20 11:44 03/01/20 11:44 03/01/20 11:44 03/01/20 11:31 03/01/20 11:44 Discharge - Discharge Clinical Impression: Post-op bleeding Qualifiers: Surgical complication system/body Area: subcutaneous tissue Procedure type: non-dermatologic Qualified Code(s): L76.22 - Postprocedural hemorrhage of skin and subcutaneous tissue following other procedure Condition: Stable Disposition: HOME, SELF-CARE Additional Instructions: Elevate your foot as much as possible. Keep the bandage intact and clean. Follow-up with your squeegee operator tomorrow to recheck your wound. RETURN TO THE EMERGENCY ROOM IF ANY NEW OR WORSENING SYMPTOMS. Referrals: IKER LLOYD, DO [Primary Care Provider] - Follow up as needed I personally performed the services described in the documentation, reviewed and edited the documentation which was dictated to the scribe in my presence, and it accurately records my words and actions.
== END 2020-03-01 11:50 | disposition home or self-care (01) ==
LOC: ER 08:33
DX: L76.22 Postprocedural hemorrhage of skin and subcutaneous tissue following other procedure (principal); E11.621 Type 2 diabetes mellitus with foot ulcer; L97.529 Non-pressure chronic ulcer of other part of left foot with unspecified severity; E11.42 Type 2 diabetes mellitus with diabetic polyneuropathy; M79.672 Pain in left foot; I48.91 Unspecified atrial fibrillation; E78.00 Pure hypercholesterolemia, unspecified; I10 Essential (primary) hypertension; Z90.49 Acquired absence of other specified parts of digestive tract
CPT/HCPCS: 99282

== ENCOUNTER 2020-03-11 08:53 | Emergency (ER) | payer MEDICARE, OTHER ==
--- NOTE | 2020-03-11 09:14 | ER Document Report ---
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 Patient has had dark stools during the evening last night and this morning. He presented via EMS hypotensive with rectal bleeding. He complains of some mild lower abdominal discomfort, no guarding, no rebound. TRAVEL OUTSIDE OF THE [place] IN LAST 30 DAYS: No - Related Data Allergies/Adverse Reactions: atorvastatin calcium [From Lipitor] Allergy (Mild, Verified 02/29/20 22:28) Hives Past Medical History - Social History Smoking Status: Unknown if Ever Smoked Family History: Reviewed & Not Pertinent, DM, Hypertension - Past Medical History Cardiac Medical History: Reports: Hx Atrial Fibrillation, Hx Hypercholesterolemia, Hx Hypertension Denies: Hx Congestive Heart Failure, Hx Coronary Artery Disease, Hx Heart Attack, Hx Peripheral Vascular Disease, Hx Heart Murmur Pulmonary Medical History: Denies: Hx Asthma, Hx Bronchitis, Hx COPD, Hx Pneumonia, Hx Tuberculosis Neurological Medical History: Reports: Hx Cerebrovascular Accident. Denies: Hx Seizures, Hx Parkinson's Disease Endocrine Medical History: Reports: Hx Diabetes Mellitus Type 2. Denies: Hx Graves' Disease, Hx Hyperthyroidism, Hx Hypothyroidism Malignancy Medical History: Denies Hx Leukemia GI Medical History: Denies: Hx Crohn's Disease, Hx Gastroesophageal Reflux Disease, Hx Hepatitis, Hx Hiatal Hernia, Hx Irritable Bowel, Hx Liver Failure, Hx Pancreatitis, Hx Ulcer Musculoskeletal Medical History: Denies Hx Arthritis, Denies Hx Fibromyalgia, Denies Hx Multiple Sclerosis, Denies Hx Muscular Dystrophy, Denies Hx Systemic Lupus Erythematosus Psychiatric Medical History: Denies: Hx Dementia, Hx Depression Traumatic Medical History: Denies: Hx Fractures Infectious Medical History: Denies: Hx Hepatitis, Hx HIV Past Surgical History: Reports: Hx Cholecystectomy, Hx Orthopedic Surgery - RLE. Denies: Hx Appendectomy, Hx Bowel Surgery, Hx Colostomy, Hx Coronary Artery Bypass Graft, Hx Gastric Bypass Surgery, Hx Herniorrhaphy, Hx Open Heart Surge ry, Hx Pacemaker, Hx Tonsillectomy - Immunizations Hx Diphtheria, Pertussis, Tetanus Vaccination: No Hx Pneumococcal Vaccination: 09/30/12 Review of Systems - Review of Systems Notes: Constitutional: Negative for fever. HENT: Negative for sore throat. Eyes: Negative for visual changes. Cardiovascular: Negative for chest pain. Respiratory: Negative for shortness of breath. Gastrointestinal: + Abdominal pain, see HPI Genitourinary: Negative for dysuria. Musculoskeletal: Negative for back pain. Skin: Negative for rash. Neurological: Negative for headaches, weakness or numbness. 10 point ROS negative except as marked above and in HPI. Physical Exam - Vital signs Vitals: Resp 03/11/20 09:01 - Notes Notes: PHYSICAL EXAMINATION: Physical Exam: General: Mildly ill-appearing 79-year-old man in no acute distress HEENT: NC/AT, pupils equal round and reactive to light, MM moist,nares clear, oropharynx clear, airway patent Neck: supple, no adenopathy, no masses. Good range of motion Lungs: clear, no wheezing, no rales no rhonchi CVS: Regular rate and rhythm no murmur gallop or rub Abdomen: Soft, active, nontender, no masses, no hepatosplenomegaly rectal exam: Port wine appearing blood with digital exam, Hemoccult positive Ext: No edema, clubbing or cyanosis. Neuro: Alert and responsive, moving all 4 extremities on command, cranial nerves intact, no focal findings Skin: Intact no open lesions, no rash PSYCH: Normal mood, normal affect. Course - Re-evaluation Re-evalutation: 03/11/20 09:41 I have discussed the patient with Dr. Alexander, he suggested CT scan and possible evaluation for GI if needed. 03/11/20 13:[address] scan was discussed with the hematology oncologist, Dr. Alexander, since we do not have a gastroenterology diamond broker coverage the patient will need to be transferred to a higher level of care. [facility] transfer was contacted, has a step to the patient in transfer. Patient is hemodynamically stable, receiving transfusion of 2 units of packed RBCs. 03/11/20 14:57 I was called to the room because the patient has had a very large amount of blood per rectum soaking the sheets on the bed and calling seeing a pooling of blood onto the floor. Blood pressure 106 systolic. Given he is received 1 unit of transfused packed RBCs 1/3 unit is ordered from the blood bank and the patient has been given TXA 1 g IV. - Vital Signs Vital signs: Temp Pulse Resp BP Pulse Ox 97.6 F 76 16 116/52 L 100 03/11/20 16:58 03/11/20 16:58 03/11/20 16:58 03/11/20 16:58 03/11/20 16:58 - Laboratory Result Diagrams: 03/11/20 09:10 03/11/20 09:10 Laboratory results interpreted by me: 03/11/20 03/11/20 03/11/20 09:10 09:10 09:10 RBC 2.06 L Hgb 6.4 L Hct 18.9 L RDW 16.4 H PT 29.7 H APTT 85.4 H Sodium 130.8 L Carbon Dioxide 19 L BUN 45 H Glucose 143 H Calcium 7.5 L Total Protein 4.5 L Albumin 2.1 L Crossmatch 03/11/20 09:10 RBC Hgb Hct RDW PT APTT Sodium Carbon Dioxide BUN Glucose Calcium Total Protein Albumin Crossmatch See Detail - Diagnostic Test Radiology reviewed: Image reviewed, Reports reviewed Radiology results interpreted by me: 03/11/20 13:26 CT the abdomen and pelvis with oral and IV contrast: Fluid in the colon, no thickening or inflammatory changes noted. Otherwise a normal CT scan. - EKG Interpretation by Me EKG shows normal: Sinus rhythm - Rate 85, left axis deviation, low voltage in frontal leads, borderline R wave progression in anterior leads, and nonspecific repolarization abnormality diffusely. Borderline prolonged QT interval. There is no acute ST segment abnormalities. Critical Care Note - Critical Care Note Total time excluding time spent on procedures (mins): 60 - Critical care time spent obtaining history from patient or surrogate, discussions with consultants, development of treatment plan with patient or surrogate, evaluation of patient's response to treatment, examination of patient, ordering and performing treatments and interventions, ordering and review of laboratory studies, re- evaluation of patient's condition, ordering and review of radiographic studies and review of old charts Discharge - Discharge Clinical Impression: Severe anemia GI bleed Qualifiers: GI bleed type/associated pathology: unspecified gastrointestinal hemorrhage type Qualified Code(s): K92.2 - Gastrointestinal hemorrhage, unspecified Condition: Good Disposition: [facility] Referrals: LUCIANO ONEAL MD [ACTIVE STAFF] - Follow up as needed
[2020-03-11] MEDS ORDERED: NORMAL SALINE 1000 ML 1,000 ML IV ONE (09:15)
[2020-03-11 09:31] LABS: ABSOLUTE BASOPHILS # (AUTO) 0.1 10^3/uL (0.0-0.2); ABSOLUTE EOSINOPHILS # (AUTO) 0.1 10^3/uL (0.0-0.6); ABSOLUTE LYMPHOCYTES (AUTO) 1.7 10^3/uL (0.5-4.7); ABSOLUTE MONOCYTES (AUTO) 0.6 10^3/uL (0.1-1.4); ABSOLUTE NEUT (AUTO) 6.4 10^3/uL (1.7-8.2); BASOPHILS % (AUTO) 0.9 % (0-2); EOSINOPHILS % (AUTO) 1.4 % (0-6); HEMATOCRIT 18.9 % (37.9-51.0); LYMPHOCYTES % (AUTO) 19.5 % (13-45); MEAN CORPUSCULAR HEMOGLOBIN 31.2 pg (27.0-33.4); MEAN CORPUSCULAR HGB CONC 34.1 g/dL (32.0-36.0); MEAN CORPUSCULAR VOLUME 92 fl (80-97); MONOCYTES % (AUTO) 7.1 % (3-13); PLATELET COUNT 230 10^3/uL (150-450); RED BLOOD COUNT 2.06 10^6/uL (4.35-5.55); RED CELL DISTRIBUTION WIDTH 16.4 % (11.5-14.0); SEGMENTED NEUTROPHILS % (AUTO) 71.1 % (42-78); TOTAL CELLS COUNTED % (AUTO) 100 %; WHITE BLOOD COUNT 8.9 10^3/uL (4.0-10.5)
[2020-03-11 09:33] LABS: HEMOGLOBIN 6.4 g/dL (13.5-17.0)
[2020-03-11 09:34] LABS: INTERNATIONAL RATION (INR) 2.76; PROTHROMBIN TIME 29.7 SEC (11.4-15.4)
[2020-03-11 09:36] LABS: PARTIAL THROMBOPLASTIN TIME 85.4 SEC (23.5-35.8)
[2020-03-11 09:53] LABS: ALBUMIN 2.1 g/dL (3.5-5.0); ALKALINE PHOSPHATASE 52 U/L (38-126); ANION GAP 7 (5-19); ASPARTATE AMINO TRANSFERASE 17 U/L (17-59); BILIRUBIN,DIRECT 0.1 mg/dL (0.0-0.4); BILIRUBIN,TOTAL 0.5 mg/dL (0.2-1.3); BLOOD UREA NITROGEN 45 mg/dL (7-20); CALCIUM 7.5 mg/dL (8.4-10.2); CARBON DIOXIDE 19 mmol/L (22-30); CHLORIDE 105 mmol/L (98-107); GLUCOSE 143 mg/dL (75-110); POTASSIUM 4.3 mmol/L (3.6-5.0); TOTAL PROTEIN 4.5 g/dL (6.3-8.2)
[2020-03-11] MEDS ORDERED: NORMAL SALINE 250 ML IV PRN ×4 (10:19→14:53)
[2020-03-11] MEDS ORDERED: PANTOPRAZOLE SODIUM 40 MG VIAL IV ONE (10:20)
[2020-03-11] MEDS ORDERED: PANTOPRAZOLE SODIUM 40 MG VIAL IV PRN (10:21)
[2020-03-11] MEDS ORDERED: ONDANSETRON HCL INJ/PF 4 MG/2 ML SDV IV ONE (11:15)
--- NOTE | 2020-03-11 12:44 | RADIOLOGY REPORT (SQ) ---
EXAM DESCRIPTION: CT ABD/PELVIS WITH IV ORAL IMAGES COMPLETED DATE/TIME: 03/11/2020 11:10 am REASON FOR STUDY: Abdominal pain/GI bleed in right and left lower quadrant pain. Previous cholecyst ectomy. COMPARISON: None. TECHNIQUE: CT scan of the abdomen and pelvis performed using helical scanning technique with dynamic intravenous contrast injection. Oral contrast was given. Images reviewed with lung, soft tissue, an d bone windows. Reconstructed coronal and sagittal MPR images reviewed. Delayed images for evaluation of the urinary system also acquired. All images stored on PACS. All CT scanners at this facility use dose modulation, iterative reconstruction, and/or weight based d osing when appropriate to reduce radiation dose to as low as reasonably achievable (ALARA). [facility]: Dose Right [facility]: CareDose [facility]: Dose Right [facility]: Teradose 4D [facility]: The App3 CONTRAST TYPE AND DOSE: 80 mL Omnipaque 350- low osmolar. RENAL FUNCTION: Creatinine 1.15 today. RADIATION DOSE: CT Rad equipment meets quality standard of care and radiation dose reduction techniq ues were employed. CTDIvol: 5.8 - 7.6 mGy. DLP: 768 mGy-cm.. LIMITATIONS: None. FINDINGS: LOWER CHEST: There is atelectasis and trace left effusion. Coronary artery atherosclerosi s. Small pericardial effusion/ pericardial thickening. LIVER: Normal size. No masses. No dilated ducts. SPLEEN: Normal size. No focal lesions. PANCREAS: No masses. No significant calcifications. No adjacent inflammation or peripancreatic fluid collections. Pancreatic duct not dilated. GALLBLADDER: No identified stones by CT criteria. No inflammatory changes to suggest cholecystitis. ADRENAL GLANDS: No significant masses or asymmetry. RIGHT KIDNEY AND URETER: No solid masses. No significant calcifications. No hydronephrosis or hyd roureter. LEFT KIDNEY AND URETER: No solid masses. No significant calcifications. No hydronephrosis or hydr oureter. AORTA AND VESSELS: No aneurysm. No dissection. Renal arteries, SMA, celiac without stenosis. RETROPERITONEUM: No retroperitoneal adenopathy, hemorrhage or masses. BOWEL AND PERITONEAL CAVITY: Diffuse fluid-filled colon, consistent with diarrheal state. No colon w all thickening or inflammatory change. No bowel obstruction. No pneumatosis intestinalis. Gastric distension, however the enteric contrast has progressed to the small bowel. No ascites or pneumoperi toneum. APPENDIX: Not visualized. PELVIS: No mass. No free fluid. Normal bladder. ABDOMINAL WALL: No mass or hernia. Bilateral inguinal lymph nodes are probably reactive. BONES: Multilevel spondylosis and degenerative disc disease. No suspicious bone lesions. OTHER: No other significant finding. IMPRESSION: 1. Diffuse fluid-filled colon suggestive of diarrheal state. No bowel obstruction or evidence of acu te inflammation. 2. Small pericardial effusion. 3. Coronary artery atherosclerosis. TECHNICAL DOCUMENTATION: JOB ID: [id number] Quality ID # [id number]: Final reports with documentation of one or more dose reduction techniques (e.g., Au tomated exposure control, adjustment of the mA and/or kV according to patient size, use of iterative reconstruction technique) 2010 [employer]- All Rights Reserved Reading location - IP/workstation name: [email or web address]
[2020-03-11] MEDS ORDERED: TRANEXAMIC ACID INJ/PF 1,000 MG/10 ML SDV IV ONE (15:00)
--- NOTE | 2020-03-11 19:18 | EKG REPORT ---
SEVERITY:- ABNORMAL ECG - ATRIAL FLUTTER, A-RATE 217 LAD, CONSIDER LAFB OR INFERIOR INFARCT LOW VOLTAGE IN FRONTAL LEADS BORDERLINE R WAVE PROGRESSION, ANTERIOR LEADS NONSPECIFIC REPOL ABNORMALITY, DIFFUSE LEADS BORDERLINE PROLONGED QT INTERVAL : Confirmed by: Shey Connolly MD 11-Mar-2020 19:18:14
[2020-03-11 19:20] LABS: HEMATOCRIT 23.6 % (37.9-51.0); MEAN CORPUSCULAR HEMOGLOBIN 30.3 pg (27.0-33.4); MEAN CORPUSCULAR HGB CONC 33.9 g/dL (32.0-36.0); MEAN CORPUSCULAR VOLUME 89 fl (80-97); PLATELET COUNT 216 10^3/uL (150-450); RED BLOOD COUNT 2.64 10^6/uL (4.35-5.55); RED CELL DISTRIBUTION WIDTH 17.2 % (11.5-14.0); WHITE BLOOD COUNT 7.4 10^3/uL (4.0-10.5)
[2020-03-11 22:43] VITALS: BP 121/64
--- NOTE | 2020-03-11 22:46 | ER Document Report ---
Doctor's Note Notes: 03/11/20 22:46 Care of this patient was turned over to me during my shift. In short this is an 79-year-old male with lower GI bleed, who received blood, then had a large bloody bowel movement and became hypotensive. After I resumed care, the patient's blood pressure and heart rate remained stable. He did have 1 more sma ll maroon bowel movement, but his belly remains soft, his blood pressure is currently 121/64. He has been accepted to [facility] for further care, transport is here at this time. Patient is stable for transport to tertiary care center.
== END 2020-03-11 22:45 | disposition short-term general hospital (02) ==
LOC: ER 08:53
DX: K92.2 Gastrointestinal hemorrhage, unspecified (principal); D64.9 Anemia, unspecified; I95.9 Hypotension, unspecified; I10 Essential (primary) hypertension; E11.9 Type 2 diabetes mellitus without complications; R10.9 Unspecified abdominal pain
CPT/HCPCS: 93005; 96376; 99291; 96361; 96375; 96365; 96366; 86900; 86901; 36415; 36430; 86850; 85025; 85610; 85730; 80053; 86920; 74177; 93010; P9016; C9113; J2405; J7030; J3490; 82270